=== PATIENT | male | born 1945 | race Caucasian/White ===

== ENCOUNTER 2017-09-29 10:27 | Inpatient (IN) ==
--- NOTE | 2017-09-29 10:40 | History & Physical Report ---
Date of Encounter: 09/29/17 Time of Encounter: 10:40 24 Hour HP Update - Instructions Instructions: If the History and Physical is less than 30 days old and was completed prior to A.M. admission and or procedure and has NOT been updated on calendar day of procedure please complete this update prior to performing procedure. - Update Patient reports changes in Medical Condition: No Changes in examination, assessment, or condition: No Changes in Medication: No Preop tests/diagnostics Reviewed: Yes Pre-Op MRSA Screen: Negative Surgery Remains Indicated: Yes Consent for Planned Operative Procedure(s) Verified: Yes - Pre-Operative Checklist Preoperative Checklist Indicated: No Prophylactic Antibiotic Ordered: Yes Home Medications Include Beta Sariah: No Beta Sariah Taken Today (Day of Surgery): No Beta Sariah Taken Yesterday (Day Prior to Surgery): No Is VTE Prophylaxis Indicated?: NO
[2017-09-29] MEDS ORDERED: Acetaminophen IV 1,000 MG/100 ML INFUS..BTL IVPB ONE (10:58)
[2017-09-29] MEDS ORDERED: cefOXitin 2,000 MG in Water for inj. (sterile) 20 ML 10 ML IVP ONE (11:02)
--- NOTE | 2017-09-29 11:06 | Anesthesia Evaluation PreOp ---
Date of Encounter: 09/29/17 Time of Encounter: 11:06 - Past History Planned Operation: Robotic colon resection, right colectomy Cardiac History: [place] (2002), HTN, Hyperlipidemia, Cardiac Stent (x1 2002) Pulmonary History: Former smoker (quit 2011), COPD TOP STITCHER History: Denies Any Significant HX Other Medical History: Other (Shingles, esohageal dysphagia) Anesthesia History: No Prior Anesthetic Complications, Past Anesthesia (appy) Alcohol Use: occasionally Drug use: none Medications and Allergies Captopril [Capoten] 25 mg PO BID 04/24/17 [History] Cyclobenzaprine [Flexeril] 10 mg PO TID PRN 04/24/17 [History] Gabapentin [Neurontin] 300 mg PO TID 04/24/17 [History] Metoprolol [Lopressor] 25 mg PO BID 04/24/17 [History] Atorvastatin [Lipitor] 40 mg PO HS #30 tablet 04/25/17 [Rx] Aspirin [Ecotrin] 325 mg PO DAILY 09/07/17 [History] 3 Allergy/AdvReac Type Severity Reaction Status Date / Time No Known Allergies Allergy Verified 09/29/17 10:54 - Meds/Allergy Pre-op Review Medications Reviewed: Yes Allergies Reviewed: Yes Beta Blockers on Current Med List: No Anesthesia Results - Labs Laboratory Tests 06/29/17 07/07/17 09/11/17 14:17 09:59 10:37 WBC Hgb Hct Plt Count Sodium 138 Potassium Chloride 108 H Carbon Dioxide 28 BUN 17 Creatinine POC Creatinine 0.90 09/21/17 09/21/17 15:58 15:58 WBC 9.0 Hgb 13.8 Hct 43.0 Plt Count 254 Sodium Potassium 4.5 Chloride Carbon Dioxide BUN Creatinine 1.04 POC Creatinine Echo with Saline Contrast Name: Vijay Zamora Date of Study: 04/25/2017 echocardiogram Impressions: No evidence of PFO by color Doppler or agitated saline. If clinically indicated, outpatient elective CARLOS would provide improved diagnostic senstivity for the detection of PFO. The aortic root is mildly dilated. The aortic root is 4.4cm cm. Moderately dilated left atrium. LVEF 50%. - Imaging EKG: report reviewed (SINUS RHYTHM Electronically Signed On 04-26-2017) Anesthesia Exam NPO (# of Hours): > 8 hrs Pain Scale: 0 Pain Scale Used: Numeric (1 - 10) - HEENT Pupil (Motor): Pupils equal, EOMI Mallampati: III Teeth: Poor dentition Oral Opening: Greater than 3 - TOP STITCHER LOC: Oriented TOP STITCHER Motor: Normal RUE, Normal LUE, Normal RLE, Normal LLE, Normal Face TOP STITCHER Sensory: Normal: RUE, LUE, RLE, LLE, Face - Cardiac Rhythm: Regular Murmur: None JVD: No Carotid Bruit: No - Pulmonary Breath Sounds: bilateral Clear Respiratory Effort: Symmetrical Anesthesia Assess/Plan ASA Score: 3 Modified Minoo Scale for Level of Consciousness: Cooperative, oriented, and tranquil Anesthetic Plan: General, Regional Autologous Blood: Yes Monitoring Plan: Standard Monitors Recovery Plan: PACU
[2017-09-29] MEDS: Ringers Solution, Lactated 1,000 ML IVC SCH ×2 (11:15→14:45)
[2017-09-29] MEDS ORDERED: *HR* FentaNYL (PF) 100 MCG/2 ML VIAL ONE (12:46)
[2017-09-29] MEDS ORDERED: *HR* Rocuronium Bromide 50 MG/5 ML VIAL ONE ×2 (12:46→17:01)
[2017-09-29] MEDS ORDERED: Dexamethasone 4 MG/ML VIAL ONE (12:46)
[2017-09-29] MEDS ORDERED: *HR* Propofol 200 MG/20 ML VIAL IVP ONE (12:46)
[2017-09-29] MEDS ORDERED: Lidocaine -MPF 2% 2 ML VIAL ONE ×5 (12:46→17:10)
[2017-09-29] MEDS ORDERED: Ondansetron 4 MG/2 ML VIAL ONE (12:46)
[2017-09-29] MEDS ORDERED: *HR* Midazolam HCl 2 MG/2 ML VIAL ONE (12:46)
[2017-09-29] MEDS ORDERED: Lidocaine -MPF 4% 5 ML AMPUL ONE (12:46)
[2017-09-29] MEDS ORDERED: Bupivacaine/EPI 1:200k 0.5%PF 30 ML VIAL ONE ×2 (13:13→13:47)
[2017-09-29] MEDS ORDERED: *HR* Labetalol 100 MG/20 ML MDV IVP PRN (13:26)
[2017-09-29] MEDS ORDERED: *HR* OxyCODONE Immed Rel 5 MG TABLET PO PRN (13:26)
[2017-09-29] MEDS ORDERED: *HR* Morphine 2 MG/ML SYRINGE IVP PRN (13:26)
[2017-09-29] MEDS ORDERED: *HR* Promethazine 25 MG/ML VIAL IVP PRN (13:26)
[2017-09-29] MEDS ORDERED: Ondansetron 4 MG/2 ML VIAL IVP ONE (13:26)
[2017-09-29] MEDS ORDERED: *HR* FentaNYL (PF) 100 MCG/2 ML VIAL IVP PRN (13:26)
[2017-09-29] MEDS ORDERED: EPHEDrine 50 MG/ML VIAL ONE (14:04)
[2017-09-29] MEDS ORDERED: *HR* PHENYLEPHRINE 1,000 MCG/10 ML SYRINGE IVP ONE (14:10)
[2017-09-29] MEDS ORDERED: CefOXitin 2,000 MG VIAL ONE (17:15)
[2017-09-29] MEDS ORDERED: Albumin Human 5% 25.0 GM/500 ML VIAL ONE (18:30)
[2017-09-29] MEDS ORDERED: Neostigmine Methylsulfate 3 MG/3 ML SYRINGE ONE (18:58)
[2017-09-29] MEDS ORDERED: CefOXitin 1,000 MG VIAL ONE (19:08)
[2017-09-29] MEDS ORDERED: *HR* Morphine 10 MG/ML VIAL ONE (19:09)
[2017-09-29] MEDS ORDERED: Furosemide 40 MG/4 ML VIAL ONE (19:14)
[2017-09-29] MEDS ORDERED: Ondansetron 4 MG/2 ML VIAL IVP PRN (19:32)
[2017-09-29] MEDS ORDERED: OXYCODONE Oral CONC 10 MG/0.5 ML ORAL.SYG SL PRN (19:32)
[2017-09-29] MEDS ORDERED: Naloxone 0.4 MG/ML INJ IVP PRN (19:32)
--- NOTE | 2017-09-29 19:32 | Operative Note ---
Date of procedure: 09/29/17 Pre-op diagnosis: Right colon mass Post-op diagnosis: same Procedure: Robot assisted right hemicolectomy Anesthesia: ESTELAA Surgeon: Papi Birmingham Was there an bilingual office assistant present: Yes Post Office Clerk: Radha Ramirez Estimated blood loss (cc): 150 Specimen: right colon Condition: stable Disposition: PACU Procedure in Detail: Date of surgery: 09/29/17 After properly identifying the patient the patient was brought to the operating room and placed in the supine position. After proper IV sedation was achieved followed by general endotracheal intubation the patient's abdomen was prepped and draped in normal sterile fashion. A timeout was performed noting the patient's name and type of procedure to be performed. A 15 blade scalpel was used to make an incision in the left upper quadrant followed by placement of a 12 mm Visiport was used used to dissect the subcutaneous tissue, external and internal oblique fascia, and transversalis abdominous fascia until the abdomen was entered. A laparoscopic camera was placed through the port which showed no injury to the intra-abdominal organs upon entry and the abdomen was insufflated with carbon dioxide. 3 additional ports were then placed under direct camera visualization along the a diagonal line from the left upper quadrant extending towards the right lower quadrant. The most inferior port was placed along the midline (infraumbilical) and was a 12 mm port. Between these 2 ports were placed two 8 mm ports under direct camera visualization. An additional left lower quadrant 12 mm port was then placed as well. The da Gena robot was brought towards the operative field and docked appropriately. Attention was placed in the lower quadrant and an attempted raising the cecum was made with adhesions preventing that from occurring. The decision was then made to focus on the transverse colon. The omentum was retracted superiorly and the transverse colon was retracted superiorly/ anteriorly as well. The base of the transverse colon mesentery was examined and in the right upper quadrant a window was created with Bovie cauterization. This allowed for dissection up towards the the duodenum which was identified and spared. The duodenum was retracted inferiorly further widening the window in the right upper quadrant. Dissection of the mesentery was then performed from superior to inferior along the right colon towards the TI . Additional dissection was then carried out between the omentum and the hepatic flexure to allow for identification of the tattooed area consistent with the patient's colonic mass in the right colon/hepatic flexure. This allowed for further dissection in this region and the lateral sidewall attachments of the right colon were also transected with Bovie cauterization. The ileocolic vessel was identified and transected with a robotic vessel sealer and the colic vessels feeding blood supply to the hepatic flexure were also transected with a vessel sealer. The terminal ileum was then transected as well with a robotic stapler and prior to transection of the transverse colon Firefly was injected through the IV which demonstrated evidence of adequate blood flow in the proximal transverse segment. This portion was then transected after a window was created in the mesentery. Transection was performed with a robotic JEFFERY stapler. The colonic segment was placed within the right upper quadrant and the patient underwent an anterograde [id number] anastomosis between the terminal ileum and proximal transverse colon. This was performed by creating an enterotomy after approximating the 2 segments of the bowel with 3-0 silk sutures. The enterotomy was created with Bovie cauterization and the robotic stapler was used to create the [id number]-[id number] anastomosis. The enterotomy was closed with a running 3-0 V locked suture. This was then imbricated with interrupted 3-0 silk sutures. Omentum was then tacked over the anastomosis with 3-0 interrupted silk sutures. All needles were then removed from the abdomen and reinspection demonstrated proper approximation. A 15 blade scalpel was used to make an incision at the level of the infraumbilical midline port. This was extended for a length of 7.5 cm and Bovie cauterization was used to dissected the subcutaneous tissue down until the rectus fascia was encountered and incised. A wound protector was placed in the wound to protect the subcutaneous tissue and the right colonic segment was grasped and removed from the abdomen. The incision was then closed with 2 #1 PDS sutures and the subcutaneous tissue was reapproximated with 30 and 2-0 Vicryl sutures after the subcutaneous tissue was irrigated with normal saline solution containing Mefoxin. All remaining incisions were closed with jean-pierre. Needle, sponge, and instrument counts were correct 2 and the incisions were covered with Band-Aids and 4 x 4's. The patient was aroused from IV sedation, extubated in the operating room without complication, and transported to the recovery room stable condition.
--- NOTE | 2017-09-29 20:35 | Anesthesia Evaluation Post Op ---
Date of Encounter: 09/29/17 Time of Encounter: 20:35 - Hydration Hydration: Ice chips - Discharge PostOp Status: Transfer Patient to floor (Patient's vital signs have been reviewed. Patient is stable postoperatively and has adequately recovered from anesthesia, unless otherwise noted. Patient is determined to have stable airway patency and respiratory function including respiratory rate and oxygen saturation. Patient has a stable heart rate, blood pressure and adequate hydration. Patients mental status is acceptable. Patients temperature is appropriate. Pain and nausea are adequately controlled.)
[2017-09-30] MEDS: 0.9 % Sodium Chloride 1,000 ML IVC SCH (01:19)
[2017-09-30] MEDS: cefOXitin 1,000 MG in Water for inj. (sterile) 20 ML 10 ML IVP SCH ×3 (01:19→18:47)
[2017-09-30] MEDS: Ketorolac 15 MG/ML VIAL IM SCH ×2 (01:23→06:10)
[2017-09-30 05:38] LABS: Basophils % 0.1 %; Hematocrit 37.8 % (37.5-50.1); Hemoglobin 12.8 g/dL (12.9-16.9); Immature Granulocytes % 0.5 % (0-4); Lymphocytes # 0.6 K/mcL (0.6-4.6); Lymphocytes % 4.3 %; Mean Corpuscular HGB Conc 33.9 g/dL (31.6-35.5); Mean Corpuscular Hemoglobin 31.7 pg (28.0-33.3); Mean Corpuscular Volume 93.6 fL (83.0-100.0); Mean Platelet Volume 10.6 fL (9.4-12.4); Monocytes # 0.8 K/mcL (0.0-1.3); Monocytes % 5.4 %; Neutrophils # 13.2 K/mcL (1.6-8.9); Platelet Count 208 K/mcL (140-400); Red Blood Count 4.04 M/mcL (4.19-5.50); Red Cell Distribution Width 13.5 % (11.5-14.5); Segmented Neutrophils % 89.7 %
[2017-09-30 05:53] LABS: BUN/Creatinine Ratio 17 (6-26); Blood Urea Nitrogen 21 mg/dL (8-23); Calcium 8.2 mg/dL (8.6-10.3); Carbon Dioxide 21 mEq/L (23-29); Chloride 107 mEq/L (98-107); Glucose 169 mg/dL (70-105); Magnesium 1.8 mg/dL (1.6-2.6); Osmolality,Calculated 289 (280-300); Potassium 4.4 mEq/L (3.5-5.1); Sodium 136 mEq/L (136-145); eGFR For African Americans > 60 (> 60); eGFR For Non-African Americans 59 (> 60)
[2017-09-30] MEDS ORDERED: Pantoprazole 40 MG VIAL IVP SCH (09:00)
--- NOTE | 2017-09-30 12:56 | General Surgery Progress Note ---
<Jalyn Donovan Maritza - Last Filed: 09/30/17 13:11> Date of Encounter: 09/30/17 Time of Encounter: 12:30 - Assessment and Plan (1) Mass of colon Current Visit: Yes Status: Acute POD #1 robotic-assisted right hemicolectomy with Dr. Birmingham Pathology pending May advance to full liquids for dinner Continue IV fluids at 80 mL's per hour Supportive care and pain control Remove Kinney catheter Ambulate hallways 3 times a day with assistance Incentive spirometer every 1 hour while awake PPI therapy daily Resume home medication regimen Repeat a.m. labs- CBC, BMP (2) Hypertension Current Visit: No Status: Chronic Normotensive at this time Resume home medication regimen Qualifiers: Hypertension type: unspecified Qualified Code(s): I10 - Essential (primary ) hypertension (3) CAD (coronary artery disease) Current Visit: No Status: Chronic Qualifiers: Coronary Disease-Associated Artery/Lesion type: unspecified vessel or lesion type [place] vs. transplanted heart: [place] heart Associated angina: angina presence unspecified Qualified Code(s): I25.10 - Atherosclerotic heart disease of [place] coronary artery without angina pectoris (4) Hyperlipemia Current Visit: No Status: Chronic Resume home medication regimen Qualifiers: Hyperlipidemia type: unspecified Qualified Code(s): E78.5 - Hyperlipidemia , unspecified (5) DVT prophylaxis Current Visit: No Status: Acute Heparin 5000 units subcutaneous twice daily for DVT prophylaxis Ambulate hallways 3 times a day with assistance EPCDs to bilateral lower extremities for DVT prophylaxis Subjective Patient reports: no new complaints, feels better, still having pain (post surgical pain- expected), no flatus, no bowel movement, afebrile Objective Vital Signs - Last 8 Hours Temp Pulse Resp BP Pulse Ox 09/30/17 12:45 98.1 F 81 16 115/60 93 09/30/17 09:11 98.2 F 105 16 113/72 95 Intake and Output 09/29/17 09/30/17 09/30/17 23:59 07:59 15:59 Intake Total 210 / 210 120 / 120 Output Total 350 / 350 1000 / 1000 750 / 750 Balance -350 / -350 -790 / -790 -630 / -630 Intake: IV Fluids 10 / 10 Mefoxin 1,000 MG In Water for inj. (sterile) 10 ML @ 150 mls/ hr IVP Q8HR [facility] Rx#:[id number] Oral 200 / 200 120 / 120 Output: Urine 200 / 200 Estimated Blood Loss 150 / 150 Catheter 1000 / 1000 750 / 750 Other: Weight 101.6 kg Patient Weight 09/30/17 23:59 Weight 101.6 kg - General physical appearance well developed, well nourished, no distress - Eyes normal ocular movement - ENT normal mucosa, atraumatic, normocephalic - Neck Neck exam: trachea midline - Respiratory normal respiratory effort, clear to auscultation - Cardiovascular Cardiovascular exam: Present: RRR - Abdomen Abdomen: Present: bowel sounds present, soft, tender (Expected postoperative tenderness) - Incision Incision: Present: clean and dry, intact - Genitourinary other (Kinney catheter to straight drain with clear, yellow urine) - Neurologic CN 2-12 grossly intact - Psychiatric oriented to time, oriented to person, oriented to place, speech is normal, memory intact - Labs 09/30/17 04:49 09/30/17 04:49 Diabetes panel 09/30/17 Range/Units 04:49 Sodium 136 (136-145) mEq/L Potassium 4.4 (3.5-5.1) mEq/L Chloride 107 (98-107) mEq/L Carbon Dioxide 21 L (23-29) mEq/L BUN 21 (8-23) mg/dL Creatinine 1.21 (0.70-1.30) mg/dL Glucose 169 H (70-105) mg/dL Calcium 8.2 L (8.6-10.3) mg/dL Calcium panel 09/30/17 Range/Units 04:49 Calcium 8.2 L (8.6-10.3) mg/dL Pituitary panel 09/30/17 Range/Units 04:49 Sodium 136 (136-145) mEq/L Potassium 4.4 (3.5-5.1) mEq/L Chloride 107 (98-107) mEq/L Carbon Dioxide 21 L (23-29) mEq/L BUN 21 (8-23) mg/dL Creatinine 1.21 (0.70-1.30) mg/dL Glucose 169 H (70-105) mg/dL Calcium 8.2 L (8.6-10.3) mg/dL Adrenal panel 09/30/17 Range/Units 04:49 Sodium 136 (136-145) mEq/L Potassium 4.4 (3.5-5.1) mEq/L Chloride 107 (98-107) mEq/L Carbon Dioxide 21 L (23-29) mEq/L BUN 21 (8-23) mg/dL Creatinine 1.21 (0.70-1.30) mg/dL Glucose 169 H (70-105) mg/dL Calcium 8.2 L (8.6-10.3) mg/dL - VTE Documentation of Mechanical Device: Intermittent pneumatic compression device Consult Discharge Plan - Plan Referrals: Papi Birmingham MD [Partnered Physician] - 10/14/17 10:00 am - Attending Attestation For this encounter, I have reviewed the SENIOR ESCROW OFFICER or PA documentation, treatment plan, and medical decision making; and I have had face to face time with this patient. <Papi Birmingham - Last Filed: 10/01/17 06:58> Date of Encounter: 09/30/17 Objective Vital Signs - Last 8 Hours Temp Pulse Resp BP Pulse Ox 10/01/17 06:38 97.5 F L 64 15 101/65 94 10/01/17 04:14 98.3 F 62 15 104/67 92 Intake and Output 09/30/17 09/30/17 10/01/17 15:59 23:59 07:59 Intake Total 130 / 130 120 / 120 0 / 0 Output Total 750 / 750 700 / 700 1500 / 1500 Balance -620 / -620 -580 / -580 -1500 / -1500 Intake: IV Fluids 10 / 10 Mefoxin 1,000 MG In Water for 10 / 10 inj. (sterile) 10 ML @ 150 mls/ hr IVP Q8HR [facility] Rx#:[id number] Oral 120 / 120 120 / 120 0 / 0 Output: Urine 0 / 0 0 / 0 Catheter 750 / 750 700 / 700 1500 / 1500 Other: Weight 101.4 kg Patient Weight 10/01/17 23:59 Weight 101.4 kg - Labs 10/01/17 05:08 10/01/17 05:08 Diabetes panel 10/01/17 Range/Units 05:08 Sodium 138 (136-145) mEq/L Potassium 4.2 (3.5-5.1) mEq/L Chloride 109 H (98-107) mEq/L Carbon Dioxide 25 (23-29) mEq/L BUN 18 (8-23) mg/dL Creatinine 1.05 (0.70-1.30) mg/dL Glucose 118 H (70-105) mg/dL Calcium 8.3 L (8.6-10.3) mg/dL Calcium panel 10/01/17 Range/Units 05:08 Calcium 8.3 L (8.6-10.3) mg/dL Pituitary panel 10/01/17 Range/Units 05:08 Sodium 138 (136-145) mEq/L Potassium 4.2 (3.5-5.1) mEq/L Chloride 109 H (98-107) mEq/L Carbon Dioxide 25 (23-29) mEq/L BUN 18 (8-23) mg/dL Creatinine 1.05 (0.70-1.30) mg/dL Glucose 118 H (70-105) mg/dL Calcium 8.3 L (8.6-10.3) mg/dL Adrenal panel 10/01/17 Range/Units 05:08 Sodium 138 (136-145) mEq/L Potassium 4.2 (3.5-5.1) mEq/L Chloride 109 H (98-107) mEq/L Carbon Dioxide 25 (23-29) mEq/L BUN 18 (8-23) mg/dL Creatinine 1.05 (0.70-1.30) mg/dL Glucose 118 H (70-105) mg/dL Calcium 8.3 L (8.6-10.3) mg/dL - Attending Attestation I reviewed the above assessment and evaluation and agree with the above plan.
[2017-09-30] MEDS ORDERED: MORPHINE SUL Oral CONC 10 MG/0.5 ML ORAL.SYG PO PRN (13:17)
[2017-09-30] MEDS ORDERED: OXYCODONE Oral CONC 10 MG/0.5 ML ORAL.SYG SL PRN (13:17)
[2017-09-30] MEDS: Gabapentin 300 MG CAPSULE PO SCH ×2 (18:14→21:50)
[2017-09-30] MEDS ORDERED: cefOXitin 1,000 MG in Water for inj. (sterile) 20 ML 10 ML IVP SCH (19:00)
[2017-09-30] MEDS: *HR* Heparin 5,000 UNIT/ML VIAL SQ SCH (19:46)
[2017-09-30] MEDS: OXYCODONE Oral CONC 10 MG/0.5 ML ORAL.SYG SL PRN (20:31)
[2017-10-01] MEDS: 0.9 % Sodium Chloride 1,000 ML IVC SCH ×3 (03:36→09:47)
[2017-10-01 06:01] LABS: Hematocrit 37.6 % (37.5-50.1); Hemoglobin 12.1 g/dL (12.9-16.9); Immature Granulocytes % 0.6 % (0-4); Lymphocytes % 6.7 %; Mean Corpuscular HGB Conc 32.2 g/dL (31.6-35.5); Mean Corpuscular Hemoglobin 31.5 pg (28.0-33.3); Mean Corpuscular Volume 97.9 fL (83.0-100.0); Mean Platelet Volume 10.7 fL (9.4-12.4); Platelet Count 198 K/mcL (140-400); Red Blood Count 3.84 M/mcL (4.19-5.50); Red Cell Distribution Width 13.8 % (11.5-14.5); Segmented Neutrophils % 81.7 %
[2017-10-01 06:02] LABS: Basophils % 0.1 %; Lymphocytes # 1.3 K/mcL (0.6-4.6); Monocytes # 2.1 K/mcL (0.0-1.3); Monocytes % 10.9 %; Neutrophils # 15.5 K/mcL (1.6-8.9)
[2017-10-01 06:10] LABS: BUN/Creatinine Ratio 17 (6-26); Blood Urea Nitrogen 18 mg/dL (8-23); Calcium 8.3 mg/dL (8.6-10.3); Carbon Dioxide 25 mEq/L (23-29); Chloride 109 mEq/L (98-107); Glucose 118 mg/dL (70-105); Osmolality,Calculated 289 (280-300); Potassium 4.2 mEq/L (3.5-5.1); Sodium 138 mEq/L (136-145); eGFR For African Americans > 60 (> 60); eGFR For Non-African Americans > 60 (> 60)
[2017-10-01] MEDS: *HR* Heparin 5,000 UNIT/ML VIAL SQ SCH ×2 (06:16→16:58)
[2017-10-01] MEDS: Aspirin Enteric Coated 325 MG Tablet PO SCH (07:46)
[2017-10-01] MEDS: Gabapentin 300 MG CAPSULE PO SCH ×3 (07:46→20:35)
[2017-10-01] MEDS ORDERED: Acetaminophen IV 1,000 MG/100 ML INFUS..BTL IVPB ONE (08:02)
[2017-10-01] MEDS: Ketorolac 15 MG/ML VIAL IM SCH (08:10)
[2017-10-01] MEDS: Ringers Solution, Lactated 1,000 ML IVC SCH (08:10)
--- NOTE | 2017-10-01 08:22 | General Surgery Progress Note ---
<JosephTrinidad Jak - Last Filed: 10/01/17 15:31> Date of Encounter: 10/01/17 Time of Encounter: 07:45 - Assessment and Plan (1) Mass of colon Current Visit: Yes Status: Acute Date of procedure: 09/29/17 Pre-op diagnosis: Right colon mass Post-op diagnosis: same Procedure: Robot assisted right hemicolectomy Anesthesia: GETA Surgeon: Papi Birmingham Was there an civil engineering assistant present: Yes Tennis Director: Radha Ramirez Estimated blood loss (cc): 150 POD #2 as above. Pathology pending. He was noted to have advance to full liquid diet for dinner yesterday and states he tolerated that without difficulty but overnight he began feeling significantly bloated and denied passing flatus. He states moderate abdominal discomfort that feels similar to after surgery but is leery to try the narcotic pain medication as he felt like he had a reaction to that yesterday. He is noted to have an increase in his white blood cell count from 14.7 to 18.9 and without bands. His abdomen is distended but soft and with hypoactive/faint bowel sounds at best however he denies nausea or vomiting. Plan: CT abdomen pelvis with PO and IV contrast to rule out any acute pathology in the abdomen contributing to increase in white blood cell count continue supportive care and discomfort management will add Ofirmev 1 g now IV and adjust pain medication dietary recommendations pending results of CT continue incentive spirometry continue G.I. and DVT prophylaxis ambulate at least 3 times daily out of bed to chair for all trays. Do not eat or drink trays in bed. Serial abdominal exams repeat a.m. labs will initiate Levaquin and Flagyl to cover both bowel and lung Update: CT abdomen pelvis is without evidence of abscess or extravasation of contrast. There are incidental findings of wedge-shaped delayed enhancement of the left peripheral zone of the prostate gland and is recommended to be followed up as an outpatient after resolution of acute illness and intermediate left adrenal nodules could be further further explore, nonurgent basis. His bowel sounds are active any states feelings of need to have a bowel movement after drinking the contrast. He denies abdominal discomfort at this time. Continue full liquid diet, advanced diet as tolerated pending passing of flatus and bowel movement. (2) Leukocytosis Current Visit: Yes Status: Acute Etiology abdominal versus pulmonary. CT abdomen pelvis and to view chest x-ray pending. IV antibiotics initiated. See assessment and plan above Update: chest x-ray with right lower lobe airspace disease suspicious for an interval trait. Levaquin was initiated today. See assessment and plan above. Qualifiers: Leukocytosis type: unspecified Qualified Code(s): D72.829 - Elevated white blood cell count, unspecified (3) Hypertension Current Visit: No Status: Chronic Mildly hypotensive at this time. Will hold antihypertensives Qualifiers: Hypertension type: unspecified Qualified Code(s): I10 - Essential (primary ) hypertension (4) CAD (coronary artery disease) Current Visit: No Status: Chronic Last echo in April 2017 revealed normal systolic and diastolic function. Qualifiers: Coronary Disease-Associated Artery/Lesion type: unspecified vessel or lesion type [place] vs. transplanted heart: [place] heart Associated angina: angina presence unspecified Qualified Code(s): I25.10 - Atherosclerotic heart disease of [place] coronary artery without angina pectoris (5) DVT prophylaxis Current Visit: Yes Status: Acute Heparin sub Q BID EP CDs while in bed ambulation (6) Shortness of breath Current Visit: Yes Status: Acute Patient reports mild shortness of breath with activity. He is noted to have adventitious breath sounds per physical assessment above. We will obtain imaging to rule out community acquired pneumonia as symptoms began less than 48 hours after admission versus atelectasis versus fluid overload. Subjective Patient reports: still having pain, tolerating liquids well, voiding w/o difficulty, no flatus, no bowel movement, afebrile Narrative: Vijay reports an episode of feeling "butterflies and like I was going to pass out when I stood up yesterday," after getting pain medication. He also reports mild abdominal discomfort, but also notes he's afraid to take the pain medication given his reaction to it yesterday. He reports feeling bloated that came on suddenly yesterday. He denies passing gas are having bowel movements. He denies feeling short of breath when at rest but feels labored when he tries to get up. He denies fever or chills. He denies cough. He denies nausea or vomiting. Objective Vital Signs - Last 8 Hours Temp Pulse Resp BP Pulse Ox 10/01/17 07:51 94 10/01/17 06:38 97.5 F L 64 15 101/65 94 10/01/17 04:14 98.3 F 62 15 104/67 92 Intake and Output 09/30/17 10/01/17 10/01/17 23:59 07:59 15:59 Intake Total 120 / 120 0 / 0 Output Total 700 / 700 1500 / 1500 Balance -580 / -580 -1500 / -1500 Intake: Oral 120 / 120 0 / 0 Output: Urine 0 / 0 0 / 0 Catheter 700 / 700 1500 / 1500 Other: Weight 101.4 kg Patient Weight 10/01/17 23:59 Weight 101.4 kg VITAL SIGNS: Reviewed; mildly hypotensive. See [facility] GENERAL: In no apparent distress. HEENT: Normocephalic, atraumatic, pupils are equal and reactive, extraocular motions intact, oropharynx is pink and moist, there is no neck adenopathy. There IS mild JVD noted. CHEST/RESPIRATORY: The thorax is free from signs of trauma. Lung sounds: normal respiratory effort, by basilar crackles more notably on the right, decreased throughout. Slightly labored with activity. Able to speak in complete sentences.] CARDIAC: Distant heart tones, Regular rate and rhythm. Normal S1 and S2, without murmurs, gallops, or rubs. VASCULAR: No peripheral Edema; 2+ peripheral pulses.; There is some posterior sacral edema. ABDOMEN: soft, distended, hypoactive and faint at best bowel sounds, no drainage from the surgical sites noted. There is one area that developed a blister near the banding most likely consistent with reactionary. INCISION: Surgical incision is clean, dry, and intact. There are no signs of cellulitis or infection noted. MUSCULOSKELETAL: Good range of motion of all major joints. Extremities without clubbing, cyanosis or edema. NEUROLOGIC EXAM: Alert and oriented x 3. Speech normal. Follows commands. PSYCHIATRIC: Mood normal. SKIN: No rash or lesions-C abdominal exam above for further description. - Labs 10/01/17 05:08 10/01/17 05:08 Diabetes panel 10/01/17 Range/Units 05:08 Sodium 138 (136-145) mEq/L Potassium 4.2 (3.5-5.1) mEq/L Chloride 109 H (98-107) mEq/L Carbon Dioxide 25 (23-29) mEq/L BUN 18 (8-23) mg/dL Creatinine 1.05 (0.70-1.30) mg/dL Glucose 118 H (70-105) mg/dL Calcium 8.3 L (8.6-10.3) mg/dL Calcium panel 10/01/17 Range/Units 05:08 Calcium 8.3 L (8.6-10.3) mg/dL Pituitary panel 10/01/17 Range/Units 05:08 Sodium 138 (136-145) mEq/L Potassium 4.2 (3.5-5.1) mEq/L Chloride 109 H (98-107) mEq/L Carbon Dioxide 25 (23-29) mEq/L BUN 18 (8-23) mg/dL Creatinine 1.05 (0.70-1.30) mg/dL Glucose 118 H (70-105) mg/dL Calcium 8.3 L (8.6-10.3) mg/dL Adrenal panel 10/01/17 Range/Units 05:08 Sodium 138 (136-145) mEq/L Potassium 4.2 (3.5-5.1) mEq/L Chloride 109 H (98-107) mEq/L Carbon Dioxide 25 (23-29) mEq/L BUN 18 (8-23) mg/dL Creatinine 1.05 (0.70-1.30) mg/dL Glucose 118 H (70-105) mg/dL Calcium 8.3 L (8.6-10.3) mg/dL - VTE Documentation of Mechanical Device: Intermittent pneumatic compression device Consult Discharge Plan - Plan Referrals: Papi Birmingham MD [Partnered Physician] - 10/14/17 10:00 am <Papi Birmingham - Last Filed: 10/01/17 18:50> Date of Encounter: 10/01/17 Objective Vital Signs - Last 8 Hours Temp Pulse Resp BP Pulse Ox 10/01/17 11:18 97.4 F L 73 16 101/68 97 Intake and Output 10/01/17 10/01/17 10/01/17 07:59 15:59 23:59 Intake Total 0 / 0 560 / 560 Output Total 1500 / 1500 250 / 250 Balance -1500 / -1500 310 / 310 Intake: IV Fluids 200 / 200 Ofirmev 1,000 mg/100 ml 1,000 100 / 100 mg In 100 ml @ 400 mls/hr IVPB ONCE ONE Rx#:[id number] Flagyl Premix 500 MG/100 ML 500 100 / 100 mg In 100 ml @ 100 mls/hr IVPB Q8H [facility] Rx#:[id number] Oral 0 / 0 360 / 360 Output: Urine 0 / 0 250 / 250 Catheter 1500 / 1500 Other: Meal Lunch Dinner Percent of Meal Consumed 100% 100% Stool Size Small Stool Consistency soft Stool Characteristics Normal for Patient Stool Color Renato Colored Pale # Voids 1 # Bowel Movements 1 Weight 101.4 kg Patient Weight 10/01/17 23:59 Weight 101.4 kg - Labs 10/01/17 15:49 10/01/17 15:49 Diabetes panel 10/01/17 10/01/17 Range/Units 05:08 15:49 Sodium 138 137 (136-145) mEq/L Potassium 4.2 4.0 (3.5-5.1) mEq/L Chloride 109 H 108 H (98-107) mEq/L Carbon Dioxide 25 24 (23-29) mEq/L BUN 18 18 (8-23) mg/dL Creatinine 1.05 1.01 (0.70-1.30) mg/dL Glucose 118 H 131 H (70-105) mg/dL Calcium 8.3 L 8.4 L (8.6-10.3) mg/dL Calcium panel 10/01/17 10/01/17 Range/Units 05:08 15:49 Calcium 8.3 L 8.4 L (8.6-10.3) mg/dL Pituitary panel 10/01/17 10/01/17 Range/Units 05:08 15:49 Sodium 138 137 (136-145) mEq/L Potassium 4.2 4.0 (3.5-5.1) mEq/L Chloride 109 H 108 H (98-107) mEq/L Carbon Dioxide 25 24 (23-29) mEq/L BUN 18 18 (8-23) mg/dL Creatinine 1.05 1.01 (0.70-1.30) mg/dL Glucose 118 H 131 H (70-105) mg/dL Calcium 8.3 L 8.4 L (8.6-10.3) mg/dL Adrenal panel 10/01/17 10/01/17 Range/Units 05:08 15:49 Sodium 138 137 (136-145) mEq/L Potassium 4.2 4.0 (3.5-5.1) mEq/L Chloride 109 H 108 H (98-107) mEq/L Carbon Dioxide 25 24 (23-29) mEq/L BUN 18 18 (8-23) mg/dL Creatinine 1.05 1.01 (0.70-1.30) mg/dL Glucose 118 H 131 H (70-105) mg/dL Calcium 8.3 L 8.4 L (8.6-10.3) mg/dL - Attending Attestation I have personally performed a face to face evaluation on this patient. I have reviewed and agree with the care plan. History and Exam by me shows: Review the above assessment and evaluation and agree with the above plan. Noted elevated white count and a CAT scan of the abdomen and pelvis was performed which demonstrated no evidence of a leak at the level of the anastomosis and no significant free fluid or abscess. At chest x-ray was performed which was rated a possible atelectasis versus pneumonia. He has has had flatus and bowel movements and has been advanced to soft diet which she is tolerating. Continue out of bed and ambulation. Repeat CBC in a.m.
[2017-10-01] MEDS: Levofloxacin 750 MG/150 ML 750 MG/150 ML BAG IVPB SCH (10:42)
[2017-10-01] MEDS: MetroNIDAZOLE 500 MG/100 ML 500 MG/100 ML BAG IVPB SCH ×2 (13:17→20:35)
[2017-10-01 16:16] LABS: Basophils % 0.2 %; Eosinophils % 0.2 %; Hematocrit 39.7 % (37.5-50.1); Hemoglobin 12.6 g/dL (12.9-16.9); Immature Granulocytes % 0.7 % (0-4); Lymphocytes # 1.3 K/mcL (0.6-4.6); Lymphocytes % 7.6 %; Mean Corpuscular HGB Conc 31.7 g/dL (31.6-35.5); Mean Corpuscular Hemoglobin 31.6 pg (28.0-33.3); Mean Corpuscular Volume 99.5 fL (83.0-100.0); Mean Platelet Volume 10.7 fL (9.4-12.4); Monocytes # 1.6 K/mcL (0.0-1.3); Monocytes % 9.5 %; Neutrophils # 13.4 K/mcL (1.6-8.9); Platelet Count 203 K/mcL (140-400); Red Blood Count 3.99 M/mcL (4.19-5.50); Red Cell Distribution Width 13.8 % (11.5-14.5); Segmented Neutrophils % 81.8 %
[2017-10-01 16:35] LABS: BUN/Creatinine Ratio 18 (6-26); Blood Urea Nitrogen 18 mg/dL (8-23); Calcium 8.4 mg/dL (8.6-10.3); Carbon Dioxide 24 mEq/L (23-29); Chloride 108 mEq/L (98-107); Glucose 131 mg/dL (70-105); Osmolality,Calculated 288 (280-300); Sodium 137 mEq/L (136-145); eGFR For African Americans > 60 (> 60); eGFR For Non-African Americans > 60 (> 60)
[2017-10-02] MEDS: MetroNIDAZOLE 500 MG/100 ML 500 MG/100 ML BAG IVPB SCH ×3 (03:26→17:57)
[2017-10-02] MEDS: *HR* Heparin 5,000 UNIT/ML VIAL SQ SCH ×2 (06:14→17:57)
[2017-10-02] MEDS: Levofloxacin 750 MG/150 ML 750 MG/150 ML BAG IVPB SCH (08:10)
[2017-10-02] MEDS: Gabapentin 300 MG CAPSULE PO SCH ×3 (08:10→21:33)
[2017-10-02] MEDS: Aspirin Enteric Coated 325 MG Tablet PO SCH (08:10)
[2017-10-02 09:32] LABS: Basophils % 0.3 %; Eosinophils # 0.1 K/mcL (0.0-0.6); Eosinophils % 0.9 %; Hematocrit 40.6 % (37.5-50.1); Hemoglobin 13.3 g/dL (12.9-16.9); Immature Granulocytes % 0.5 % (0-4); Lymphocytes % 7.5 %; Mean Corpuscular HGB Conc 32.8 g/dL (31.6-35.5); Mean Corpuscular Volume 97.6 fL (83.0-100.0); Mean Platelet Volume 10.7 fL (9.4-12.4); Monocytes # 1.1 K/mcL (0.0-1.3); Monocytes % 8.1 %; Neutrophils # 10.8 K/mcL (1.6-8.9); Platelet Count 201 K/mcL (140-400); Red Blood Count 4.16 M/mcL (4.19-5.50); Red Cell Distribution Width 14.1 % (11.5-14.5); Segmented Neutrophils % 82.7 %
[2017-10-02 09:50] LABS: BUN/Creatinine Ratio 14 (6-26); Blood Urea Nitrogen 14 mg/dL (8-23); Calcium 8.9 mg/dL (8.6-10.3); Carbon Dioxide 27 mEq/L (23-29); Chloride 107 mEq/L (98-107); Glucose 152 mg/dL (70-105); Osmolality,Calculated 287 (280-300); Potassium 4.1 mEq/L (3.5-5.1); Sodium 137 mEq/L (136-145); eGFR For African Americans > 60 (> 60); eGFR For Non-African Americans > 60 (> 60)
--- NOTE | 2017-10-02 10:48 | General Surgery Progress Note ---
<Jalyn Donovan Maritza - Last Filed: 10/02/17 10:45> Date of Encounter: 10/02/17 Time of Encounter: 10:20 - Assessment and Plan (1) Mass of colon Current Visit: Yes Status: Acute POD #3 robotic-assisted right hemicolectomy with Dr. Birmingham Pathology pending Patient placed back on clear liquids Check acute abdominal series- abdominal distention May add IV fluids pending x-ray results Supportive care and pain control Ambulate hallways 3 times a day with assistance Incentive spirometer every 1 hour while awake PPI therapy daily Resume home medication regimen Repeat a.m. labs- CBC, BMP (2) Hypertension Current Visit: No Status: Chronic Normotensive at this time Resume home medication regimen Qualifiers: Hypertension type: unspecified Qualified Code(s): I10 - Essential (primary ) hypertension (3) CAD (coronary artery disease) Current Visit: No Status: Chronic Qualifiers: Coronary Disease-Associated Artery/Lesion type: unspecified vessel or lesion type [place] vs. transplanted heart: [place] heart Associated angina: angina presence unspecified Qualified Code(s): I25.10 - Atherosclerotic heart disease of [place] coronary artery without angina pectoris (4) Hyperlipemia Current Visit: No Status: Chronic Continue home medication regimen Qualifiers: Hyperlipidemia type: unspecified Qualified Code(s): E78.5 - Hyperlipidemia , unspecified (5) Ileus, postoperative Current Visit: Yes Status: Acute Suspect ileus Patient placed back on clear liquids Check acute abdominal series- abdominal distention May add IV fluids pending x-ray results (6) Urinary hesitancy Current Visit: Yes Status: Acute Add Flomax and give a dose today Patient will need work-up for prostate when he recovers from his surgery (7) DVT prophylaxis Current Visit: Yes Status: Acute Heparin 5000 units subcutaneous twice daily for DVT prophylaxis Ambulate hallways 3 times a day with assistance EPCDs to bilateral lower extremities for DVT prophylaxis Subjective Patient reports: still having pain (generalized abdominal discomfort- complaint of distention and cramping today), no flatus (denies flatus today), bowel movement (last BM yesterday (total of 2)), afebrile, other (Complaint of difficulty with urination, feels pressure every 2 hours and experirencing signifcant hesitancy) Objective Vital Signs - Last 8 Hours Temp Pulse Resp BP Pulse Ox 10/02/17 07:25 98.6 F 95 15 116/76 95 10/02/17 04:20 98.2 F 100 14 97/63 93 Intake and Output 10/01/17 10/02/17 10/02/17 23:59 07:59 15:59 Intake Total 100 / 100 100 / 100 240 / 240 Output Total 0 / 0 0 / 0 Balance 100 / 100 100 / 100 240 / 240 Intake: IV Fluids 100 / 100 100 / 100 Flagyl Premix 500 MG/100 ML 500 100 / 100 100 / 100 mg In 100 ml @ 100 mls/hr IVPB Q8H [facility] Rx#:[id number] Oral 0 / 0 0 / 0 240 / 240 Output: Urine 0 / 0 0 / 0 Other: Meal Dinner Breakfast Percent of Meal Consumed 100% 75% Stool Size Small Stool Consistency soft Stool Characteristics Normal for Patient Stool Color Renato Colored Pale # Voids 1 0 # Bowel Movements 1 Weight 101.242 kg Patient Weight 10/02/17 23:59 Weight 101.242 kg - General physical appearance well developed, well nourished, moderate distress - Eyes normal ocular movement - ENT normal mucosa, atraumatic, normocephalic - Neck Neck exam: trachea midline - Respiratory normal respiratory effort, clear to auscultation, other (diminished bibasilar bases) - Cardiovascular Cardiovascular exam: Present: tachycardia - Abdomen Abdomen: Present: soft, distended, tender (expected tenderness) - Incision Incision: Present: clean and dry, intact - Neurologic CN 2-12 grossly intact - Psychiatric oriented to time, oriented to person, oriented to place, speech is normal, memory intact - Labs 10/02/17 09:11 10/02/17 09:11 Diabetes panel 10/01/17 10/02/17 Range/Units 15:49 09:11 Sodium 137 137 (136-145) mEq/L Potassium 4.0 4.1 (3.5-5.1) mEq/L Chloride 108 H 107 (98-107) mEq/L Carbon Dioxide 24 27 (23-29) mEq/L BUN 18 14 (8-23) mg/dL Creatinine 1.01 1.02 (0.70-1.30) mg/dL Glucose 131 H 152 H (70-105) mg/dL Calcium 8.4 L 8.9 (8.6-10.3) mg/dL Calcium panel 10/01/17 10/02/17 Range/Units 15:49 09:11 Calcium 8.4 L 8.9 (8.6-10.3) mg/dL Pituitary panel 10/01/17 10/02/17 Range/Units 15:49 09:11 Sodium 137 137 (136-145) mEq/L Potassium 4.0 4.1 (3.5-5.1) mEq/L Chloride 108 H 107 (98-107) mEq/L Carbon Dioxide 24 27 (23-29) mEq/L BUN 18 14 (8-23) mg/dL Creatinine 1.01 1.02 (0.70-1.30) mg/dL Glucose 131 H 152 H (70-105) mg/dL Calcium 8.4 L 8.9 (8.6-10.3) mg/dL Adrenal panel 10/01/17 10/02/17 Range/Units 15:49 09:11 Sodium 137 137 (136-145) mEq/L Potassium 4.0 4.1 (3.5-5.1) mEq/L Chloride 108 H 107 (98-107) mEq/L Carbon Dioxide 24 27 (23-29) mEq/L BUN 18 14 (8-23) mg/dL Creatinine 1.01 1.02 (0.70-1.30) mg/dL Glucose 131 H 152 H (70-105) mg/dL Calcium 8.4 L 8.9 (8.6-10.3) mg/dL - VTE Documentation of Mechanical Device: Intermittent pneumatic compression device Consult Discharge Plan - Plan Referrals: Ppai Birmingham MD [Partnered Physician] - 10/14/17 10:00 am - Attending Attestation For this encounter, I have reviewed the [employer] or PA documentation, treatment plan, and medical decision making; and I have had face to face time with this patient. <Papi Birmingham - Last Filed: 10/05/17 12:10> Date of Encounter: 10/02/17 Objective Vital Signs - Last 8 Hours Temp Pulse Resp BP Pulse Ox 10/05/17 07:06 98.4 F 96 15 144/92 93 Intake and Output 10/04/17 10/05/17 10/05/17 23:59 07:59 15:59 Intake Total 100 / 100 1100 / 1100 Output Total 250 / 250 600 / 600 250 / 250 Balance -150 / -150 500 / 500 -250 / -250 Intake: IV Fluids 100 / 100 1100 / 1100 0.9 % Sodium Chloride 1,000 ML 1000 / 1000 @ 80 mls/hr IVC .[id number] [facility] Rx #:[id number] Flagyl Premix 500 MG/100 ML 500 100 / 100 100 / 100 mg In 100 ml @ 100 mls/hr IVPB Q8H [facility] Rx#:[id number] Oral 0 / 0 Output: Urine 250 / 250 300 / 300 250 / 250 Gastric Tube Lavage Amount 300 / 300 Right Nare 300 / 300 Other: Meal npo NPO Stool Size Small Stool Consistency soft # Voids 1 # Bowel Movements 1 Blood Glucose* 113 144 - Labs 10/05/17 05:19 10/05/17 05:19 Diabetes panel 10/05/17 10/05/17 10/05/17 Range/Units 05:19 08:10 09:11 Sodium 140 (136-145) mEq/L Potassium 3.7 (3.5-5.1) mEq/L Chloride 111 H (98-107) mEq/L Carbon Dioxide 24 (23-29) mEq/L BUN 11 (8-23) mg/dL Creatinine 0.92 (0.70-1.30) mg/dL Glucose 117 H (70-105) mg/dL Calcium 8.3 L (8.6-10.3) mg/dL AST 17 (13-39) Units/L ALT 12 (7-52) Units/L Alkaline Phosphatase 66 (34-104) Units/L Albumin 2.7 L 3.1 L (3.5-5.7) g/dL Calcium panel 10/05/17 10/05/17 10/05/17 Range/Units 05:19 08:10 09:11 Calcium 8.3 L (8.6-10.3) mg/dL Phosphorus 2.8 (2.7-4.5) mg/dL Albumin 2.7 L 3.1 L (3.5-5.7) g/dL Pituitary panel 10/05/17 Range/Units 05:19 Sodium 140 (136-145) mEq/L Potassium 3.7 (3.5-5.1) mEq/L Chloride 111 H (98-107) mEq/L Carbon Dioxide 24 (23-29) mEq/L BUN 11 (8-23) mg/dL Creatinine 0.92 (0.70-1.30) mg/dL Glucose 117 H (70-105) mg/dL Calcium 8.3 L (8.6-10.3) mg/dL Adrenal panel 10/05/17 10/05/17 10/05/17 Range/Units 05:19 08:10 09:11 Sodium 140 (136-145) mEq/L Potassium 3.7 (3.5-5.1) mEq/L Chloride 111 H (98-107) mEq/L Carbon Dioxide 24 (23-29) mEq/L BUN 11 (8-23) mg/dL Creatinine 0.92 (0.70-1.30) mg/dL Glucose 117 H (70-105) mg/dL Calcium 8.3 L (8.6-10.3) mg/dL Total Bilirubin 0.7 (0.3-1.0) mg/dL AST 17 (13-39) Units/L ALT 12 (7-52) Units/L Alkaline Phosphatase 66 (34-104) Units/L Albumin 2.7 L 3.1 L (3.5-5.7) g/dL - Attending Attestation I reviewed the above assessment and evaluation and agree with the above- mentioned plan.
[2017-10-02] MEDS: Metoclopramide 10 MG/2 ML VIAL IVP SCH ×2 (11:28→17:57)
[2017-10-02] MEDS: OXYCODONE Oral CONC 10 MG/0.5 ML ORAL.SYG SL PRN ×2 (11:56→18:08)
[2017-10-02] MEDS: 0.9 % Sodium Chloride 1,000 ML IVC SCH (15:10)
[2017-10-02 19:11] LABS: Bilirubin,Urine Negative (Negative); Blood,Urine Negative (Negative); Clarity,Urine Clear (Clear); Color,Urine Yellow (Yellow); Glucose,Urine (UA) Normal (Normal); Ketones,Urine Negative (Negative); Leukocyte Esterase,Urine Trace (Negative); Nitrite,Urine Negative (Negative); Protein,Urine Trace mg/dL (Neg-Trace); Specific Gravity,Urine 1.025 (1.010-1.025); Urobilinogen,Urine Normal (Normal)
[2017-10-02 19:16] LABS: Bacteria,Urine None Seen per hpf (None-Few); Hyaline Casts,Urine None Seen per lpf (None-Few); RBC,Urine 0-3 per hpf (0-3); Squamous Epithelial Cell,Urine Moderate per lpf (None-Few); WBC,Urine 0-3 per hpf (0-3)
[2017-10-03] MEDS: Metoclopramide 10 MG/2 ML VIAL IVP SCH ×5 (00:24→23:53)
[2017-10-03] MEDS: MetroNIDAZOLE 500 MG/100 ML 500 MG/100 ML BAG IVPB SCH ×3 (02:33→20:26)
[2017-10-03] MEDS: 0.9 % Sodium Chloride 1,000 ML IVC SCH ×2 (05:58→16:50)
[2017-10-03] MEDS: *HR* Heparin 5,000 UNIT/ML VIAL SQ SCH ×2 (05:58→16:49)
[2017-10-03] MEDS: OXYCODONE Oral CONC 10 MG/0.5 ML ORAL.SYG SL PRN (06:59)
[2017-10-03 07:37] LABS: Basophils # 0.1 K/mcL (0.0-0.2); Basophils % 0.4 %; Eosinophils # 0.2 K/mcL (0.0-0.6); Eosinophils % 1.3 %; Hematocrit 39.9 % (37.5-50.1); Hemoglobin 12.8 g/dL (12.9-16.9); Immature Granulocytes % 0.7 % (0-4); Lymphocytes # 1.2 K/mcL (0.6-4.6); Lymphocytes % 8.1 %; Mean Corpuscular HGB Conc 32.1 g/dL (31.6-35.5); Mean Corpuscular Hemoglobin 31.1 pg (28.0-33.3); Mean Corpuscular Volume 96.8 fL (83.0-100.0); Mean Platelet Volume 11.1 fL (9.4-12.4); Monocytes # 1.4 K/mcL (0.0-1.3); Monocytes % 9.4 %; Neutrophils # 11.9 K/mcL (1.6-8.9); Platelet Count 208 K/mcL (140-400); Red Blood Count 4.12 M/mcL (4.19-5.50); Red Cell Distribution Width 13.9 % (11.5-14.5); Segmented Neutrophils % 80.1 %
[2017-10-03 07:57] LABS: BUN/Creatinine Ratio 12 (6-26); Blood Urea Nitrogen 11 mg/dL (8-23); Calcium 8.4 mg/dL (8.6-10.3); Carbon Dioxide 24 mEq/L (23-29); Chloride 110 mEq/L (98-107); Glucose 113 mg/dL (70-105); Osmolality,Calculated 288 (280-300); Sodium 139 mEq/L (136-145); eGFR For African Americans > 60 (> 60); eGFR For Non-African Americans > 60 (> 60)
[2017-10-03] MEDS: Gabapentin 300 MG CAPSULE PO SCH ×3 (09:58→20:25)
[2017-10-03] MEDS: Aspirin Enteric Coated 325 MG Tablet PO SCH (09:58)
[2017-10-03] MEDS: Levofloxacin 750 MG/150 ML 750 MG/150 ML BAG IVPB SCH (10:01)
--- NOTE | 2017-10-03 14:42 | General Surgery Progress Note ---
Date of Encounter: 10/03/17 Time of Encounter: 11:00 - Assessment and Plan (1) Mass of colon Current Visit: Yes Status: Acute POD #4 robotic-assisted right hemicolectomy with Dr. Birmingham Pathology pending continue patient on clear liquids Check acute abdominal series- abdominal distention continue IVF Supportive care and pain control Ambulate hallways 3 times a day with assistance Incentive spirometer every 1 hour while awake PPI therapy daily Resume home medication regimen Repeat a.m. labs- CBC, BMP (2) Ileus, postoperative Current Visit: Yes Status: Acute Suspect ileus continue the patient on clear liquids Check acute abdominal series- abdominal distention continue IVF (3) Hypertension Current Visit: No Status: Chronic Normotensive on my exam. Resume home medication regimen Qualifiers: Hypertension type: unspecified Qualified Code(s): I10 - Essential (primary ) hypertension (4) CAD (coronary artery disease) Current Visit: No Status: Chronic Qualifiers: Coronary Disease-Associated Artery/Lesion type: unspecified vessel or lesion type [place] vs. transplanted heart: [place] heart Associated angina: angina presence unspecified Qualified Code(s): I25.10 - Atherosclerotic heart disease of [place] coronary artery without angina pectoris (5) Hyperlipemia Current Visit: No Status: Chronic Continue home medication regimen Qualifiers: Hyperlipidemia type: unspecified Qualified Code(s): E78.5 - Hyperlipidemia , unspecified (6) DVT prophylaxis Current Visit: Yes Status: Acute Heparin 5000 units subcutaneous twice daily for DVT prophylaxis EPCDs to bilateral lower extremities for DVT prophylaxis Ambulate hallways 3 times a day with assistance Subjective Patient reports: no new complaints, feels better, still having pain ( generalized abdominal discomfort and distention. He admits he feel bloated), pain is less, flatus, bowel movement, afebrile Narrative: The patient was seen and evaluated at bedside this morning. Patient was sitting in the chair. The patient was awake, alert, interactive, afebrile, and appears in no acute distress. The patient states that he had 2 good bowel movements today without any blood. He describes the bowel movements as very loose. The patient admits flatus. He states that his appetite has not completely returned but he believes he can tolerate soup today. The patient denies any fever, headaches,vision changes, near syncope, chest pain, shortness of breath, difficulty breathing, blood in his stool, urinary symptoms, nausea, vomiting, and any weaknesses at this time. The patient has no other concerns at this time. Objective Vital Signs - Last 8 Hours Temp Pulse Resp BP Pulse Ox 10/03/17 12:09 97.7 F 78 18 96/62 96 10/03/17 07:09 99.2 F 104 18 103/70 92 Intake and Output 10/02/17 10/03/17 10/03/17 23:59 07:59 15:59 Intake Total 160 / 160 1100 / 1100 0 / 0 Output Total 650 / 650 300 / 300 0 / 0 Balance -490 / -490 800 / 800 0 / 0 Intake: IV Fluids 100 / 100 1100 / 1100 0.9 % Sodium Chloride 1,000 ML 1000 / 1000 @ 80 mls/hr IVC .[id number] [facility] Rx #:[id number] Flagyl Premix 500 MG/100 ML 500 100 / 100 100 / 100 mg In 100 ml @ 100 mls/hr IVPB Q8H [facility] Rx#:[id number] Oral 60 / 60 0 / 0 0 / 0 Output: Urine 650 / 650 300 / 300 0 / 0 Other: Meal NPO NPO LUNCH # Voids 1 Weight 101.242 kg Blood Glucose* 137 111 120 Patient Weight 10/03/17 23:59 Weight 101.242 kg - General physical appearance well developed, well nourished, no distress - Eyes PERRL, normal ocular movement - ENT normal mucosa - Neck Neck exam: trachea midline - Respiratory normal expansion, normal respiratory effort, other (Decreased breath sounds in the bilateral bases) - Cardiovascular Cardiovascular exam: Present: RRR, no murmurs/rubs/gallops - Abdomen Abdomen: Present: bowel sounds present, soft, distended, tender (Tenderness to palpation. Expected and appropriate post operative tenderness.). Absent: guarding, rebound, rigid Additional Comments: Two fluid filled blisters are present on the left side of the abdomen. Blisters are intact. - Incision Incision: Present: clean and dry, intact. Absent: draining, purulent - Integumentary no rash, other (Two fluid filled blisters present on the left side of the abdomen.) - Neurologic CN 2-12 grossly intact - Labs 10/03/17 06:52 10/03/17 06:52 Diabetes panel 10/03/17 Range/Units 06:52 Sodium 139 (136-145) mEq/L Potassium 4.0 (3.5-5.1) mEq/L Chloride 110 H (98-107) mEq/L Carbon Dioxide 24 (23-29) mEq/L BUN 11 (8-23) mg/dL Creatinine 0.91 (0.70-1.30) mg/dL Glucose 113 H (70-105) mg/dL Calcium 8.4 L (8.6-10.3) mg/dL Calcium panel 10/03/17 Range/Units 06:52 Calcium 8.4 L (8.6-10.3) mg/dL Pituitary panel 10/03/17 Range/Units 06:52 Sodium 139 (136-145) mEq/L Potassium 4.0 (3.5-5.1) mEq/L Chloride 110 H (98-107) mEq/L Carbon Dioxide 24 (23-29) mEq/L BUN 11 (8-23) mg/dL Creatinine 0.91 (0.70-1.30) mg/dL Glucose 113 H (70-105) mg/dL Calcium 8.4 L (8.6-10.3) mg/dL Adrenal panel 10/03/17 Range/Units 06:52 Sodium 139 (136-145) mEq/L Potassium 4.0 (3.5-5.1) mEq/L Chloride 110 H (98-107) mEq/L Carbon Dioxide 24 (23-29) mEq/L BUN 11 (8-23) mg/dL Creatinine 0.91 (0.70-1.30) mg/dL Glucose 113 H (70-105) mg/dL Calcium 8.4 L (8.6-10.3) mg/dL - VTE Documentation of Mechanical Device: Intermittent pneumatic compression device Consult Discharge Plan - Plan Referrals: Papi Birmingham MD [Partnered Physician] - 10/14/17 10:00 am
[2017-10-04] MEDS: MetroNIDAZOLE 500 MG/100 ML 500 MG/100 ML BAG IVPB SCH ×3 (02:49→19:47)
[2017-10-04 05:24] LABS: Basophils # 0.1 K/mcL (0.0-0.2); Basophils % 0.4 %; Eosinophils # 0.7 K/mcL (0.0-0.6); Eosinophils % 5.1 %; Hematocrit 36.8 % (37.5-50.1); Hemoglobin 11.8 g/dL (12.9-16.9); Immature Granulocytes % 1.1 % (0-4); Lymphocytes # 1.1 K/mcL (0.6-4.6); Lymphocytes % 7.6 %; Mean Corpuscular HGB Conc 32.1 g/dL (31.6-35.5); Mean Corpuscular Hemoglobin 31.2 pg (28.0-33.3); Mean Corpuscular Volume 97.4 fL (83.0-100.0); Mean Platelet Volume 10.9 fL (9.4-12.4); Monocytes # 1.4 K/mcL (0.0-1.3); Monocytes % 9.8 %; Neutrophils # 10.8 K/mcL (1.6-8.9); Platelet Count 220 K/mcL (140-400); Red Blood Count 3.78 M/mcL (4.19-5.50); Red Cell Distribution Width 13.9 % (11.5-14.5)
[2017-10-04 06:07] LABS: BUN/Creatinine Ratio 11 (6-26); Blood Urea Nitrogen 12 mg/dL (8-23); Calcium 8.2 mg/dL (8.6-10.3); Carbon Dioxide 24 mEq/L (23-29); Chloride 109 mEq/L (98-107); Glucose 136 mg/dL (70-105); Osmolality,Calculated 288 (280-300); Potassium 4.1 mEq/L (3.5-5.1); Sodium 138 mEq/L (136-145); eGFR For African Americans > 60 (> 60); eGFR For Non-African Americans > 60 (> 60)
[2017-10-04] MEDS: *HR* Heparin 5,000 UNIT/ML VIAL SQ SCH ×2 (06:08→18:16)
[2017-10-04] MEDS: Metoclopramide 10 MG/2 ML VIAL IVP SCH ×2 (06:08→12:36)
[2017-10-04] MEDS: Gabapentin 300 MG CAPSULE PO SCH ×3 (09:22→20:48)
[2017-10-04] MEDS: Aspirin Enteric Coated 325 MG Tablet PO SCH (09:22)
[2017-10-04] MEDS: 0.9 % Sodium Chloride 1,000 ML IVC SCH (09:29)
[2017-10-04] MEDS: Levofloxacin 750 MG/150 ML 750 MG/150 ML BAG IVPB SCH (09:29)
--- NOTE | 2017-10-04 13:14 | General Surgery Progress Note ---
Date of Encounter: 10/04/17 Time of Encounter: 09:30 - Assessment and Plan (1) Mass of colon Current Visit: Yes Status: Acute POD #5 robotic-assisted right hemicolectomy with Dr. Birmingham Pathology pending Order XR acute abdominal series continue patient on clear liquids. Will advance to full liquid diet if XR Acute Abdominal Series is normal continue IVF Supportive care and pain control Ambulate hallways 3 times a day with assistance Incentive spirometer every 1 hour while awake PPI therapy daily Resume home medication regimen Repeat a.m. labs- CBC, BMP (2) Ileus, postoperative Current Visit: Yes Status: Acute Suspect ileus continue the patient on clear liquids Check acute abdominal series- abdominal distention continue IVF (3) Hypertension Current Visit: No Status: Chronic Normotensive on my exam. Resume home medication regimen Qualifiers: Hypertension type: unspecified Qualified Code(s): I10 - Essential (primary ) hypertension (4) CAD (coronary artery disease) Current Visit: No Status: Chronic Qualifiers: Coronary Disease-Associated Artery/Lesion type: unspecified vessel or lesion type [place] vs. transplanted heart: [place] heart Associated angina: angina presence unspecified Qualified Code(s): I25.10 - Atherosclerotic heart disease of [place] coronary artery without angina pectoris (5) Hyperlipemia Current Visit: No Status: Chronic Continue home medication regimen Qualifiers: Hyperlipidemia type: unspecified Qualified Code(s): E78.5 - Hyperlipidemia , unspecified (6) DVT prophylaxis Current Visit: Yes Status: Acute Heparin 5000 units subcutaneous twice daily for DVT prophylaxis EPCDs to bilateral lower extremities for DVT prophylaxis Ambulate hallways 3 times a day with assistance Subjective Patient reports: no new complaints, feels better, pain is less, tolerating liquids well (The patient states he can eat pudding today if we would let him. ) , flatus, bowel movement, blood in stool (Patient admits he saw some blood on the toilet paper during his bowel movement this morning. He denies any pain with bowel movements. ), afebrile Objective Vital Signs - Last 8 Hours Temp Pulse Resp BP Pulse Ox 10/04/17 10:31 98.2 F 72 18 100/66 94 10/04/17 07:41 98.4 F 96 18 108/71 91 Intake and Output 10/03/17 10/04/17 10/04/17 23:59 07:59 15:59 Intake Total 1680 / 1680 1300 / 1300 240 / 240 Output Total 0 / 0 350 / 350 0 / 0 Balance 1680 / 1680 950 / 950 240 / 240 Intake: IV Fluids 1100 / 1100 1100 / 1100 0.9 % Sodium Chloride 1,000 ML 1000 / 1000 1000 / 1000 @ 80 mls/hr IVC .[id number] [facility] Rx #:[id number] Flagyl Premix 500 MG/100 ML 500 100 / 100 100 / 100 mg In 100 ml @ 100 mls/hr IVPB Q8H [facility] Rx#:[id number] Oral 580 / 580 200 / 200 240 / 240 Output: Urine 0 / 0 350 / 350 0 / 0 Other: Meal Dinner Breakfast Weight 101.242 kg Patient Weight 10/04/17 23:59 Weight 101.242 kg - General physical appearance well developed, well nourished, no distress - Eyes PERRL, normal ocular movement - ENT normal mucosa - Neck Neck exam: trachea midline - Respiratory normal expansion, normal respiratory effort, other (Decreased breath sounds in the bilateral bases) - Cardiovascular Cardiovascular exam: Present: RRR, no murmurs/rubs/gallops - Abdomen Abdomen: Present: bowel sounds present (Bowel sounds are present in all four quadrants. However, hypoactive bowel sounds on the right when compared to the left quadrants. ), soft, non tender, distended (Abdomen is distended. Left side of the abdomen appears more distended than the right side. ) Additional Comments: Two fluid filled blisters are present on the left side of the abdomen. Blisters are intact. - Integumentary no rash, no abnormal pigmentation, other (Two fluid filled blisters are present on the left side of the abdomen. Blisters are intact.) - Neurologic CN 2-12 grossly intact - Psychiatric oriented to time, oriented to person, oriented to place - Labs 10/04/17 04:19 10/04/17 04:19 Diabetes panel 10/04/17 Range/Units 04:19 Sodium 138 (136-145) mEq/L Potassium 4.1 (3.5-5.1) mEq/L Chloride 109 H (98-107) mEq/L Carbon Dioxide 24 (23-29) mEq/L BUN 12 (8-23) mg/dL Creatinine 1.07 (0.70-1.30) mg/dL Glucose 136 H (70-105) mg/dL Calcium 8.2 L (8.6-10.3) mg/dL Calcium panel 10/04/17 Range/Units 04:19 Calcium 8.2 L (8.6-10.3) mg/dL Pituitary panel 10/04/17 Range/Units 04:19 Sodium 138 (136-145) mEq/L Potassium 4.1 (3.5-5.1) mEq/L Chloride 109 H (98-107) mEq/L Carbon Dioxide 24 (23-29) mEq/L BUN 12 (8-23) mg/dL Creatinine 1.07 (0.70-1.30) mg/dL Glucose 136 H (70-105) mg/dL Calcium 8.2 L (8.6-10.3) mg/dL Adrenal panel 10/04/17 Range/Units 04:19 Sodium 138 (136-145) mEq/L Potassium 4.1 (3.5-5.1) mEq/L Chloride 109 H (98-107) mEq/L Carbon Dioxide 24 (23-29) mEq/L BUN 12 (8-23) mg/dL Creatinine 1.07 (0.70-1.30) mg/dL Glucose 136 H (70-105) mg/dL Calcium 8.2 L (8.6-10.3) mg/dL - VTE Documentation of Mechanical Device: Intermittent pneumatic compression device Consult Discharge Plan - Plan Referrals: Papi Birmingham MD [Partnered Physician] - 10/14/17 10:00 am
[2017-10-04] MEDS ORDERED: Chloraseptic Spray 177 ML BOTTLE MM PRN (17:01)
[2017-10-05] MEDS: 0.9 % Sodium Chloride 1,000 ML IVC SCH (02:07)
[2017-10-05] MEDS: MetroNIDAZOLE 500 MG/100 ML 500 MG/100 ML BAG IVPB SCH ×3 (02:08→18:55)
[2017-10-05] MEDS: OXYCODONE Oral CONC 10 MG/0.5 ML ORAL.SYG SL PRN (02:15)
[2017-10-05] MEDS: *HR* Heparin 5,000 UNIT/ML VIAL SQ SCH ×2 (05:43→19:05)
[2017-10-05 05:47] LABS: Basophils # 0.1 K/mcL (0.0-0.2); Basophils % 0.5 %; Eosinophils # 0.6 K/mcL (0.0-0.6); Hematocrit 34.1 % (37.5-50.1); Hemoglobin 11.1 g/dL (12.9-16.9); Immature Granulocytes % 1.2 % (0-4); Lymphocytes % 7.5 %; Mean Corpuscular HGB Conc 32.6 g/dL (31.6-35.5); Mean Corpuscular Hemoglobin 31.2 pg (28.0-33.3); Mean Corpuscular Volume 95.8 fL (83.0-100.0); Mean Platelet Volume 10.4 fL (9.4-12.4); Monocytes # 1.2 K/mcL (0.0-1.3); Monocytes % 9.4 %; Neutrophils # 9.7 K/mcL (1.6-8.9); Platelet Count 231 K/mcL (140-400); Red Blood Count 3.56 M/mcL (4.19-5.50); Red Cell Distribution Width 13.7 % (11.5-14.5); Segmented Neutrophils % 76.4 %
[2017-10-05 05:56] LABS: BUN/Creatinine Ratio 12 (6-26); Blood Urea Nitrogen 11 mg/dL (8-23); Calcium 8.3 mg/dL (8.6-10.3); Carbon Dioxide 24 mEq/L (23-29); Chloride 111 mEq/L (98-107); Glucose 117 mg/dL (70-105); Osmolality,Calculated 290 (280-300); Potassium 3.7 mEq/L (3.5-5.1); Sodium 140 mEq/L (136-145); eGFR For African Americans > 60 (> 60); eGFR For Non-African Americans > 60 (> 60)
[2017-10-05] MEDS ORDERED: Methylnaltrexone 12 MG/0.6 ML SYRINGE SQ ONE (07:34)
--- NOTE | 2017-10-05 08:11 | General Surgery Progress Note ---
Addendum entered and electronically signed by Trinidad Ruiz CNP 10/05/17 15: 07: Pt has had 2 BMs s/p Rlistor injection but does not endorse flatus and abdomen remains distended and tympanic. Noted third-spacing with sacral and hip edema which could be contributing to ileus. Will treat with albumin followed by francoise at 1700 today. Will resume Reglan. Original Note: <Trinidad Ruiz - Last Filed: 10/05/17 08:28> Date of Encounter: 10/05/17 Time of Encounter: 08:11 - Assessment and Plan (1) Mass of colon Current Visit: Yes Status: Acute Date of procedure: 09/29/17 Pre-op diagnosis: Right colon mass Post-op diagnosis: same Procedure: Robot assisted right hemicolectomy Anesthesia: ESTELAA Surgeon: Papi Birmingham Was there an child nutrition assistant present: Yes Dye Boarding Machine Operator: Radha Ramirez Estimated blood loss (cc): 150 POD #6 as above. Pathology remains pending. Over the weekend, he is noted to have developed further abdominal distention and an NG was placed. He has had aprox 600 ml bilious material output since NG placed. He was nauseated but states this is resolved after having the NG tube placed. He has absent bowel sounds, is distended, tympanic, and firm upon assessment. He denies passing flatus. There is no cellulitis, erythema, or drainage from the surgical sites. Plan: continue NG to low intermittent wall suction while awaiting return of bowel function NPO PICc/TPN while reading return of bowel function for prolonged postoperative ileus Will Place, Kinney catheter as patient is unable to take PO Flomax and previously notable acute urinary retention continue G.I. and DVT prophylaxis continue supportive care and discomfort management out of bed 3 times daily to chair. May clamp NG for 30 minutes at a time to ambulate. Continue aggressive pulmonary toileting. Repeat a.m. labs (2) Leukocytosis Current Visit: Yes Status: Acute WBC improved. Pt with community acquired PNA Continue Levaquin IV 750 mg daily consult respiratory therapy for aggressive pulmonary toileting and scheduled duonebs as patient remains decreased and wheezy. out of bed at least TID ambulate TID IS Qualifiers: Leukocytosis type: unspecified Qualified Code(s): D72.829 - Elevated white blood cell count, unspecified (3) Acute urinary retention Current Visit: Yes Status: Acute Patient with wedge-shaped delayed enhancement in the left peripheral zone of the prostate gland which could be seen in prostatitis versus prostate cancer. He was previously noted acute urinary retention and started on Flomax. Given that he is now NPO and has an NG, I am unable to continue the Flomax. We will insert a Kinney catheter with a repeat urinalysis to be obtained at insertion. He has been on Levaquin which would cover the possible prostatitis. We will continue to monitor. (4) Shortness of breath Current Visit: Yes Status: Acute See assessment and plan above; otherwise will give IV Lasix times 1 dose as patient is currently positive 3 L this admission which may also be contributing to his hypertension. (5) DVT prophylaxis Current Visit: Yes Status: Acute Heparin sub Q BID EP CDs while in bed ambulation (6) CAD (coronary artery disease) Current Visit: No Status: Chronic Last echo in April 2017 revealed normal systolic and diastolic function. Qualifiers: Coronary Disease-Associated Artery/Lesion type: unspecified vessel or lesion type [place] vs. transplanted heart: [place] heart Associated angina: angina presence unspecified Qualified Code(s): I25.10 - Atherosclerotic heart disease of [place] coronary artery without angina pectoris (7) Hypertension Current Visit: Yes Status: Chronic Scheduled metoprolol. PRN hydralazine. Qualifiers: Hypertension type: essential hypertension Qualified Code(s): I10 - Essential (primary) hypertension Subjective Patient reports: still having pain, pain is less, voiding w/o difficulty (after Flomax was started), no flatus, no bowel movement, nausea (relieved by NG tube) , shortness of breath (with activity, improving), afebrile Objective Vital Signs - Last 8 Hours Temp Pulse Resp BP Pulse Ox 10/05/17 07:06 98.4 F 96 15 144/92 93 10/05/17 03:56 98.6 F 101 18 133/81 91 Intake and Output 10/04/17 10/05/17 10/05/17 23:59 07:59 15:59 Intake Total 100 / 100 1000 / 1000 Output Total 250 / 250 600 / 600 Balance -150 / -150 400 / 400 Intake: IV Fluids 100 / 100 1000 / 1000 0.9 % Sodium Chloride 1,000 ML 1000 / 1000 @ 80 mls/hr IVC .[id number] [facility] Rx #:[id number] Flagyl Premix 500 MG/100 ML 500 100 / 100 mg In 100 ml @ 100 mls/hr IVPB Q8H [facility] Rx#:[id number] Oral 0 / 0 Output: Urine 250 / 250 300 / 300 Gastric Tube Lavage Amount 300 / 300 Right Nare 300 / 300 Other: Meal npo Blood Glucose* 113 144 VITAL SIGNS: Reviewed; tachycardic See [facility] GENERAL: In no apparent distress, but appears uncomfortable. HEENT: Normocephalic, atraumatic, pupils are equal and reactive, sclera is icteric; extraocular motions intact, oropharynx is pink and moist, NG noted tight nares; there is no neck adenopathy or JVD noted. CHEST/RESPIRATORY: The thorax is free from signs of trauma. Lung sounds: diminished and with bibasilar crackles, normal respiratory effort CARDIAC: tachycardic and regular rhythm. Normal S1 and S2, without murmurs, gallops, or rubs. VASCULAR: No Edema. 2+ peripheral pulses. ABDOMEN: Distended, firm, tympanic, absent bowel sounds INCISION: Surgical incision is clean, dry, and intact. There are no signs of cellulitis or infection noted. There are multiple areas of noted blisters ( previously where bandaids were located WOUNDS/DRAINS: NG with aprox 600 ml bilious output. MUSCULOSKELETAL: Good range of motion of all major joints. Extremities without clubbing, cyanosis or edema. NEUROLOGIC EXAM: Alert and oriented x 3. Speech normal. Follows commands. PSYCHIATRIC: Mood normal. SKIN: No rash or lesions -blisters as detailed above; slightly icteric skin color. - Labs 10/05/17 05:19 10/05/17 05:19 Diabetes panel 10/05/17 Range/Units 05:19 Sodium 140 (136-145) mEq/L Potassium 3.7 (3.5-5.1) mEq/L Chloride 111 H (98-107) mEq/L Carbon Dioxide 24 (23-29) mEq/L BUN 11 (8-23) mg/dL Creatinine 0.92 (0.70-1.30) mg/dL Glucose 117 H (70-105) mg/dL Calcium 8.3 L (8.6-10.3) mg/dL Calcium panel 10/05/17 Range/Units 05:19 Calcium 8.3 L (8.6-10.3) mg/dL Pituitary panel 10/05/17 Range/Units 05:19 Sodium 140 (136-145) mEq/L Potassium 3.7 (3.5-5.1) mEq/L Chloride 111 H (98-107) mEq/L Carbon Dioxide 24 (23-29) mEq/L BUN 11 (8-23) mg/dL Creatinine 0.92 (0.70-1.30) mg/dL Glucose 117 H (70-105) mg/dL Calcium 8.3 L (8.6-10.3) mg/dL Adrenal panel 10/05/17 Range/Units 05:19 Sodium 140 (136-145) mEq/L Potassium 3.7 (3.5-5.1) mEq/L Chloride 111 H (98-107) mEq/L Carbon Dioxide 24 (23-29) mEq/L BUN 11 (8-23) mg/dL Creatinine 0.92 (0.70-1.30) mg/dL Glucose 117 H (70-105) mg/dL Calcium 8.3 L (8.6-10.3) mg/dL - VTE Documentation of Mechanical Device: Intermittent pneumatic compression device Consult Discharge Plan - Plan Referrals: Papi Birmingham MD [Partnered Physician] - 10/14/17 10:00 am <Papi Birmingham - Last Filed: 10/06/17 07:35> Date of Encounter: 10/05/17 Objective Vital Signs - Last 8 Hours Temp Pulse Resp BP Pulse Ox 10/06/17 04:14 100.7 F H 122 18 124/76 94 10/06/17 02:06 100.3 F H 118 18 121/77 93 10/06/17 00:51 100.5 F H 138 18 130/75 90 10/06/17 00:11 100.3 F H 149 18 102/63 90 Intake and Output 10/05/17 10/05/17 10/06/17 15:59 23:59 07:59 Intake Total 450 / 450 100 / 100 0 / 0 Output Total 325 / 325 0 / 0 1320 / 1320 Balance 125 / 125 100 / 100 -1320 / -1320 Intake: IV Fluids 450 / 450 100 / 100 Ofirmev 1,000 mg/100 ml 1,000 100 / 100 mg In 100 ml @ 400 mls/hr IVPB ONCE ONE Rx#:[id number] Diflucan Premix 200 MG/100 ML 100 / 100 200 mg In 100 ml @ 100 mls/hr IVPB DAILY [facility] Rx#:[id number] Levaquin Premix 750mg/150 mL 150 / 150 750 mg In 150 ml @ 100 mls/hr IVPB DAILY [facility] Rx#:[id number] Flagyl Premix 500 MG/100 ML 500 100 / 100 100 / 100 mg In 100 ml @ 100 mls/hr IVPB Q8H [facility] Rx#:[id number] Oral 0 / 0 0 / 0 Output: Urine 250 / 250 0 / 0 1100 / 1100 Gastric Drainage 75 / 75 220 / 220 Right Nare 75 / 75 Other: Meal NPO NPO Percent of Meal Consumed 0% Stool Size Small Stool Consistency soft # Voids 1 # Bowel Movements 1 Weight 101.242 kg Blood Glucose* 181 164 Patient Weight 10/06/17 23:59 Weight 101.242 kg - Labs 10/06/17 04:00 10/06/17 04:00 Diabetes panel 10/05/17 10/05/17 10/05/17 Range/Units 05:19 08:10 09:11 Sodium (136-145) mEq/L Potassium (3.5-5.1) mEq/L Chloride (98-107) mEq/L Carbon Dioxide (23-29) mEq/L BUN (8-23) mg/dL Creatinine (0.70-1.30) mg/dL Glucose (70-105) mg/dL Hemoglobin A1c 6.1 H ( - 5.6) % Calcium (8.6-10.3) mg/dL AST 17 (13-39) Units/L ALT 12 (7-52) Units/L Alkaline Phosphatase 66 (34-104) Units/L Albumin 2.7 L 3.1 L (3.5-5.7) g/dL Triglycerides (< 150) mg/dL 10/06/17 10/06/17 Range/Units 04:00 04:00 Sodium 139 (136-145) mEq/L Potassium 3.6 (3.5-5.1) mEq/L Chloride 107 (98-107) mEq/L Carbon Dioxide 26 (23-29) mEq/L BUN 14 (8-23) mg/dL Creatinine 1.06 (0.70-1.30) mg/dL Glucose 133 H (70-105) mg/dL Hemoglobin A1c ( - 5.6) % Calcium 8.4 L (8.6-10.3) mg/dL AST (13-39) Units/L ALT (7-52) Units/L Alkaline Phosphatase (34-104) Units/L Albumin (3.5-5.7) g/dL Triglycerides 85 (< 150) mg/dL Calcium panel 10/05/17 10/05/17 10/06/17 Range/Units 08:10 09:11 04:00 Calcium 8.4 L (8.6-10.3) mg/dL Phosphorus 2.8 3.0 (2.7-4.5) mg/dL Albumin 2.7 L 3.1 L (3.5-5.7) g/dL Pituitary panel 10/06/17 Range/Units 04:00 Sodium 139 (136-145) mEq/L Potassium 3.6 (3.5-5.1) mEq/L Chloride 107 (98-107) mEq/L Carbon Dioxide 26 (23-29) mEq/L BUN 14 (8-23) mg/dL Creatinine 1.06 (0.70-1.30) mg/dL Glucose 133 H (70-105) mg/dL Calcium 8.4 L (8.6-10.3) mg/dL Adrenal panel 10/05/17 10/05/17 10/06/17 Range/Units 08:10 09:11 04:00 Sodium 139 (136-145) mEq/L Potassium 3.6 (3.5-5.1) mEq/L Chloride 107 (98-107) mEq/L Carbon Dioxide 26 (23-29) mEq/L BUN 14 (8-23) mg/dL Creatinine 1.06 (0.70-1.30) mg/dL Glucose 133 H (70-105) mg/dL Calcium 8.4 L (8.6-10.3) mg/dL Total Bilirubin 0.7 (0.3-1.0) mg/dL AST 17 (13-39) Units/L ALT 12 (7-52) Units/L Alkaline Phosphatase 66 (34-104) Units/L Albumin 2.7 L 3.1 L (3.5-5.7) g/dL - Attending Attestation I have personally performed a face to face evaluation on this patient. I have reviewed and agree with the care plan. History and Exam by me shows: I reviewed the above assessment and evaluation and agree with the above plan.
[2017-10-05] MEDS ORDERED: Furosemide 20 MG/2 ML VIAL IVP ONE ×2 (08:35→17:00)
[2017-10-05] MEDS ORDERED: Acetaminophen IV 1,000 MG/100 ML INFUS..BTL IVPB ONE (08:37)
[2017-10-05] MEDS ORDERED: Lidocaine -MPF 1% 5 ML AMPUL INFILT ONE (08:39)
[2017-10-05 08:46] LABS: Albumin 2.7 g/dL (3.5-5.7); Magnesium 1.8 mg/dL (1.6-2.6); Phosphorous 2.8 mg/dL (2.7-4.5)
[2017-10-05] MEDS ORDERED: 0.9 % Sodium Chloride 1,000 ML IVC SCH ×2 (08:49→14:48)
[2017-10-05] MEDS ORDERED: Fluconazole 200 MG/100 ML 200 MG/100 ML BAG IVPB SCH (09:00)
[2017-10-05 09:54] LABS: Albumin 3.1 g/dL (3.5-5.7); Bilirubin,Direct 0.3 mg/dL (0.0-0.2); Bilirubin,Indirect 0.4 mg/dL (0.0-1.2); Bilirubin,Total 0.7 mg/dL (0.3-1.0); Globulin 3.1 g/dL (2.4-3.5); Total Protein 6.2 g/dL (6.4-8.9)
[2017-10-05] MEDS: *HR* Metoprolol 5 MG/5 ML VIAL IVP SCH ×3 (10:00→18:56)
[2017-10-05] MEDS ORDERED: *HR* Dextrose 50 % in Water (Syg) 50 ML SYRINGE IVP PRN (10:37)
[2017-10-05] MEDS ORDERED: Dextrose Gel 15 GM PO PRN ×2 (10:37)
[2017-10-05] MEDS ORDERED: D5% in Water 1,000 ML IVC PRN (10:37)
[2017-10-05] MEDS ORDERED: D10% in Water 500 ML IVC PRN (10:57)
[2017-10-05] MEDS: Ipratropium/Albuterol Neb 3 ML IH SCH ×4 (11:32→20:14)
[2017-10-05] MEDS: Levofloxacin 750 MG/150 ML 750 MG/150 ML BAG IVPB SCH (12:12)
[2017-10-05 12:18] LABS: Estimated Average Glucose 128 mg/dl; Hemoglobin A1C 6.1 %
[2017-10-05 12:29] LABS: Bilirubin,Urine Negative (Negative); Blood,Urine Negative (Negative); Clarity,Urine Clear (Clear); Color,Urine Yellow (Yellow); Glucose,Urine (UA) Normal (Normal); Ketones,Urine Negative (Negative); Leukocyte Esterase,Urine Negative (Negative); Nitrite,Urine Negative (Negative); Protein,Urine Negative (Neg-Trace); Specific Gravity,Urine 1.016 (1.010-1.025); Urobilinogen,Urine Normal (Normal)
[2017-10-05] MEDS: Ketorolac 15 MG/ML VIAL IVP SCH ×3 (13:29→23:29)
[2017-10-05] MEDS ORDERED: Albumin 25% 25gram/100mL 25 GM/100 ML IV.SOLN IVPB ONE (16:45)
[2017-10-05] MEDS ORDERED: Clinimix E 5%-15% SOLUTION 2,000 ML with MVI, adult with vitamin K 10 ML IVC SCH (17:00)
[2017-10-05] MEDS: Metoclopramide 10 MG/2 ML VIAL IVP SCH ×2 (18:56→23:30)
[2017-10-05] MEDS ORDERED: *HR* LORazepam 2 MG/ML VIAL IVP ONE (23:10)
[2017-10-05] MEDS: Bisacodyl 10 MG RECTAL SUPPOSITORY RC SCH (23:24)
[2017-10-06] MEDS: Ipratropium/Albuterol Neb 3 ML IH SCH ×7 (00:09→23:38)
[2017-10-06] MEDS: *HR* Metoprolol 5 MG/5 ML VIAL IVP SCH ×4 (01:04→17:48)
[2017-10-06] MEDS ORDERED: Acetaminophen IV 1,000 MG/100 ML INFUS..BTL IVPB ONE (04:31)
[2017-10-06] MEDS ORDERED: *HR* LORazepam 2 MG/ML VIAL IVP ONE (04:34)
[2017-10-06] MEDS: MetroNIDAZOLE 500 MG/100 ML 500 MG/100 ML BAG IVPB SCH ×3 (04:43→17:48)
[2017-10-06 05:07] LABS: Hematocrit 33.8 % (37.5-50.1); Hemoglobin 11.2 g/dL (12.9-16.9); Mean Corpuscular HGB Conc 33.1 g/dL (31.6-35.5); Mean Corpuscular Hemoglobin 31.5 pg (28.0-33.3); Mean Corpuscular Volume 95.2 fL (83.0-100.0); Platelet Count 234 K/mcL (140-400); Red Blood Count 3.55 M/mcL (4.19-5.50); Red Cell Distribution Width 13.6 % (11.5-14.5)
[2017-10-06 05:19] LABS: BUN/Creatinine Ratio 13 (6-26); Blood Urea Nitrogen 14 mg/dL (8-23); Calcium 8.4 mg/dL (8.6-10.3); Carbon Dioxide 26 mEq/L (23-29); Chloride 107 mEq/L (98-107); Glucose 133 mg/dL (70-105); Magnesium 1.8 mg/dL (1.6-2.6); Osmolality,Calculated 290 (280-300); Potassium 3.6 mEq/L (3.5-5.1); Sodium 139 mEq/L (136-145); eGFR For African Americans > 60 (> 60); eGFR For Non-African Americans > 60 (> 60)
[2017-10-06 05:36] LABS: Large Platelets Present (Not Present); Monocytes # 0.3 K/mcL (0.0-1.3); Neutrophils # 6.2 K/mcL (1.6-8.9); Platelet Estimate Normal (Normal); Reactive Lymphocytes Present (Not Present)
[2017-10-06] MEDS: Metoclopramide 10 MG/2 ML VIAL IVP SCH ×3 (06:02→17:46)
[2017-10-06] MEDS: 0.9 % Sodium Chloride 1,000 ML IVC SCH ×4 (07:19→13:35)
[2017-10-06] MEDS: *HR* Heparin 5,000 UNIT/ML VIAL SQ SCH ×2 (08:04→17:48)
--- NOTE | 2017-10-06 08:29 | General Surgery Progress Note ---
<Trinidad Ruiz - Last Filed: 10/06/17 08:26> Date of Encounter: 10/06/17 Time of Encounter: 08:00 - Assessment and Plan (1) Sepsis Current Visit: Yes Status: Acute Etiology unclear at this time. Lactic acid, repeat blood cultures, blood cultures from the picc, imaging of the chest and abdomen ordered. Further recommendations pending. Noted urine output of 1650 mL over the last 36 hours;however given his drop in systolic blood pressure, fever, and tachycardia, will fluid resuscitate with 2 L normal saline over 4 hours and insert Kinney for accurate I&O. Qualifiers: Sepsis type: sepsis due to unspecified organism Qualified Code(s): A41.9 - Sepsis, unspecified organism (2) Mass of colon Current Visit: Yes Status: Acute Date of procedure: 09/29/17 Pre-op diagnosis: Right colon mass Post-op diagnosis: same Procedure: Robot assisted right hemicolectomy Anesthesia: GETA Surgeon: Papi Birmingham Was there an acquisitions assistant present: Yes Family Medicine Resident: Radha Ramirez Estimated blood loss (cc): 150 POD #7 as above. Pathology remains pending. Patient with acute change overnight. Sepsis. See assessment and plan above. his abdominal exam remains unchanged from below. He has absent bowel sounds, is distended, tympanic, and firm upon assessment. He denies passing flatus. There is no cellulitis, erythema, or drainage from the surgical sites. Plan: continue NG to low intermittent wall suction while awaiting return of bowel function NPO PICc/TPN while reading return of bowel function for prolonged postoperative ileus Will again recommend Kinney catheter given that patient is unable to take Flomax and with new findings of sepsis. Notably patient refused Kinney yesterday. continue G.I. and DVT prophylaxis continue supportive care and discomfort management out of bed 3 times daily to chair. May clamp NG for 30 minutes at a time to ambulate. Continue aggressive pulmonary toileting. Repeat a.m. labs (3) Leukocytosis Current Visit: Yes Status: Acute WBC normal. But with 20 bands. And plan above for further details. Continue Levaquin IV 750 mg daily Continue Flagyl IV daily Continue miconazole daily Continue respiratory therapy for aggressive pulmonary toileting and scheduled duonebs as patient remains decreased and wheezy. out of bed at least TID ambulate TID IS Qualifiers: Leukocytosis type: unspecified Qualified Code(s): D72.829 - Elevated white blood cell count, unspecified (4) Acute urinary retention Current Visit: Yes Status: Acute Patient with wedge-shaped delayed enhancement in the left peripheral zone of the prostate gland which could be seen in prostatitis versus prostate cancer. He was previously noted acute urinary retention and started on Flomax. Given that he is now NPO and has an NG, I am unable to continue the Flomax. We will insert a Kinney catheter with a repeat urinalysis to be obtained at insertion. He has been on Levaquin which would cover the possible prostatitis. We will continue to monitor. (5) Shortness of breath Current Visit: Yes Status: Acute See assessment and plan above; (6) DVT prophylaxis Current Visit: Yes Status: Acute Heparin sub Q BID EP CDs while in bed ambulation (7) CAD (coronary artery disease) Current Visit: No Status: Chronic Last echo in April 2017 revealed normal systolic and diastolic function. Qualifiers: Coronary Disease-Associated Artery/Lesion type: unspecified vessel or lesion type [place] vs. transplanted heart: [place] heart Associated angina: angina presence unspecified Qualified Code(s): I25.10 - Atherosclerotic heart disease of [place] coronary artery without angina pectoris (8) Hypertension Current Visit: Yes Status: Chronic Scheduled metoprolol. PRN hydralazine. Qualifiers: Hypertension type: essential hypertension Qualified Code(s): I10 - Essential (primary) hypertension Subjective Narrative: Pt states, "I lost my mind last night. I was confused, angry, and my stomach hurt!" He reported increased abdominal discomfort in the "left side." He stated last night when he fell confused that he also felt as though he is having a more difficult time breathing. He is able to recall the events of feeling confused in the statements that he made and further states this happens sometimes if I get a fever. Presently, he states increased left abdominal discomfort that feels different than what he had had before surgery or immediately after surgery. He denies nausea. He reports shortness of breath with activity. He denies headache, dizziness, chest pain, burning or difficulty with urination, black, bloody, or tarry stool. Flatus. Objective Vital Signs - Last 8 Hours Temp Pulse Resp BP Pulse Ox 10/06/17 08:20 100.6 F H 10/06/17 07:34 16 98 10/06/17 07:33 101.2 F H 98 16 115/69 97 10/06/17 04:14 100.7 F H 122 18 124/76 94 10/06/17 02:06 100.3 F H 118 18 121/77 93 10/06/17 00:51 100.5 F H 138 18 130/75 90 Intake and Output 10/05/17 10/06/17 10/06/17 23:59 07:59 15:59 Intake Total 100 / 100 0 / 0 Output Total 0 / 0 1320 / 1320 Balance 100 / 100 -1320 / -1320 Intake: IV Fluids 100 / 100 Flagyl Premix 500 MG/100 ML 500 100 / 100 mg In 100 ml @ 100 mls/hr IVPB Q8H [facility] Rx#:[id number] Oral 0 / 0 0 / 0 Output: Urine 0 / 0 1100 / 1100 Gastric Drainage 220 / 220 Other: Meal NPO Percent of Meal Consumed 0% Weight 101.242 kg 99.507 kg Blood Glucose* 181 164 Patient Weight 10/06/17 23:59 Weight 99.507 kg VITAL SIGNS: Reviewed; tachycardic, greater than 40 mmHg drop in systolic blood pressure but is normotensive,. Standing scale weight 99.507 kg (actual weight loss is unclear as weights had not been recorded [facility] GENERAL: In no apparent distress. HEENT: Normocephalic, atraumatic, pupils are equal and reactive, extraocular motions intact, oropharynx is pink and moist, there is no neck adenopathy or JVD noted. CHEST/RESPIRATORY: The thorax is free from signs of trauma. Lung sounds: decreased in the bilateral bases but more decreased on the left. Prominent right basilar crackles noted. CARDIAC: tachycardic rate; regular rhythm. Normal S1 and S2, without murmurs, gallops, or rubs. VASCULAR: 2+ pedal pulses, 1+ pedal edema, 1+ sacral edema. ABDOMEN: firm, distended, absent bowel sounds, tympanic, left upper and lower quadrant discomfort with palpation. INCISION: Surgical incision is clean, dry, and intact. There are no signs of cellulitis or infection noted. There is mild reactionary erythema at the Es[place] sites only. There is healing blisters on the abdomen that were reactionary to the Band-Aids previously on the abdomen. WOUNDS/DRAINS: NG to the right nares noted with 375 MLs bilious material out in 24 hours MUSCULOSKELETAL: Good range of motion of all major joints. Extremities without clubbing, cyanosis or edema. NEUROLOGIC EXAM: Alert and oriented x 3. Speech normal. Follows commands. PSYCHIATRIC: Mood normal. SKIN: No rash or lesions. - Labs 10/06/17 04:00 10/06/17 04:00 Diabetes panel 10/05/17 10/05/17 10/05/17 Range/Units 05:19 08:10 09:11 Sodium (136-145) mEq/L Potassium (3.5-5.1) mEq/L Chloride (98-107) mEq/L Carbon Dioxide (23-29) mEq/L BUN (8-23) mg/dL Creatinine (0.70-1.30) mg/dL Glucose (70-105) mg/dL Hemoglobin A1c 6.1 H ( - 5.6) % Calcium (8.6-10.3) mg/dL AST 17 (13-39) Units/L ALT 12 (7-52) Units/L Alkaline Phosphatase 66 (34-104) Units/L Albumin 2.7 L 3.1 L (3.5-5.7) g/dL Triglycerides (< 150) mg/dL 10/06/17 10/06/17 Range/Units 04:00 04:00 Sodium 139 (136-145) mEq/L Potassium 3.6 (3.5-5.1) mEq/L Chloride 107 (98-107) mEq/L Carbon Dioxide 26 (23-29) mEq/L BUN 14 (8-23) mg/dL Creatinine 1.06 (0.70-1.30) mg/dL Glucose 133 H (70-105) mg/dL Hemoglobin A1c ( - 5.6) % Calcium 8.4 L (8.6-10.3) mg/dL AST (13-39) Units/L ALT (7-52) Units/L Alkaline Phosphatase (34-104) Units/L Albumin (3.5-5.7) g/dL Triglycerides 85 (< 150) mg/dL Calcium panel 10/05/17 10/05/17 10/06/17 Range/Units 08:10 09:11 04:00 Calcium 8.4 L (8.6-10.3) mg/dL Phosphorus 2.8 3.0 (2.7-4.5) mg/dL Albumin 2.7 L 3.1 L (3.5-5.7) g/dL Pituitary panel 10/06/17 Range/Units 04:00 Sodium 139 (136-145) mEq/L Potassium 3.6 (3.5-5.1) mEq/L Chloride 107 (98-107) mEq/L Carbon Dioxide 26 (23-29) mEq/L BUN 14 (8-23) mg/dL Creatinine 1.06 (0.70-1.30) mg/dL Glucose 133 H (70-105) mg/dL Calcium 8.4 L (8.6-10.3) mg/dL Adrenal panel 10/05/17 10/05/17 10/06/17 Range/Units 08:10 09:11 04:00 Sodium 139 (136-145) mEq/L Potassium 3.6 (3.5-5.1) mEq/L Chloride 107 (98-107) mEq/L Carbon Dioxide 26 (23-29) mEq/L BUN 14 (8-23) mg/dL Creatinine 1.06 (0.70-1.30) mg/dL Glucose 133 H (70-105) mg/dL Calcium 8.4 L (8.6-10.3) mg/dL Total Bilirubin 0.7 (0.3-1.0) mg/dL AST 17 (13-39) Units/L ALT 12 (7-52) Units/L Alkaline Phosphatase 66 (34-104) Units/L Albumin 2.7 L 3.1 L (3.5-5.7) g/dL - VTE Documentation of Mechanical Device: Intermittent pneumatic compression device Consult Discharge Plan - Plan Referrals: Papi Birmingham MD [Partnered Physician] - 10/14/17 10:00 am <Papi Birmingham - Last Filed: 10/06/17 14:01> Date of Encounter: 10/06/17 Objective Vital Signs - Last 8 Hours Temp Pulse Resp BP Pulse Ox 10/06/17 11:16 97.9 F 90 18 127/76 93 10/06/17 11:08 16 98 10/06/17 08:47 98 10/06/17 08:20 100.6 F H 10/06/17 07:34 16 98 10/06/17 07:33 101.2 F H 98 16 115/69 97 Intake and Output 10/05/17 10/06/17 10/06/17 23:59 07:59 15:59 Intake Total 100 / 100 100 / 100 1100 / 1100 Output Total 0 / 0 1320 / 1320 Balance 100 / 100 -1220 / -1220 1100 / 1100 Intake: IV Fluids 100 / 100 100 / 100 1100 / 1100 0.9 % Sodium Chloride 1,000 ML 1000 / 1000 @ 500 mls/hr IVC .Q2H [facility] Rx#: [id number] Ofirmev 1,000 mg/100 ml 1,000 100 / 100 mg In 100 ml @ 400 mls/hr IVPB ONCE ONE Rx#:[id number] Flagyl Premix 500 MG/100 ML 500 100 / 100 100 / 100 mg In 100 ml @ 100 mls/hr IVPB Q8H [facility] Rx#:[id number] Oral 0 / 0 0 / 0 0 / 0 Output: Urine 0 / 0 1100 / 1100 Gastric Drainage 220 / 220 Other: Meal NPO Breakfast Percent of Meal Consumed 0% 0% Weight 101.242 kg 99.507 kg Blood Glucose* 181 164 146 Patient Weight 10/06/17 23:59 Weight 99.507 kg - Labs 10/06/17 04:00 10/06/17 04:00 Diabetes panel 10/06/17 10/06/17 Range/Units 04:00 04:00 Sodium 139 (136-145) mEq/L Potassium 3.6 (3.5-5.1) mEq/L Chloride 107 (98-107) mEq/L Carbon Dioxide 26 (23-29) mEq/L BUN 14 (8-23) mg/dL Creatinine 1.06 (0.70-1.30) mg/dL Glucose 133 H (70-105) mg/dL Calcium 8.4 L (8.6-10.3) mg/dL Triglycerides 85 (< 150) mg/dL Calcium panel 10/06/17 Range/Units 04:00 Calcium 8.4 L (8.6-10.3) mg/dL Phosphorus 3.0 (2.7-4.5) mg/dL Pituitary panel 10/06/17 Range/Units 04:00 Sodium 139 (136-145) mEq/L Potassium 3.6 (3.5-5.1) mEq/L Chloride 107 (98-107) mEq/L Carbon Dioxide 26 (23-29) mEq/L BUN 14 (8-23) mg/dL Creatinine 1.06 (0.70-1.30) mg/dL Glucose 133 H (70-105) mg/dL Calcium 8.4 L (8.6-10.3) mg/dL Adrenal panel 10/06/17 Range/Units 04:00 Sodium 139 (136-145) mEq/L Potassium 3.6 (3.5-5.1) mEq/L Chloride 107 (98-107) mEq/L Carbon Dioxide 26 (23-29) mEq/L BUN 14 (8-23) mg/dL Creatinine 1.06 (0.70-1.30) mg/dL Glucose 133 H (70-105) mg/dL Calcium 8.4 L (8.6-10.3) mg/dL - Attending Attestation I have personally performed a face to face evaluation on this patient. I have reviewed and agree with the care plan. History and Exam by me shows: I personally reviewed the CT scan images and report that were ordered and performed today. Also reviewed the above assessment and evaluation. CT scan report shows no evidence of fluid extravasation of contrast. There is no free air or free fluid seen within the abdomen. Signs of an ileus are still present with possible increase in consolidation in the right lower lobe consistent with pneumonia. Currently on IV antibiotics and antifungal. Blood cultures pending. Continue with NG tube decompression and serial abdominal examinations (the patient states that he is not having much abdominal pain and did have some dry heaves but currently is not having any nausea or vomiting). Will follow CBC (white count decreased to normal but he did have increased bands which will follow). Follow vital signs particular the temperature curve over the next 24- 48 hours.
[2017-10-06] MEDS: Levofloxacin 750 MG/150 ML 750 MG/150 ML BAG IVPB SCH (08:37)
[2017-10-06] MEDS: Fluconazole 100 MG/50 ML 100 MG/50 ML BAG IVPB SCH (10:10)
[2017-10-06] MEDS: Acetaminophen IV 1,000 MG/100 ML INFUS..BTL IVPB SCH ×3 (10:29→22:39)
[2017-10-06] MEDS ORDERED: Clinimix E 5%-15% SOLUTION 2,000 ML with MVI, adult with vitamin K 10 ML IVC SCH (17:00)
[2017-10-06] MEDS: Bisacodyl 10 MG RECTAL SUPPOSITORY RC SCH (21:58)
[2017-10-07] MEDS: *HR* Metoprolol 5 MG/5 ML VIAL IVP SCH ×5 (00:04→23:50)
[2017-10-07] MEDS: Metoclopramide 10 MG/2 ML VIAL IVP SCH ×5 (00:04→23:50)
[2017-10-07] MEDS: MetroNIDAZOLE 500 MG/100 ML 500 MG/100 ML BAG IVPB SCH ×3 (03:31→18:50)
[2017-10-07] MEDS: Acetaminophen IV 1,000 MG/100 ML INFUS..BTL IVPB SCH ×4 (03:32→22:12)
[2017-10-07] MEDS: Ipratropium/Albuterol Neb 3 ML IH SCH ×5 (04:24→19:56)
[2017-10-07 04:47] LABS: Basophils % 0.4 %; Eosinophils # 0.4 K/mcL (0.0-0.6); Eosinophils % 5.3 %; Hematocrit 30.7 % (37.5-50.1); Hemoglobin 10.2 g/dL (12.9-16.9); Immature Granulocytes % 1.2 % (0-4); Lymphocytes # 0.9 K/mcL (0.6-4.6); Lymphocytes % 10.7 %; Mean Corpuscular HGB Conc 33.2 g/dL (31.6-35.5); Mean Corpuscular Hemoglobin 31.5 pg (28.0-33.3); Mean Corpuscular Volume 94.8 fL (83.0-100.0); Mean Platelet Volume 10.3 fL (9.4-12.4); Monocytes % 12.3 %; Neutrophils # 5.7 K/mcL (1.6-8.9); Platelet Count 216 K/mcL (140-400); Red Blood Count 3.24 M/mcL (4.19-5.50); Red Cell Distribution Width 13.7 % (11.5-14.5); Segmented Neutrophils % 70.1 %
[2017-10-07 05:12] LABS: BUN/Creatinine Ratio 12 (6-26); Blood Urea Nitrogen 10 mg/dL (8-23); Burr Cells 1+ (Not Present); Calcium 7.8 mg/dL (8.6-10.3); Carbon Dioxide 26 mEq/L (23-29); Chloride 109 mEq/L (98-107); Glucose 128 mg/dL (70-105); Magnesium 1.9 mg/dL (1.6-2.6); Osmolality,Calculated 291 (280-300); Phosphorous 2.7 mg/dL (2.7-4.5); Poikilocytosis 1+ (Not Present); Sodium 140 mEq/L (136-145); eGFR For African Americans > 60 (> 60); eGFR For Non-African Americans > 60 (> 60)
[2017-10-07 05:13] LABS: Platelet Estimate Normal (Normal); Spherocytes 1+ (Not Present)
[2017-10-07] MEDS: *HR* Heparin 5,000 UNIT/ML VIAL SQ SCH ×2 (05:13→18:46)
--- NOTE | 2017-10-07 06:19 | Electrocardiograph Report ---
[place] [id number] Test Date: 2017-10-05 Pat Name: Vijay Zamora Department: 115 Room: 3A Gender: M School Childcare Attendant: : 1945 Requested By: Trinidad Ruiz Order Number: [id number] Reading MD: Sheldon Blevins MD Measurements Intervals [place] Rate: 109 P: 90 IA: 167 QRS: 9 QRSD: 90 T: 29 QT: 311 QTc: 375 Interpretive Statements SINUS TACHYCARDIA LOW QRS VOLTAGE IN PRECORDIAL LEADS Electronically Signed On 10-07-2017 6:17:45 EDT by Sheldon Blevins MD
[2017-10-07] MEDS ORDERED: Potassium Chloride 20 MEQ, Lidocaine 1% 2 ML in D5% in Water 250 ML IVPB ONE (06:42)
[2017-10-07] MEDS: Levofloxacin 750 MG/150 ML 750 MG/150 ML BAG IVPB SCH (08:19)
--- NOTE | 2017-10-07 10:52 | General Surgery Progress Note ---
<[facility]. MaryJalyn Maritza - Last Filed: 10/07/17 10:50> Date of Encounter: 10/07/17 Time of Encounter: 10:30 - Assessment and Plan (1) Mass of colon Current Visit: Yes Status: Acute POD #8 robotic-assisted right hemicolectomy with Dr. 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 Polyp maximum size: 9.0 cm. Benign pericolic lymph nodes (12); negative for metastatic tumor. Resection margins are free of neoplasm. Patient NPO while awaiting return of bowel function Place NG tube to gravity today (agrawal bag) Continue TPN at goal rate Supportive care and pain control Ambulate hallways 3 times a day with assistance Incentive spirometer every 1 hour while awake PPI therapy daily Repeat a.m. labs- CBC, BMP (2) Hypertension Current Visit: Yes Status: Chronic Normotensive at this time Continue current regimen Qualifiers: Hypertension type: essential hypertension Qualified Code(s): I10 - Essential (primary) hypertension (3) CAD (coronary artery disease) Current Visit: No Status: Chronic Qualifiers: Coronary Disease-Associated Artery/Lesion type: unspecified vessel or lesion type [place] vs. transplanted heart: [place] heart Associated angina: angina presence unspecified Qualified Code(s): I25.10 - Atherosclerotic heart disease of [place] coronary artery without angina pectoris (4) Hyperlipemia Current Visit: No Status: Chronic Qualifiers: Hyperlipidemia type: unspecified Qualified Code(s): E78.5 - Hyperlipidemia , unspecified (5) Ileus, postoperative Current Visit: Yes Status: Acute NPO while awaiting return of bowel function NG tube to gravity today (agrawal bag) Continue TPN at goal rate Continue reglan every 6 hours (6) Urinary hesitancy Current Visit: Yes Status: Acute Continue agrawal catheter to SD Resume flomax with return of bowel function (7) Hypokalemia Current Visit: Yes Status: Acute Replace potassium Repeat am BMP (8) DVT prophylaxis Current Visit: Yes Status: Acute Heparin 5000 units subcutaneous twice daily for DVT prophylaxis Ambulate hallways 3 times a day with assistance EPCDs to bilateral lower extremities for DVT prophylaxis Subjective Patient reports: no new complaints, feels better, flatus, bowel movement (X 2 this morning), afebrile Objective Vital Signs - Last 8 Hours Temp Pulse Resp BP Pulse Ox 10/07/17 08:25 98.1 F 83 17 128/75 96 10/07/17 07:27 16 93 10/07/17 04:24 16 93 10/07/17 03:28 98.7 F 90 15 146/77 96 Intake and Output 10/06/17 10/07/17 10/07/17 23:59 07:59 15:59 Intake Total 200 / 200 450 / 450 412 / 412 Output Total 1500 / 1500 550 / 550 475 / 475 Balance -1300 / -1300 -100 / -100 -63 / -63 Intake: IV Fluids 200 / 200 450 / 450 412 / 412 Ofirmev 1,000 mg/100 ml 1,000 100 / 100 100 / 100 mg In 100 ml @ 400 mls/hr IVPB Q6H [facility] Rx#:[id number] Intralipid 20% 250 ML @ 21 mls/ 250 / 250 hr IVPB DAILY@1700 [facility] Rx#: [id number] Levaquin Premix 750mg/150 mL 150 / 150 750 mg In 150 ml @ 100 mls/hr IVPB DAILY [facility] Rx#:[id number] Flagyl Premix 500 MG/100 ML 500 100 / 100 100 / 100 mg In 100 ml @ 100 mls/hr IVPB Q8H [facility] Rx#:[id number] KCl 20 MEQ Xylocaine 2 ML In 262 / 262 Dextrose 5% 250 ML @ 131 mls/hr IVPB ONCE ONE Rx#:[id number] Oral 0 / 0 0 / 0 0 / 0 Output: Catheter 950 / 950 350 / 350 475 / 475 Gastric Drainage 550 / 550 200 / 200 Other: Meal NPO Stool Size Small Stool Consistency loose Weight 99.5 kg Blood Glucose* 177 153 157 Patient Weight 10/07/17 23:59 Weight 99.5 kg - General physical appearance well developed, no distress - ENT normal mucosa, atraumatic, normocephalic - Neck Neck exam: trachea midline - Respiratory normal respiratory effort, clear to auscultation - Cardiovascular Cardiovascular exam: Present: RRR - Abdomen Abdomen: Present: bowel sounds present (minimal), soft, non tender, wound (NG tube to LIWS with 300ml of drainage noted since midnight) - Incision Incision: Present: clean and dry, intact - Genitourinary other (agrawal catheter to SD with clear, yellow urine noted) - Neurologic CN 2-12 grossly intact - Psychiatric oriented to time, oriented to person, oriented to place, speech is normal, memory intact - Labs 10/07/17 04:00 10/07/17 04:00 Diabetes panel 10/07/17 Range/Units 04:00 Sodium 140 (136-145) mEq/L Potassium 3.0 L (3.5-5.1) mEq/L Chloride 109 H (98-107) mEq/L Carbon Dioxide 26 (23-29) mEq/L BUN 10 (8-23) mg/dL Creatinine 0.84 (0.70-1.30) mg/dL Glucose 128 H (70-105) mg/dL Calcium 7.8 L (8.6-10.3) mg/dL Calcium panel 10/07/17 Range/Units 04:00 Calcium 7.8 L (8.6-10.3) mg/dL Phosphorus 2.7 (2.7-4.5) mg/dL Pituitary panel 10/07/17 Range/Units 04:00 Sodium 140 (136-145) mEq/L Potassium 3.0 L (3.5-5.1) mEq/L Chloride 109 H (98-107) mEq/L Carbon Dioxide 26 (23-29) mEq/L BUN 10 (8-23) mg/dL Creatinine 0.84 (0.70-1.30) mg/dL Glucose 128 H (70-105) mg/dL Calcium 7.8 L (8.6-10.3) mg/dL Adrenal panel 10/07/17 Range/Units 04:00 Sodium 140 (136-145) mEq/L Potassium 3.0 L (3.5-5.1) mEq/L Chloride 109 H (98-107) mEq/L Carbon Dioxide 26 (23-29) mEq/L BUN 10 (8-23) mg/dL Creatinine 0.84 (0.70-1.30) mg/dL Glucose 128 H (70-105) mg/dL Calcium 7.8 L (8.6-10.3) mg/dL - VTE Documentation of Mechanical Device: Intermittent pneumatic compression device Consult Discharge Plan - Plan Referrals: Papi Birmingham MD [Partnered Physician] - 10/14/17 10:00 am - Attending Attestation For this encounter, I have reviewed the CAREER SERVICES ASSISTANT or PA documentation, treatment plan, and medical decision making; and I have had face to face time with this patient. <Papi Birmingham M - Last Filed: 10/08/17 06:58> Date of Encounter: 10/07/17 Objective Vital Signs - Last 8 Hours Temp Pulse Resp BP Pulse Ox 10/08/17 05:00 98.0 F 89 15 152/78 93 10/08/17 00:16 18 94 10/07/17 23:43 98.4 F 93 16 162/88 93 Intake and Output 10/07/17 10/07/17 10/08/17 15:59 23:59 07:59 Intake Total 562 / 562 2792 / 2792 200 / 200 Output Total 1075 / 1075 1200 / 1200 2300 / 2300 Balance -513 / -513 1592 / 1592 -2100 / -2100 Intake: IV Fluids 562 / 562 2732 / 2732 200 / 200 Clinimix E 5%-15% SOLUTION 2009 000 ML @ 83.3 mls/hr IVC .Q24H [facility] with [facility] Adult 10 ml Rx# :[id number] Ofirmev 1,000 mg/100 ml 1,000 100 / 100 100 / 100 mg In 100 ml @ 400 mls/hr IVPB Q6H [facility] Rx#:[id number] Diflucan 100 MG/50 ML 100 mg In 50 / 50 50 ml @ 50 mls/hr IVPB DAILY [facility] Rx#:[id number] Levaquin Premix 750mg/150 mL 150 / 150 750 mg In 150 ml @ 100 mls/hr IVPB DAILY [facility] Rx#:[id number] Flagyl Premix 500 MG/100 ML 500 100 / 100 100 / 100 100 / 100 mg In 100 ml @ 100 mls/hr IVPB Q8H [facility] Rx#:[id number] KCl 20 MEQ Xylocaine 2 ML In 262 / 262 Dextrose 5% 250 ML @ 131 mls/hr IVPB ONCE ONE Rx#:[id number] KCl 40 MEQ Xylocaine 2 ML In 522 / 522 Dextrose 5% 500 ML @ 130.5 mls/ hr IVPB ONCE ONE Rx#:[id number] Oral 0 / 0 60 / 60 0 / 0 Output: Urine 500 / 500 Catheter 1075 / 1075 700 / 700 2049 / 2049 Gastric Drainage 0 / 0 250 / 250 Other: Meal NPO NPO Percent of Meal Consumed 0% Stool Size Moderate Moderate Stool Consistency loose loose Stool Color Green Brown Green # Bowel Movements 1 1 Blood Glucose* 147 155 152 - Labs 10/08/17 03:05 10/08/17 03:05 Diabetes panel 10/08/17 Range/Units 03:05 Sodium 138 (136-145) mEq/L Potassium 3.3 L (3.5-5.1) mEq/L Chloride 108 H (98-107) mEq/L Carbon Dioxide 25 (23-29) mEq/L BUN 9 (8-23) mg/dL Creatinine 0.75 (0.70-1.30) mg/dL Glucose 159 H (70-105) mg/dL Calcium 8.5 L (8.6-10.3) mg/dL Calcium panel 10/08/17 Range/Units 03:05 Calcium 8.5 L (8.6-10.3) mg/dL Phosphorus 2.3 L (2.7-4.5) mg/dL Pituitary panel 10/08/17 Range/Units 03:05 Sodium 138 (136-145) mEq/L Potassium 3.3 L (3.5-5.1) mEq/L Chloride 108 H (98-107) mEq/L Carbon Dioxide 25 (23-29) mEq/L BUN 9 (8-23) mg/dL Creatinine 0.75 (0.70-1.30) mg/dL Glucose 159 H (70-105) mg/dL Calcium 8.5 L (8.6-10.3) mg/dL Adrenal panel 10/08/17 Range/Units 03:05 Sodium 138 (136-145) mEq/L Potassium 3.3 L (3.5-5.1) mEq/L Chloride 108 H (98-107) mEq/L Carbon Dioxide 25 (23-29) mEq/L BUN 9 (8-23) mg/dL Creatinine 0.75 (0.70-1.30) mg/dL Glucose 159 H (70-105) mg/dL Calcium 8.5 L (8.6-10.3) mg/dL - Attending Attestation I reviewed the above assessment and evaluation and agree with the above plan. Patient has had 2-3 bowel movements yesterday and had a bowel movement today. Abdomen feels better and appears he may have less distention. Scant bowel sounds. Agree with NG tube to gravity drainage.
[2017-10-07] MEDS ORDERED: Potassium Chloride 40 MEQ, Lidocaine 1% 2 ML in D5% in Water 500 ML IVPB ONE (11:01)
[2017-10-07] MEDS: Fluconazole 100 MG/50 ML 100 MG/50 ML BAG IVPB SCH (12:50)
[2017-10-07] MEDS ORDERED: Clinimix E 5%-15% SOLUTION 2,000 ML with MVI, adult with vitamin K 10 ML IVC SCH (17:00)
[2017-10-07] MEDS: Bisacodyl 10 MG RECTAL SUPPOSITORY RC SCH (20:23)
[2017-10-08] MEDS: Ipratropium/Albuterol Neb 3 ML IH SCH ×7 (00:14→23:26)
[2017-10-08] MEDS: MetroNIDAZOLE 500 MG/100 ML 500 MG/100 ML BAG IVPB SCH ×3 (03:10→19:00)
[2017-10-08] MEDS: Acetaminophen IV 1,000 MG/100 ML INFUS..BTL IVPB SCH ×4 (03:11→20:50)
[2017-10-08 03:18] LABS: Basophils # 0.1 K/mcL (0.0-0.2); Basophils % 0.4 %; Eosinophils # 0.5 K/mcL (0.0-0.6); Eosinophils % 4.1 %; Hematocrit 33.2 % (37.5-50.1); Hemoglobin 11.3 g/dL (12.9-16.9); Immature Granulocytes % 1.6 % (0-4); Lymphocytes # 1.1 K/mcL (0.6-4.6); Lymphocytes % 9.8 %; Mean Corpuscular Hemoglobin 32.2 pg (28.0-33.3); Mean Corpuscular Volume 94.6 fL (83.0-100.0); Mean Platelet Volume 9.9 fL (9.4-12.4); Monocytes % 9.1 %; Neutrophils # 8.6 K/mcL (1.6-8.9); Platelet Count 259 K/mcL (140-400); Red Blood Count 3.51 M/mcL (4.19-5.50); Red Cell Distribution Width 13.6 % (11.5-14.5)
[2017-10-08 03:37] LABS: BUN/Creatinine Ratio 12 (6-26); Blood Urea Nitrogen 9 mg/dL (8-23); Calcium 8.5 mg/dL (8.6-10.3); Carbon Dioxide 25 mEq/L (23-29); Chloride 108 mEq/L (98-107); Glucose 159 mg/dL (70-105); Osmolality,Calculated 288 (280-300); Phosphorous 2.3 mg/dL (2.7-4.5); Potassium 3.3 mEq/L (3.5-5.1); Sodium 138 mEq/L (136-145); eGFR For African Americans > 60 (> 60); eGFR For Non-African Americans > 60 (> 60)
[2017-10-08] MEDS: Metoclopramide 10 MG/2 ML VIAL IVP SCH ×3 (05:41→16:40)
[2017-10-08] MEDS: *HR* Heparin 5,000 UNIT/ML VIAL SQ SCH ×2 (05:42→16:40)
[2017-10-08] MEDS: *HR* Metoprolol 5 MG/5 ML VIAL IVP SCH ×3 (05:42→16:40)
[2017-10-08] MEDS: Fluconazole 100 MG/50 ML 100 MG/50 ML BAG IVPB SCH (09:25)
[2017-10-08] MEDS: Levofloxacin 750 MG/150 ML 750 MG/150 ML BAG IVPB SCH (09:26)
[2017-10-08] MEDS ORDERED: Potassium Chloride 20 MEQ, Lidocaine 1% 2 ML in D5% in Water 250 ML IVPB ONE (10:20)
--- NOTE | 2017-10-08 11:01 | General Surgery Progress Note ---
<Jessica Fernandez-My - Last Filed: 10/08/17 10:59> Date of Encounter: 10/08/17 Time of Encounter: 08:20 - Assessment and Plan (1) Mass of colon Current Visit: Yes Status: Acute POD #9 robotic-assisted right hemicolectomy with Dr. 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 Polyp maximum size: 9.0 cm. Benign pericolic lymph nodes (12); negative for metastatic tumor. Resection margins are free of neoplasm. Patient NPO while awaiting return of bowel function Place NG tube to gravity (agrawal bag) Continue TPN at goal rate Replace electrolytes-potassium was 3.3 and phosphate was 2.3 Supportive care and pain control Ambulate hallways 3 times a day with assistance Incentive spirometer every 1 hour while awake PPI therapy daily Repeat a.m. labs- CBC, BMP (2) Ileus, postoperative Current Visit: Yes Status: Acute NPO while awaiting return of bowel function NG tube to gravity (agrawal bag) Continue TPN at goal rate Continue reglan every 6 hours (3) Hypertension Current Visit: Yes Status: Chronic Normotensive on my exam. Continue current regimen Qualifiers: Hypertension type: essential hypertension Qualified Code(s): I10 - Essential (primary) hypertension (4) CAD (coronary artery disease) Current Visit: No Status: Chronic Qualifiers: Coronary Disease-Associated Artery/Lesion type: unspecified vessel or lesion type [place] vs. transplanted heart: [place] heart Associated angina: angina presence unspecified Qualified Code(s): I25.10 - Atherosclerotic heart disease of [place] coronary artery without angina pectoris (5) Hyperlipemia Current Visit: No Status: Chronic Continue home medication regimen Qualifiers: Hyperlipidemia type: unspecified Qualified Code(s): E78.5 - Hyperlipidemia , unspecified (6) DVT prophylaxis Current Visit: Yes Status: Acute Heparin 5000 units subcutaneous twice daily for DVT prophylaxis EPCDs to bilateral lower extremities for DVT prophylaxis Ambulate hallways 3 times a day with assistance (7) Hypokalemia Current Visit: Yes Status: Acute Potassium 3.3 today. Will replace it. Repeat BMP in the am (8) Urinary hesitancy Current Visit: Yes Status: Acute Continue agrawal catheter to SD Resume flomax with return of bowel function Subjective Patient reports: no new complaints, feels better, flatus, bowel movement ( Patient states he had for good bowel movements last night. He denies any blood in his stool.), afebrile, other (He denies any nausea or vomiting) Objective Vital Signs - Last 8 Hours Temp Pulse Resp BP Pulse Ox 10/08/17 10:48 97.5 F L 72 18 127/74 94 10/08/17 10:30 97.7 F 67 16 126/82 95 10/08/17 07:51 98.0 F 72 14 135/78 94 10/08/17 05:00 98.0 F 89 15 152/78 93 Intake and Output 10/07/17 10/08/17 10/08/17 23:59 07:59 15:59 Intake Total 2792 / 2792 200 / 200 150 / 150 Output Total 1200 / 1200 2675 / 2675 500 / 500 Balance 1592 / 1592 -2475 / -2475 -350 / -350 Intake: IV Fluids 2732 / 2732 200 / 200 150 / 150 Clinimix E 5%-15% SOLUTION 2009 000 ML @ 83.3 mls/hr IVC .Q24H [facility] with M.v.i. Adult 10 ml Rx# :[id number] Ofirmev 1,000 mg/100 ml 1,000 100 / 100 100 / 100 100 / 100 mg In 100 ml @ 400 mls/hr IVPB Q6H [facility] Rx#:[id number] Diflucan 100 MG/50 ML 100 mg In 50 / 50 50 ml @ 50 mls/hr IVPB DAILY [facility] Rx#:[id number] Flagyl Premix 500 MG/100 ML 500 100 / 100 100 / 100 mg In 100 ml @ 100 mls/hr IVPB Q8H [facility] Rx#:[id number] KCl 40 MEQ Xylocaine 2 ML In 522 / 522 Dextrose 5% 500 ML @ 130.5 mls/ hr IVPB ONCE ONE Rx#:[id number] Oral 60 / 60 0 / 0 0 / 0 Output: Urine 500 / 500 Catheter 700 / 700 2275 / 2275 300 / 300 Gastric Drainage 0 / 0 400 / 400 200 / 200 Other: Meal NPO NPO Stool Size Moderate Stool Consistency loose Stool Color Brown Green # Bowel Movements 1 Blood Glucose* 155 144 - General physical appearance well developed, well nourished, no distress, no pain - Eyes PERRL, normal ocular movement - ENT normal mucosa, Other (NG tube in place) - Respiratory normal respiratory effort, clear to auscultation - Cardiovascular Cardiovascular exam: Present: RRR, no murmurs/rubs/gallops - Abdomen Abdomen: Present: bowel sounds present (Minimal bowel sounds present.), soft, non tender, distended (Mildly distended but appears to be improving). Absent: guarding, rebound, rigid - Incision Incision: Present: clean and dry, intact. Absent: draining, purulent - Integumentary no rash - Neurologic CN 2-12 grossly intact - Psychiatric oriented to time, oriented to person, oriented to place, speech is normal - Labs 10/08/17 03:05 10/08/17 03:05 Diabetes panel 10/08/17 Range/Units 03:05 Sodium 138 (136-145) mEq/L Potassium 3.3 L (3.5-5.1) mEq/L Chloride 108 H (98-107) mEq/L Carbon Dioxide 25 (23-29) mEq/L BUN 9 (8-23) mg/dL Creatinine 0.75 (0.70-1.30) mg/dL Glucose 159 H (70-105) mg/dL Calcium 8.5 L (8.6-10.3) mg/dL Calcium panel 10/08/17 Range/Units 03:05 Calcium 8.5 L (8.6-10.3) mg/dL Phosphorus 2.3 L (2.7-4.5) mg/dL Pituitary panel 10/08/17 Range/Units 03:05 Sodium 138 (136-145) mEq/L Potassium 3.3 L (3.5-5.1) mEq/L Chloride 108 H (98-107) mEq/L Carbon Dioxide 25 (23-29) mEq/L BUN 9 (8-23) mg/dL Creatinine 0.75 (0.70-1.30) mg/dL Glucose 159 H (70-105) mg/dL Calcium 8.5 L (8.6-10.3) mg/dL Adrenal panel 10/08/17 Range/Units 03:05 Sodium 138 (136-145) mEq/L Potassium 3.3 L (3.5-5.1) mEq/L Chloride 108 H (98-107) mEq/L Carbon Dioxide 25 (23-29) mEq/L BUN 9 (8-23) mg/dL Creatinine 0.75 (0.70-1.30) mg/dL Glucose 159 H (70-105) mg/dL Calcium 8.5 L (8.6-10.3) mg/dL - VTE Documentation of Mechanical Device: Intermittent pneumatic compression device Consult Discharge Plan - Plan Referrals: Papi Birmingham MD [Partnered Physician] - 10/14/17 10:00 am <Papi Birmingham - Last Filed: 10/09/17 08:29> Date of Encounter: 10/08/17 Objective Vital Signs - Last 8 Hours Temp Pulse Resp BP Pulse Ox 10/09/17 07:00 98.4 F 77 16 114/67 94 10/09/17 06:18 96 127/72 10/09/17 04:24 18 94 10/09/17 03:45 97.8 F 80 16 124/77 94 Intake and Output 10/08/17 10/09/17 10/09/17 23:59 07:59 15:59 Intake Total 200 / 200 300 / 300 Output Total 1100 / 1100 Balance -900 / -900 300 / 300 Intake: IV Fluids 200 / 200 300 / 300 Ofirmev 1,000 mg/100 ml 1,000 100 / 100 200 / 200 mg In 100 ml @ 400 mls/hr IVPB Q6H [facility] Rx#:[id number] Flagyl Premix 500 MG/100 ML 500 100 / 100 100 / 100 mg In 100 ml @ 100 mls/hr IVPB Q8H [facility] Rx#:[id number] Oral 0 / 0 Output: Urine 1100 / 1100 Other: Meal Dinner Percent of Meal Consumed 0% Weight 100.5 kg Blood Glucose* 167 140 Patient Weight 10/09/17 23:59 Weight 100.5 kg - Labs 10/09/17 03:25 10/09/17 03:25 Diabetes panel 10/09/17 Range/Units 03:25 Sodium 139 (136-145) mEq/L Potassium 3.4 L (3.5-5.1) mEq/L Chloride 107 (98-107) mEq/L Carbon Dioxide 25 (23-29) mEq/L BUN 12 (8-23) mg/dL Creatinine 0.75 (0.70-1.30) mg/dL Glucose 145 H (70-105) mg/dL Calcium 8.5 L (8.6-10.3) mg/dL Calcium panel 10/09/17 10/09/17 Range/Units 03:25 03:25 Calcium 8.5 L (8.6-10.3) mg/dL Phosphorus 3.3 (2.7-4.5) mg/dL Pituitary panel 10/09/17 Range/Units 03:25 Sodium 139 (136-145) mEq/L Potassium 3.4 L (3.5-5.1) mEq/L Chloride 107 (98-107) mEq/L Carbon Dioxide 25 (23-29) mEq/L BUN 12 (8-23) mg/dL Creatinine 0.75 (0.70-1.30) mg/dL Glucose 145 H (70-105) mg/dL Calcium 8.5 L (8.6-10.3) mg/dL Adrenal panel 10/09/17 Range/Units 03:25 Sodium 139 (136-145) mEq/L Potassium 3.4 L (3.5-5.1) mEq/L Chloride 107 (98-107) mEq/L Carbon Dioxide 25 (23-29) mEq/L BUN 12 (8-23) mg/dL Creatinine 0.75 (0.70-1.30) mg/dL Glucose 145 H (70-105) mg/dL Calcium 8.5 L (8.6-10.3) mg/dL - Attending Attestation I examined this patient and my medical decision-making was reviewed with the Resident Physician. I agree with the documented findings, disposition and treatment plan as described except to the extent set forth below. I reviewed the above assessment and evaluation. Will clamp NGT. Await continued return of bowel function. Agree with replacement of electrolytes.
[2017-10-08] MEDS ORDERED: Clinimix E 5%-15% SOLUTION 2,000 ML with MVI, adult with vitamin K 10 ML IVC SCH (17:00)
[2017-10-08] MEDS: Gabapentin 300 MG CAPSULE PO SCH (20:18)
[2017-10-09] MEDS: Metoclopramide 10 MG/2 ML VIAL IVP SCH ×4 (00:10→17:02)
[2017-10-09] MEDS: *HR* Metoprolol 5 MG/5 ML VIAL IVP SCH ×4 (00:10→17:02)
[2017-10-09] MEDS: Acetaminophen IV 1,000 MG/100 ML INFUS..BTL IVPB SCH ×4 (03:29→22:44)
[2017-10-09] MEDS: MetroNIDAZOLE 500 MG/100 ML 500 MG/100 ML BAG IVPB SCH ×3 (03:34→21:16)
[2017-10-09 03:57] LABS: Basophils # 0.1 K/mcL (0.0-0.2); Basophils % 0.4 %; Eosinophils # 0.6 K/mcL (0.0-0.6); Eosinophils % 3.6 %; Hematocrit 33.2 % (37.5-50.1); Hemoglobin 11.2 g/dL (12.9-16.9); Lymphocytes % 6.3 %; Mean Corpuscular HGB Conc 33.7 g/dL (31.6-35.5); Mean Corpuscular Hemoglobin 32.1 pg (28.0-33.3); Mean Corpuscular Volume 95.1 fL (83.0-100.0); Mean Platelet Volume 10.2 fL (9.4-12.4); Monocytes # 1.1 K/mcL (0.0-1.3); Monocytes % 6.8 %; Neutrophils # 12.7 K/mcL (1.6-8.9); Nucleated Red Blood Cells 0.1 /100 WBC (0); Platelet Count 275 K/mcL (140-400); Red Blood Count 3.49 M/mcL (4.19-5.50); Red Cell Distribution Width 13.8 % (11.5-14.5); Segmented Neutrophils % 80.9 %
[2017-10-09 04:09] LABS: BUN/Creatinine Ratio 16 (6-26); Blood Urea Nitrogen 12 mg/dL (8-23); Calcium 8.5 mg/dL (8.6-10.3); Carbon Dioxide 25 mEq/L (23-29); Chloride 107 mEq/L (98-107); Glucose 145 mg/dL (70-105); Osmolality,Calculated 290 (280-300); Potassium 3.4 mEq/L (3.5-5.1); Sodium 139 mEq/L (136-145); eGFR For African Americans > 60 (> 60); eGFR For Non-African Americans > 60 (> 60)
[2017-10-09] MEDS: Ipratropium/Albuterol Neb 3 ML IH SCH ×5 (04:24→19:48)
[2017-10-09 05:21] LABS: Magnesium 1.9 mg/dL (1.6-2.6); Phosphorous 3.3 mg/dL (2.7-4.5)
[2017-10-09] MEDS: *HR* Heparin 5,000 UNIT/ML VIAL SQ SCH ×2 (06:13→17:07)
[2017-10-09] MEDS: Fluconazole 100 MG/50 ML 100 MG/50 ML BAG IVPB SCH (10:00)
[2017-10-09] MEDS: Gabapentin 300 MG CAPSULE PO SCH ×3 (10:05→21:16)
[2017-10-09] MEDS: Aspirin Enteric Coated 325 MG Tablet PO SCH (10:05)
--- NOTE | 2017-10-09 10:27 | General Surgery Progress Note ---
<Jessica Fernandez-My - Last Filed: 10/09/17 10:25> Date of Encounter: 10/09/17 Time of Encounter: 08:45 - Assessment and Plan (1) Mass of colon Current Visit: Yes Status: Acute POD #9 robotic-assisted right hemicolectomy with Dr. 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 Polyp maximum size: 9.0 cm. Benign pericolic lymph nodes (12); negative for metastatic tumor. Resection margins are free of neoplasm. Discontinue NG tube Advance to full liquid diet as tolerated. Continue TPN at goal rate Replace electrolytes-potassium was 3.4 Continue antibitoics. Started 750mg Levaquin for pneumonia Supportive care and pain control Ambulate hallways 3 times a day with assistance Incentive spirometer every 1 hour while awake PPI therapy daily Repeat a.m. labs- CBC, BMP (2) Ileus, postoperative Current Visit: Yes Status: Acute Advanced to full liquid diet discontinue the NG tube Continue TPN at goal rate Continue reglan every 6 hours (3) Hypertension Current Visit: Yes Status: Chronic Normotensive on my exam. Continue current regimen Qualifiers: Hypertension type: essential hypertension Qualified Code(s): I10 - Essential (primary) hypertension (4) CAD (coronary artery disease) Current Visit: No Status: Chronic Qualifiers: Coronary Disease-Associated Artery/Lesion type: unspecified vessel or lesion type [place] vs. transplanted heart: [place] heart Associated angina: angina presence unspecified Qualified Code(s): I25.10 - Atherosclerotic heart disease of [place] coronary artery without angina pectoris (5) Hyperlipemia Current Visit: No Status: Chronic Continue home medication regimen Qualifiers: Hyperlipidemia type: unspecified Qualified Code(s): E78.5 - Hyperlipidemia , unspecified (6) DVT prophylaxis Current Visit: Yes Status: Acute Heparin 5000 units subcutaneous twice daily for DVT prophylaxis EPCDs to bilateral lower extremities for DVT prophylaxis Ambulate hallways 3 times a day with assistance (7) Hypokalemia Current Visit: Yes Status: Acute Potassium 3.4 today. Will replace it. Repeat BMP in the am (8) Urinary hesitancy Current Visit: Yes Status: Acute Continue flomax with return of bowel function Subjective Patient reports: feels better (He denies any abdominal pain at this time. The patient states that has only complaint is that his throat is sore from the NG tube.), voiding w/o difficulty, flatus, bowel movement (The patient admits bowel movements. He stated that he had 2 good bowel movements last night. He also admits he had one bowel movement this morning. He denies any blood in stools), afebrile, other (The patient complains that the back of his throat is sore. He admits the NG tube is very uncomfortable. He is frustrated that the NG tube has not been removed yet. He denies any nausea, vomiting, or difficulty with his liquid diet.) Objective Vital Signs - Last 8 Hours Temp Pulse Resp BP Pulse Ox 10/09/17 07:00 98.4 F 77 16 114/67 94 10/09/17 06:18 96 127/72 10/09/17 04:24 18 94 10/09/17 03:45 97.8 F 80 16 124/77 94 Intake and Output 10/08/17 10/09/17 10/09/17 23:59 07:59 15:59 Intake Total 200 / 200 300 / 300 0 / 0 Output Total 1100 / 1100 Balance -900 / -900 300 / 300 0 / 0 Intake: IV Fluids 200 / 200 300 / 300 Ofirmev 1,000 mg/100 ml 1,000 100 / 100 200 / 200 mg In 100 ml @ 400 mls/hr IVPB Q6H [facility] Rx#:[id number] Flagyl Premix 500 MG/100 ML 500 100 / 100 100 / 100 mg In 100 ml @ 100 mls/hr IVPB Q8H [facility] Rx#:[id number] Oral 0 / 0 0 / 0 Output: Urine 1100 / 1100 Other: Meal Dinner Breakfast Percent of Meal Consumed 0% 0% Weight 100.5 kg Blood Glucose* 167 140 Patient Weight 10/09/17 23:59 Weight 100.5 kg - General physical appearance well developed, well nourished, no distress - Eyes PERRL, normal ocular movement - ENT normal mucosa, Other (NG tube in the right nare but not connected to suction) - Neck Neck exam: trachea midline - Respiratory normal expansion, normal respiratory effort, clear to auscultation - Cardiovascular Cardiovascular exam: Present: RRR, no murmurs/rubs/gallops - Abdomen Abdomen: Present: bowel sounds present, soft, non tender, distended (Mildly distended but appears to be improving compared to yesterday's exam.). Absent: guarding, rebound, rigid - Incision Incision: Present: clean and dry, intact. Absent: draining, purulent - Integumentary no rash - Neurologic CN 2-12 grossly intact - Psychiatric oriented to time, oriented to person, oriented to place - Labs 10/09/17 03:25 10/09/17 03:25 Diabetes panel 10/09/17 Range/Units 03:25 Sodium 139 (136-145) mEq/L Potassium 3.4 L (3.5-5.1) mEq/L Chloride 107 (98-107) mEq/L Carbon Dioxide 25 (23-29) mEq/L BUN 12 (8-23) mg/dL Creatinine 0.75 (0.70-1.30) mg/dL Glucose 145 H (70-105) mg/dL Calcium 8.5 L (8.6-10.3) mg/dL Calcium panel 10/09/17 10/09/17 Range/Units 03:25 03:25 Calcium 8.5 L (8.6-10.3) mg/dL Phosphorus 3.3 (2.7-4.5) mg/dL Pituitary panel 10/09/17 Range/Units 03:25 Sodium 139 (136-145) mEq/L Potassium 3.4 L (3.5-5.1) mEq/L Chloride 107 (98-107) mEq/L Carbon Dioxide 25 (23-29) mEq/L BUN 12 (8-23) mg/dL Creatinine 0.75 (0.70-1.30) mg/dL Glucose 145 H (70-105) mg/dL Calcium 8.5 L (8.6-10.3) mg/dL Adrenal panel 10/09/17 Range/Units 03:25 Sodium 139 (136-145) mEq/L Potassium 3.4 L (3.5-5.1) mEq/L Chloride 107 (98-107) mEq/L Carbon Dioxide 25 (23-29) mEq/L BUN 12 (8-23) mg/dL Creatinine 0.75 (0.70-1.30) mg/dL Glucose 145 H (70-105) mg/dL Calcium 8.5 L (8.6-10.3) mg/dL - VTE Documentation of Mechanical Device: Intermittent pneumatic compression device Consult Discharge Plan - Plan Instructions: Colectomy (DC), Bacterial Pneumonia (DC) Additional Instructions: 1. No pushing, pulling, or lifting greater than 15 lbs for 4 weeks (depending upon procedure). 2. You may shower beginning today, but no tub baths, soaking, or swimming for 2 weeks. 3. You may resume driving when you are off narcotics and are safe to react in a car. 4. Take ibuprofen every 8 hours for discomfort. If this does not relieve discomfort, you may take the as needed Percocet. Take narcotics as directed. Do not take more narcotics then directed and do not share your narcotics with any other person. Do not drink alcohol while on narcotics. 5. Take stool softeners (Colace) or a water based laxative (Miralax) while taking narcotics. You may hold for loose stools. 6. Report any fevers greater than 100.5F, increase abdominal discomfort, drainage that looks like pus, increased redness or pain at the surgical site, or any vomiting. 7. Report any pain in the calves, shortness of breath, or rapid heartbeat. 8. Follow-up in the office as directed. 9. If you were prescribed antibiotics, do not stop them without talking to your provider. Referrals: Papi Birmingham MD [Partnered Physician] - 10/14/17 10:00 am Prescriptions: OxyCODONE/APAP 7.5/325 [Percocet 7.5/325 MG] 1 each PO Q6HR PRN 6 Days #26 tablet PRN Reason: Pain Ibuprofen [Motrin] 600 mg PO Q8HR PRN #26 tab PRN Reason: Pain Docusate Sodium [Colace] 100 mg PO BID PRN #30 capsule PRN Reason: Constipation levoFLOXacin [Levaquin] 750 mg PO DAILY 6 Days #6 tablet metroNIDAZOLE [Flagyl] 500 mg PO BID 6 Days #12 tablet <Papi Birmingham - Last Filed: 10/10/17 12:28> Date of Encounter: 10/09/17 Objective Vital Signs - Last 8 Hours Temp Pulse Resp BP Pulse Ox 10/10/17 10:45 97.6 F 74 15 108/68 95 10/10/17 07:28 12 94 10/10/17 06:29 98.2 F 92 12 123/74 94 Intake and Output 10/09/17 10/10/17 10/10/17 23:59 07:59 15:59 Intake Total 300 / 300 200 / 200 300 / 300 Output Total 250 / 250 200 / 200 0 / 0 Balance 50 / 50 0 / 0 300 / 300 Intake: IV Fluids 300 / 300 200 / 200 Ofirmev 1,000 mg/100 ml 1,000 200 / 200 100 / 100 mg In 100 ml @ 400 mls/hr IVPB Q6H [facility] Rx#:[id number] Flagyl Premix 500 MG/100 ML 500 100 / 100 100 / 100 mg In 100 ml @ 100 mls/hr IVPB Q8H [facility] Rx#:[id number] Oral 0 / 0 0 / 0 300 / 300 Output: Urine 250 / 250 200 / 200 0 / 0 Other: Meal Dinner Percent of Meal Consumed 20% Stool Size Moderate Moderate Stool Consistency loose loose Stool Characteristics Normal for Patient Normal for Patient Stool Color Brown Brown # Bowel Movements 1 1 Weight 100.5 kg Blood Glucose* 152 135 122 Patient Weight 10/10/17 23:59 Weight 100.5 kg - Labs 10/10/17 04:00 10/10/17 04:00 Diabetes panel 10/10/17 Range/Units 04:00 Sodium 138 (136-145) mEq/L Potassium 4.0 (3.5-5.1) mEq/L Chloride 109 H (98-107) mEq/L Carbon Dioxide 24 (23-29) mEq/L BUN 16 (8-23) mg/dL Creatinine 0.88 (0.70-1.30) mg/dL Glucose 115 H (70-105) mg/dL Calcium 8.8 (8.6-10.3) mg/dL Calcium panel 10/10/17 10/10/17 Range/Units 04:00 04:00 Calcium 8.8 (8.6-10.3) mg/dL Phosphorus 3.5 (2.7-4.5) mg/dL Pituitary panel 10/10/17 Range/Units 04:00 Sodium 138 (136-145) mEq/L Potassium 4.0 (3.5-5.1) mEq/L Chloride 109 H (98-107) mEq/L Carbon Dioxide 24 (23-29) mEq/L BUN 16 (8-23) mg/dL Creatinine 0.88 (0.70-1.30) mg/dL Glucose 115 H (70-105) mg/dL Calcium 8.8 (8.6-10.3) mg/dL Adrenal panel 10/10/17 Range/Units 04:00 Sodium 138 (136-145) mEq/L Potassium 4.0 (3.5-5.1) mEq/L Chloride 109 H (98-107) mEq/L Carbon Dioxide 24 (23-29) mEq/L BUN 16 (8-23) mg/dL Creatinine 0.88 (0.70-1.30) mg/dL Glucose 115 H (70-105) mg/dL Calcium 8.8 (8.6-10.3) mg/dL - Attending Attestation I examined this patient and my medical decision-making was reviewed with the Resident Physician. I agree with the documented findings, disposition and treatment plan as described except to the extent set forth below. I reviewed the above assessment and evaluation with the resident and agree with the above plan. TPN has been decreased by 50%. Advancing diet and overall the patient has been tolerating current diet very well. Positive bowel movements and flatus. Overall I am pleased with the patient's improvements over the past 24-48 hours.
[2017-10-09] MEDS: Levofloxacin 750 MG/150 ML 750 MG/150 ML BAG IVPB SCH (14:10)
[2017-10-09] MEDS ORDERED: Clinimix E 5%-15% SOLUTION 2,000 ML with MVI, adult with vitamin K 10 ML IVC SCH ×2 (17:00)
[2017-10-10] MEDS: Ipratropium/Albuterol Neb 3 ML IH SCH ×5 (00:15→15:50)
[2017-10-10] MEDS: Metoclopramide 10 MG/2 ML VIAL IVP SCH ×2 (01:32→06:39)
[2017-10-10] MEDS: *HR* Metoprolol 5 MG/5 ML VIAL IVP SCH ×2 (01:32→06:39)
[2017-10-10] MEDS: Acetaminophen IV 1,000 MG/100 ML INFUS..BTL IVPB SCH (04:29)
[2017-10-10] MEDS: MetroNIDAZOLE 500 MG/100 ML 500 MG/100 ML BAG IVPB SCH (04:31)
[2017-10-10 05:07] LABS: Basophils # 0.1 K/mcL (0.0-0.2); Basophils % 0.7 %; Eosinophils # 0.6 K/mcL (0.0-0.6); Hematocrit 34.6 % (37.5-50.1); Hemoglobin 11.4 g/dL (12.9-16.9); Immature Granulocytes % 3.9 % (0-4); Lymphocytes # 1.6 K/mcL (0.6-4.6); Lymphocytes % 10.2 %; Mean Corpuscular HGB Conc 32.9 g/dL (31.6-35.5); Mean Corpuscular Hemoglobin 31.6 pg (28.0-33.3); Mean Corpuscular Volume 95.8 fL (83.0-100.0); Mean Platelet Volume 10.2 fL (9.4-12.4); Monocytes # 1.2 K/mcL (0.0-1.3); Monocytes % 8.1 %; Neutrophils # 11.2 K/mcL (1.6-8.9); Nucleated Red Blood Cells 0.1 /100 WBC (0); Platelet Count 325 K/mcL (140-400); Red Blood Count 3.61 M/mcL (4.19-5.50); Red Cell Distribution Width 13.8 % (11.5-14.5); Segmented Neutrophils % 73.1 %
[2017-10-10 05:25] LABS: BUN/Creatinine Ratio 18 (6-26); Blood Urea Nitrogen 16 mg/dL (8-23); Calcium 8.8 mg/dL (8.6-10.3); Carbon Dioxide 24 mEq/L (23-29); Chloride 109 mEq/L (98-107); Glucose 115 mg/dL (70-105); Magnesium 2.1 mg/dL (1.6-2.6); Osmolality,Calculated 288 (280-300); Phosphorous 3.5 mg/dL (2.7-4.5); Sodium 138 mEq/L (136-145); eGFR For African Americans > 60 (> 60); eGFR For Non-African Americans > 60 (> 60)
[2017-10-10] MEDS: *HR* Heparin 5,000 UNIT/ML VIAL SQ SCH (06:39)
[2017-10-10] MEDS: Aspirin Enteric Coated 325 MG Tablet PO SCH (09:38)
[2017-10-10] MEDS: Levofloxacin 750 MG/150 ML 750 MG/150 ML BAG IVPB SCH (09:38)
[2017-10-10] MEDS: Gabapentin 300 MG CAPSULE PO SCH (09:38)
[2017-10-10 10:38] LABS: Bilirubin,Urine Negative (Negative); Blood,Urine Negative (Negative); Clarity,Urine Clear (Clear); Color,Urine Yellow (Yellow); Glucose,Urine (UA) Normal (Normal); Ketones,Urine Negative (Negative); Leukocyte Esterase,Urine Negative (Negative); Nitrite,Urine Negative (Negative); PH,Urine 5.5 pH Units (5.0-8.0); Protein,Urine Negative (Neg-Trace); Specific Gravity,Urine 1.029 (1.010-1.025); Urobilinogen,Urine Normal (Normal)
[2017-10-10 10:46] VITALS: BP 108/68
--- NOTE | 2017-10-10 11:12 | Discharge Summary ---
<Jessica Fernandez-Lisa - Last Filed: 10/10/17 11:10> Orders not resulted at time of discharge: Pending orders 10/05/17 09:11 Culture,Blood [BC] Stat 10/05/17 09:16 Culture,Blood,Additional [BC] Stat 10/06/17 08:49 Culture,Blood [BC] Stat 10/06/17 10:00 Culture,Blood,Additional [BC] Stat Date of Encounter: 10/10/17 Time of Encounter: 10:30 - Discharge Diagnosis (1) Mass of colon Priority: Primary Status: Acute Comments: POD #10 robotic-assisted right hemicolectomy with Dr. 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 Polyp maximum size: 9.0 cm. Benign pericolic lymph nodes (12); negative for metastatic tumor. Resection margins are free of neoplasm. (2) Ileus, postoperative Priority: Secondary Status: Acute (3) Hypertension Priority: Secondary Status: Chronic Qualifiers: Hypertension type: essential hypertension Qualified Code(s): I10 - Essential (primary) hypertension (4) CAD (coronary artery disease) Priority: Secondary Status: Chronic Qualifiers: Coronary Disease-Associated Artery/Lesion type: unspecified vessel or lesion type [place] vs. transplanted heart: [place] heart Associated angina: angina presence unspecified Qualified Code(s): I25.10 - Atherosclerotic heart disease of [place] coronary artery without angina pectoris (5) Hyperlipemia Priority: Secondary Status: Chronic Qualifiers: Hyperlipidemia type: unspecified Qualified Code(s): E78.5 - Hyperlipidemia , unspecified (6) DVT prophylaxis Priority: Secondary Status: Acute (7) Hypokalemia Priority: Secondary Status: Acute (8) Urinary hesitancy Priority: Secondary Status: Acute General Surgery Exam Initial Vital Signs Temp Pulse Resp BP Pulse Ox 99.2 F 81 24 137/80 94 09/29/17 19:42 09/29/17 19:42 09/29/17 19:42 09/29/17 19:42 09/29/17 19:42 - General physical appearance well developed, well nourished, no distress, no pain - Eyes PERRL, normal ocular movement - ENT normal mucosa - Neck trachea midline - Respiratory normal expansion, normal respiratory effort, clear to auscultation - Cardiovascular Cardiovascular exam: Present: RRR, no murmurs/rubs/gallops - Abdomen Abdomen general surgery: Present: bowel sounds present, soft, non tender, distended (Mild distention but improved compare to yesterday exam). Absent: guarding, rebound, rigid - Incision Incision: Present: clean and dry, intact. Absent: draining, purulent - Integumentary Integumentary general surgery: Present: warm and dry, no abnormal pigmentation - Neurologic Present: CN 2-12 grossly intact - Psychiatric Psychiatric general surgery: Present: A&Ox3, appropriate, speech is normal - Hospital Course Hospital course: Mr. Zamora is a 72 year old male who received robotic-assisted right hemicolectomy with Dr. Birmingham on 09/29/17 for a right colon mass. 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 Benign pericolic lymph nodes (12); negative for metastatic tumor. Resection margins are free of neoplasm. The patient tolerated procedure well. Post operatively, the patient developed ileus and urinary hesitancy throughout his hospitalization. The patient also developed bilateral pneumonia in the lower lung bases. During his hospitalization, the patient has received antibiotics, a agrawal catheter, and the NG tube was placed. The patient is urinating without any difficulty at this time. The Agrawal catheter and the NG tube was discontinued in the last few days. Repeat chest x-ray on 10/10/2007 showed stable chest with mild bibasilar atelectasis. The patient's abdominal distention has significantly improved. The patient is tolerating his regular diet without any difficulty, nausea, and vomiting. The patient admits passing flatus, having good bowel movements, no urinary hesitancy, and denies any abdominal pain. The patient denies any fever, headaches, vision changes, near syncope, chest pain, shortness of breath, difficulty breathing, blood in his stool, dysuria, blood in his urine, and any weaknesses. The patient was instructed to follow with his primary care physician within one week. The patient was also instructed to follow-up in the surgery outpatient clinic within 2 weeks. The patient was instructed to continue taking his antibiotics for the next 6 days. The patient verbalizes understanding. The patient has no other concerns at this time. - Time Spent with Patient Total time spent providing and/or coordinating discharge services: - Discharge Medications Prescriptions: OxyCODONE/APAP 7.5/325 [Percocet 7.5/325 MG] 1 each PO Q6HR PRN 6 Days #26 tablet PRN Reason: Pain Ibuprofen [Motrin] 600 mg PO Q8HR PRN #26 tab PRN Reason: Pain Docusate Sodium [Colace] 100 mg PO BID PRN #30 capsule PRN Reason: Constipation levoFLOXacin [Levaquin] 750 mg PO DAILY 6 Days #6 tablet metroNIDAZOLE [Flagyl] 500 mg PO BID 6 Days #12 tablet Home Medications: Captopril [Capoten] 25 mg PO BID 04/24/17 [History] Cyclobenzaprine [Flexeril] 10 mg PO TID PRN 04/24/17 [History] Gabapentin [Neurontin] 300 mg PO TID 04/24/17 [History] Metoprolol [Lopressor] 25 mg PO BID 04/24/17 [History] Atorvastatin [Lipitor] 40 mg PO HS #30 tablet 04/25/17 [Rx] Aspirin [Ecotrin] 325 mg PO DAILY 09/07/17 [History] Docusate Sodium [Colace] 100 mg PO BID PRN #30 capsule 10/10/17 [Rx] Ibuprofen [Motrin] 600 mg PO Q8HR PRN #26 tab 10/10/17 [Rx] OxyCODONE/APAP 7.5/325 [Percocet 7.5/325 MG] 1 each PO Q6HR PRN 6 Days #26 tablet 10/10/17 [Rx] levoFLOXacin [Levaquin] 750 mg PO DAILY 6 Days #6 tablet 10/10/17 [Rx] metroNIDAZOLE [Flagyl] 500 mg PO BID 6 Days #12 tablet 10/10/17 [Rx] Allergies/Adverse Reactions: 3 Allergy/AdvReac Type Severity Reaction Status Date / Time No Known Allergies Allergy Verified 09/29/17 10:54 Date of admission: 09/29/17 20:49 Primary care physician: Mariano Ascencio Jr, MD Consults: 10/05/17 08:11 Consult to Occupational Therapy [CONS] Routine Comment: Evaluate, develop and implement POC Reason for Consult: Mobilization and DC planning Does patient have active BEDREST order?: No Is patient medically & hemodynamically stable?: Yes Patient assessed for mobility or mobilized this visit?: No Consult to Physical Therapy [CONS] Routine Comment: Evaluate, develop and implement POC Reason for Consult: Mobilization and DC planning Does patient have active BEDREST order?: No Is patient medically & hemodynamically stable?: Yes Patient assessed for mobility or mobilized this visit?: No 10/05/17 08:12 consult to franchise development manager [Consult to Nutrition] [CONS] Routine Comment: total IVF (MIV and TPN) titrate to TPN goal Consulting Provider: NUTRITION Reason for Dietary Consult: TPN Start and Manage 10/05/17 08:40 Consult to Invasive Line Access Team [CONS] Routine Reason for Consult: Picc Line Insertion Line Type: PICC PICC line indications: Parental nutrition 10/05/17 08:57 Consult to Respiratory Therapy [CONS] Stat Reason for Consult: Scheduled duonebs in the setting of PNA and atalectasis. Aggressive pulmonary toileting Time Notified: 08:58 Call Completed: No Discharging clinician: Tamara Fernandez Anticipated date of discharge: 10/10/17 Labs on day of discharge: Labs from last 24 hours 10/10/17 10/10/17 10/10/17 09:20 07:58 04:04 WBC RBC Hgb Hct MCV MCH MCHC RDW Plt Count MPV Immature Gran % Seg Neutrophils % Lymphocytes % Monocytes % Eosinophils % Basophils % Neutrophils # Lymphocytes # Monocytes # Eosinophils # Basophils # Nucleated RBCs/100 WBC Sodium Potassium Chloride Carbon Dioxide BUN Creatinine Est GFR ( Amer) Est GFR (Non-Af Amer) BUN/Creatinine Ratio Glucose POC Glucose 135 H 103 H Calculated Osmolality Calcium Phosphorus Magnesium Urine Color Yellow Urine Clarity Clear Urine pH 5.5 Ur Specific [place] 1.029 H Urine Protein Negative Urine Glucose (UA) Normal Urine Ketones Negative Urine Blood Negative Urine Nitrite Negative Urine Bilirubin Negative Urine Urobilinogen Normal Ur Leukocyte Esterase Negative Ur Culture Indicated? NO 10/10/17 10/10/17 10/10/17 04:00 04:00 04:00 WBC 15.4 H RBC 3.61 L Hgb 11.4 L Hct 34.6 L MCV 95.8 MCH 31.6 MCHC 32.9 RDW 13.8 Plt Count 325 MPV 10.2 Immature Gran % 3.9 Seg Neutrophils % 73.1 Lymphocytes % 10.2 Monocytes % 8.1 Eosinophils % 4.0 Basophils % 0.7 Neutrophils # 11.2 H Lymphocytes # 1.6 Monocytes # 1.2 Eosinophils # 0.6 Basophils # 0.1 Nucleated RBCs/100 WBC 0.1 H Sodium 138 Potassium 4.0 Chloride 109 H Carbon Dioxide 24 BUN 16 Creatinine 0.88 Est GFR ( Amer) > 60 Est GFR (Non-Af Amer) > 60 BUN/Creatinine Ratio 18 Glucose 115 H POC Glucose Calculated Osmolality 288 Calcium 8.8 Phosphorus 3.5 Magnesium 2.1 Urine Color Urine Clarity Urine pH Ur Specific [place] Urine Protein Urine Glucose (UA) Urine Ketones Urine Blood Urine Nitrite Urine Bilirubin Urine Urobilinogen Ur Leukocyte Esterase Ur Culture Indicated? 10/10/17 10/09/17 10/09/17 00:05 19:45 15:55 WBC RBC Hgb Hct MCV MCH MCHC RDW Plt Count MPV Immature Gran % Seg Neutrophils % Lymphocytes % Monocytes % Eosinophils % Basophils % Neutrophils # Lymphocytes # Monocytes # Eosinophils # Basophils # Nucleated RBCs/100 WBC Sodium Potassium Chloride Carbon Dioxide BUN Creatinine Est GFR ( Amer) Est GFR (Non-Af Amer) BUN/Creatinine Ratio Glucose POC Glucose 129 H 152 H 98 H Calculated Osmolality Calcium Phosphorus Magnesium Urine Color Urine Clarity Urine pH Ur Specific [place] Urine Protein Urine Glucose (UA) Urine Ketones Urine Blood Urine Nitrite Urine Bilirubin Urine Urobilinogen Ur Leukocyte Esterase Ur Culture Indicated? 10/09/17 10/09/17 10/08/17 10:50 03:42 19:35 WBC RBC Hgb Hct MCV MCH MCHC RDW Plt Count MPV Immature Gran % Seg Neutrophils % Lymphocytes % Monocytes % Eosinophils % Basophils % Neutrophils # Lymphocytes # Monocytes # Eosinophils # Basophils # Nucleated RBCs/100 WBC Sodium Potassium Chloride Carbon Dioxide BUN Creatinine Est GFR ( Amer) Est GFR (Non-Af Amer) BUN/Creatinine Ratio Glucose POC Glucose 151 H 137 H 155 H Calculated Osmolality Calcium Phosphorus Magnesium Urine Color Urine Clarity Urine pH Ur Specific [place] Urine Protein Urine Glucose (UA) Urine Ketones Urine Blood Urine Nitrite Urine Bilirubin Urine Urobilinogen Ur Leukocyte Esterase Ur Culture Indicated? Preliminary micro results at discharge 10/06/17 10:00 Blood Culture - Preliminary Peripheral Venipuncture No growth. 10/06/17 08:49 Blood Culture - Preliminary Peripheral Venipuncture No growth. 10/05/17 09:16 Blood Culture - Preliminary Peripheral Venipuncture No growth. 10/05/17 09:11 Blood Culture - Preliminary Peripheral Venipuncture No growth. - Impressions ITS Impressions Chest X-Ray 10/01/17 08:03 IMPRESSION: Right lower lobe airspace disease suspicious for an infiltrate. Small right effusion. Small left effusion. D/ / 10/01/2017 12:01:23 Qiana Grimm MD / Flavia Rey Interpreting Provider: Qiana Grimm MD Abdomen/Pelvis CT 10/01/17 09:45 IMPRESSION: 1. Status post partial colectomy. No extravasated contrast at the anastomosis. 2. Small amount of free intraperitoneal air and free fluid is likely postsurgical. Correlate for any peritoneal signs. 3. Wedge-shaped delayed enhancement in the left peripheral zone of the prostate gland. This can be seen with prostatitis. Prostate cancer is difficult to exclude. Prostate MRI may be considered after resolution of acute illness. 4. Indeterminate left adrenal nodules. These could be further assessed with MRI or pre and postcontrast CT scan of the abdomen on a non urgent basis. 5. Bibasilar atelectasis. D/ / Herminio Ashby MD / Herminio Ashby MD Interpreting Provider: Herminio Ashby MD Chest/Abdomen X-ray 10/02/17 10:40 IMPRESSION: Dilated loops of small bowel with air-fluid levels could be related to a partial small bowel obstruction or small bowel ileus. Right basilar airspace disease is similar to the prior exam. D/ / Celso Villa MD / Celso Villa MD Interpreting Provider: Celso Villa MD Chest/Abdomen X-ray 10/04/17 12:24 IMPRESSION: Findings may reflect severe adynamic ileus, however a partial or early complete small bowel obstruction cannot be excluded, with decompressed colon favoring this differential. The appearance is more severe than previously. Minimal bibasilar atelectasis. Probable small bilateral pleural effusion. D/ / Kenny Mei / Kenny Mei Interpreting Provider: Kenny Mei X-Ray 10/04/17 14:37 IMPRESSION: Appropriate positioning of NGT. D/ / Kwabena Brennan MD / Kwabena Brennan MD Interpreting Provider: Kwabena Brennan MD Chest/Abdomen X-ray 10/05/17 09:41 IMPRESSION: Stable appearance of the abdomen which may represent postoperative ileus or underlying obstruction. Interval placement of NG tube. D/ / Kwabena Brennan MD / Kwabena Brennan MD Interpreting Provider: Kwabena Brennan MD X-Ray 10/06/17 08:55 IMPRESSION: Enteric tube tip and side port project over the distal stomach. There are a few air-filled dilated loops of bowel in the left upper quadrant. D/ / 10/06/2017 10:09:10 Yael Sales MD / roxann Interpreting Provider: Yael Sales MD Abdomen/Pelvis CT 10/06/17 12:00 IMPRESSION: 1. Somewhat limited evaluation for pulmonary artery emboli. No large central, lobar or segmental pulmonary artery emboli. There is a questionable filling defect at a branch point in a subsegmental right upper lobe pulmonary artery. This location at a branch point can cause the appearance of an artifactual pulmonary artery embolus; however, on the sagittal reconstructions there is still question of a subsegmental pulmonary artery embolus at this level. 2. Increasing area of consolidation in the lung bases, particularly the right lower lobe is compatible with worsening pneumonia. 3. Increasing dilation of small bowel loops in the abdomen with suggestion of transition point at the level of the ileocolonic anastomosis may reflect partial/early small bowel obstruction. Ileus is not excluded. Continued imaging follow-up is recommended. 4. Layering sludge/small gallstones versus vicarious excretion of contrast within the gallbladder. 5. Minimal mesenteric edema is likely reactive. No significant free fluid, fluid collections or extravasation of contrast is appreciated. 6. Induration of the superficial soft tissues overlying the left flank and extending to the left inguinal region with foci of air are nonspecific, but may reflect recent surgical change. Infectious etiologies are not excluded. Clinical correlation is recommended. 7. Critical results were called by Dr. Jeffy Soares to Trinidad Ruiz on 10/06/2017 at 13:17. D/ / Jeffy Soares / Jeffy Soares Interpreting Provider: Jeffy Soares Chest CTA 10/06/17 12:00 IMPRESSION: 1. Somewhat limited evaluation for pulmonary artery emboli. No large central, lobar or segmental pulmonary artery emboli. There is a questionable filling defect at a branch point in a subsegmental right upper lobe pulmonary artery. This location at a branch point can cause the appearance of an artifactual pulmonary artery embolus; however, on the sagittal reconstructions there is still question of a subsegmental pulmonary artery embolus at this level. 2. Increasing area of consolidation in the lung bases, particularly the right lower lobe is compatible with worsening pneumonia. 3. Increasing dilation of small bowel loops in the abdomen with suggestion of transition point at the level of the ileocolonic anastomosis may reflect partial/early small bowel obstruction. Ileus is not excluded. Continued imaging follow-up is recommended. 4. Layering sludge/small gallstones versus vicarious excretion of contrast within the gallbladder. 5. Minimal mesenteric edema is likely reactive. No significant free fluid, fluid collections or extravasation of contrast is appreciated. 6. Induration of the superficial soft tissues overlying the left flank and extending to the left inguinal region with foci of air are nonspecific, but may reflect recent surgical change. Infectious etiologies are not excluded. Clinical correlation is recommended. 7. Critical results were called by Dr. Jeffy Soares to Trinidad Ruiz on 10/06/2017 at 13:17. D/ / Jeffy Soares / Jeffy Soares Interpreting Provider: Jeffy Soares Chest X-Ray 10/09/17 12:33 IMPRESSION: Stable chest. Mild bibasilar atelectasis. D/ / Celso Ambrosio MD / Celso Ambrosio MD Interpreting Provider: Celso Ambrosio MD - Patient Status Disposition: Home, Self-Care Condition: Good Functional capacity at discharge: independent ambulation Overall status at discharge: patient is progressing back to baseline - Discharge Instructions Instructions: Colectomy (DC), Bacterial Pneumonia (DC) Follow Up With: Papi Birmingham MD [Partnered Physician] - 10/14/17 10:00 am Additional Instructions: 1. No pushing, pulling, or lifting greater than 15 lbs for 4 weeks (depending upon procedure). 2. You may shower beginning today, but no tub baths, soaking, or swimming for 2 weeks. 3. You may resume driving when you are off narcotics and are safe to react in a car. 4. Take ibuprofen every 8 hours for discomfort. If this does not relieve discomfort, you may take the as needed Percocet. Take narcotics as directed. Do not take more narcotics then directed and do not share your narcotics with any other person. Do not drink alcohol while on narcotics. 5. Take stool softeners (Colace) or a water based laxative (Miralax) while taking narcotics. You may hold for loose stools. 6. Report any fevers greater than 100.5F, increase abdominal discomfort, drainage that looks like pus, increased redness or pain at the surgical site, or any vomiting. 7. Report any pain in the calves, shortness of breath, or rapid heartbeat. 8. Follow-up in the office as directed. 9. If you were prescribed antibiotics, do not stop them without talking to your provider. - Diet and Activity Activity: increase activity as tolerated Diet: advance to your usual diet <Papi Birmingham - Last Filed: 10/10/17 12:29> Orders not resulted at time of discharge: Pending orders 10/05/17 09:11 Culture,Blood [BC] Stat 10/05/17 09:16 Culture,Blood,Additional [BC] Stat 10/06/17 08:49 Culture,Blood [BC] Stat 10/06/17 10:00 Culture,Blood,Additional [BC] Stat Date of Encounter: 10/10/17 General Surgery Exam Initial Vital Signs Temp Pulse Resp BP Pulse Ox 99.2 F 81 24 137/80 94 09/29/17 19:42 09/29/17 19:42 09/29/17 19:42 09/29/17 19:42 09/29/17 19:42 - Hospital Course Hospital course: Mr. Zamora is a 72 year old male - Time Spent with Patient Total time spent providing and/or coordinating discharge services: Date of admission: 09/29/17 20:49 Primary care physician: Mariano Ascencio Jr, MD Consults: 10/05/17 08:11 Consult to Occupational Therapy [CONS] Routine Comment: Evaluate, develop and implement POC Reason for Consult: Mobilization and DC planning Does patient have active BEDREST order?: No Is patient medically & hemodynamically stable?: Yes Patient assessed for mobility or mobilized this visit?: No Consult to Physical Therapy [CONS] Routine Comment: Evaluate, develop and implement POC Reason for Consult: Mobilization and DC planning Does patient have active BEDREST order?: No Is patient medically & hemodynamically stable?: Yes Patient assessed for mobility or mobilized this visit?: No 10/05/17 08:12 consult to franchise development manager [Consult to Nutrition] [CONS] Routine Comment: total IVF (MIV and TPN) titrate to TPN goal Consulting Provider: NUTRITION Reason for Dietary Consult: TPN Start and Manage 10/05/17 08:40 Consult to Invasive Line Access Team [CONS] Routine Reason for Consult: Picc Line Insertion Line Type: PICC PICC line indications: Parental nutrition 10/05/17 08:57 Consult to Respiratory Therapy [CONS] Stat Reason for Consult: Scheduled duonebs in the setting of PNA and atalectasis. Aggressive pulmonary toileting Time Notified: 08:58 Call Completed: No Labs on day of discharge: Labs from last 24 hours 10/10/17 10/10/17 10/10/17 11:30 09:20 07:58 WBC RBC Hgb Hct MCV MCH MCHC RDW Plt Count MPV Immature Gran % Seg Neutrophils % Lymphocytes % Monocytes % Eosinophils % Basophils % Neutrophils # Lymphocytes # Monocytes # Eosinophils # Basophils # Nucleated RBCs/100 WBC Sodium Potassium Chloride Carbon Dioxide BUN Creatinine Est GFR ( Amer) Est GFR (Non-Af Amer) BUN/Creatinine Ratio Glucose POC Glucose 122 H 135 H Calculated Osmolality Calcium Phosphorus Magnesium Urine Color Yellow Urine Clarity Clear Urine pH 5.5 Ur Specific [place] 1.029 H Urine Protein Negative Urine Glucose (UA) Normal Urine Ketones Negative Urine Blood Negative Urine Nitrite Negative Urine Bilirubin Negative Urine Urobilinogen Normal Ur Leukocyte Esterase Negative Ur Culture Indicated? NO 10/10/17 10/10/17 10/10/17 04:04 04:00 04:00 WBC RBC Hgb Hct MCV MCH MCHC RDW Plt Count MPV Immature Gran % Seg Neutrophils % Lymphocytes % Monocytes % Eosinophils % Basophils % Neutrophils # Lymphocytes # Monocytes # Eosinophils # Basophils # Nucleated RBCs/100 WBC Sodium 138 Potassium 4.0 Chloride 109 H Carbon Dioxide 24 BUN 16 Creatinine 0.88 Est GFR ( Amer) > 60 Est GFR (Non-Af Amer) > 60 BUN/Creatinine Ratio 18 Glucose 115 H POC Glucose 103 H Calculated Osmolality 288 Calcium 8.8 Phosphorus 3.5 Magnesium 2.1 Urine Color Urine Clarity Urine pH Ur Specific [place] Urine Protein Urine Glucose (UA) Urine Ketones Urine Blood Urine Nitrite Urine Bilirubin Urine Urobilinogen Ur Leukocyte Esterase Ur Culture Indicated? 10/10/17 10/10/17 10/09/17 04:00 00:05 19:45 WBC 15.4 H RBC 3.61 L Hgb 11.4 L Hct 34.6 L MCV 95.8 MCH 31.6 MCHC 32.9 RDW 13.8 Plt Count 325 MPV 10.2 Immature Gran % 3.9 Seg Neutrophils % 73.1 Lymphocytes % 10.2 Monocytes % 8.1 Eosinophils % 4.0 Basophils % 0.7 Neutrophils # 11.2 H Lymphocytes # 1.6 Monocytes # 1.2 Eosinophils # 0.6 Basophils # 0.1 Nucleated RBCs/100 WBC 0.1 H Sodium Potassium Chloride Carbon Dioxide BUN Creatinine Est GFR ( Amer) Est GFR (Non-Af Amer) BUN/Creatinine Ratio Glucose POC Glucose 129 H 152 H Calculated Osmolality Calcium Phosphorus Magnesium Urine Color Urine Clarity Urine pH Ur Specific [place] Urine Protein Urine Glucose (UA) Urine Ketones Urine Blood Urine Nitrite Urine Bilirubin Urine Urobilinogen Ur Leukocyte Esterase Ur Culture Indicated? 10/09/17 10/09/17 10/08/17 15:55 03:42 19:35 WBC RBC Hgb Hct MCV MCH MCHC RDW Plt Count MPV Immature Gran % Seg Neutrophils % Lymphocytes % Monocytes % Eosinophils % Basophils % Neutrophils # Lymphocytes # Monocytes # Eosinophils # Basophils # Nucleated RBCs/100 WBC Sodium Potassium Chloride Carbon Dioxide BUN Creatinine Est GFR ( Amer) Est GFR (Non-Af Amer) BUN/Creatinine Ratio Glucose POC Glucose 98 H 137 H 155 H Calculated Osmolality Calcium Phosphorus Magnesium Urine Color Urine Clarity Urine pH Ur Specific [place] Urine Protein Urine Glucose (UA) Urine Ketones Urine Blood Urine Nitrite Urine Bilirubin Urine Urobilinogen Ur Leukocyte Esterase Ur Culture Indicated? Preliminary micro results at discharge 10/06/17 10:00 Blood Culture - Preliminary Peripheral Venipuncture No growth. 10/06/17 08:49 Blood Culture - Preliminary Peripheral Venipuncture No growth. 10/05/17 09:16 Blood Culture - Preliminary Peripheral Venipuncture No growth. 10/05/17 09:11 Blood Culture - Preliminary Peripheral Venipuncture No growth. - Impressions ITS Impressions Chest X-Ray 10/01/17 08:03 IMPRESSION: Right lower lobe airspace disease suspicious for an infiltrate. Small right effusion. Small left effusion. D/ / 10/01/2017 12:01:23 Qiana Grimm MD / Flavia Rey Interpreting Provider: Qiana Grimm MD Abdomen/Pelvis CT 10/01/17 09:45 IMPRESSION: 1. Status post partial colectomy. No extravasated contrast at the anastomosis. 2. Small amount of free intraperitoneal air and free fluid is likely postsurgical. Correlate for any peritoneal signs. 3. Wedge-shaped delayed enhancement in the left peripheral zone of the prostate gland. This can be seen with prostatitis. Prostate cancer is difficult to exclude. Prostate MRI may be considered after resolution of acute illness. 4. Indeterminate left adrenal nodules. These could be further assessed with MRI or pre and postcontrast CT scan of the abdomen on a non urgent basis. 5. Bibasilar atelectasis. D/ / Herminio Ashby MD / Herminio Ashby MD Interpreting Provider: Herminio Ashby MD Chest/Abdomen X-ray 10/02/17 10:40 IMPRESSION: Dilated loops of small bowel with air-fluid levels could be related to a partial small bowel obstruction or small bowel ileus. Right basilar airspace disease is similar to the prior exam. D/ / Celso Villa MD / Celso Villa MD Interpreting Provider: Celso Villa MD Chest/Abdomen X-ray 10/04/17 12:24 IMPRESSION: Findings may reflect severe adynamic ileus, however a partial or early complete small bowel obstruction cannot be excluded, with decompressed colon favoring this differential. The appearance is more severe than previously. Minimal bibasilar atelectasis. Probable small bilateral pleural effusion. D/ / Kenny Mei / Kenny Mei Interpreting Provider: Kenny Mei X-Ray 10/04/17 14:37 IMPRESSION: Appropriate positioning of NGT. D/ / Kwabena Brennan MD / Kwabena Brennan MD Interpreting Provider: Kwabena Brennan MD Chest/Abdomen X-ray 10/05/17 09:41 IMPRESSION: Stable appearance of the abdomen which may represent postoperative ileus or underlying obstruction. Interval placement of NG tube. D/ / Kwabena Brennan MD / Kwabena Brennan MD Interpreting Provider: Kwabena Brennan MD X-Ray 10/06/17 08:55 IMPRESSION: Enteric tube tip and side port project over the distal stomach. There are a few air-filled dilated loops of bowel in the left upper quadrant. D/ / 10/06/2017 10:09:10 Yael Sales MD / [email or web address] Interpreting Provider: Yael Sales MD Abdomen/Pelvis CT 10/06/17 12:00 IMPRESSION: 1. Somewhat limited evaluation for pulmonary artery emboli. No large central, lobar or segmental pulmonary artery emboli. There is a questionable filling defect at a branch point in a subsegmental right upper lobe pulmonary artery. This location at a branch point can cause the appearance of an artifactual pulmonary artery embolus; however, on the sagittal reconstructions there is still question of a subsegmental pulmonary artery embolus at this level. 2. Increasing area of consolidation in the lung bases, particularly the right lower lobe is compatible with worsening pneumonia. 3. Increasing dilation of small bowel loops in the abdomen with suggestion of transition point at the level of the ileocolonic anastomosis may reflect partial/early small bowel obstruction. Ileus is not excluded. Continued imaging follow-up is recommended. 4. Layering sludge/small gallstones versus vicarious excretion of contrast within the gallbladder. 5. Minimal mesenteric edema is likely reactive. No significant free fluid, fluid collections or extravasation of contrast is appreciated. 6. Induration of the superficial soft tissues overlying the left flank and extending to the left inguinal region with foci of air are nonspecific, but may reflect recent surgical change. Infectious etiologies are not excluded. Clinical correlation is recommended. 7. Critical results were called by Dr. Jeffy Soares to Trinidad Ruiz on 10/06/2017 at 13:17. D/ / Jeffy Soares / Jeffy Soares Interpreting Provider: Jeffy Soares Chest CTA 10/06/17 12:00 IMPRESSION: 1. Somewhat limited evaluation for pulmonary artery emboli. No large central, lobar or segmental pulmonary artery emboli. There is a questionable filling defect at a branch point in a subsegmental right upper lobe pulmonary artery. This location at a branch point can cause the appearance of an artifactual pulmonary artery embolus; however, on the sagittal reconstructions there is still question of a subsegmental pulmonary artery embolus at this level. 2. Increasing area of consolidation in the lung bases, particularly the right lower lobe is compatible with worsening pneumonia. 3. Increasing dilation of small bowel loops in the abdomen with suggestion of transition point at the level of the ileocolonic anastomosis may reflect partial/early small bowel obstruction. Ileus is not excluded. Continued imaging follow-up is recommended. 4. Layering sludge/small gallstones versus vicarious excretion of contrast within the gallbladder. 5. Minimal mesenteric edema is likely reactive. No significant free fluid, fluid collections or extravasation of contrast is appreciated. 6. Induration of the superficial soft tissues overlying the left flank and extending to the left inguinal region with foci of air are nonspecific, but may reflect recent surgical change. Infectious etiologies are not excluded. Clinical correlation is recommended. 7. Critical results were called by Dr. Jeffy Soares to [place] Ruiz on 10/06/2017 at 13:17. D/ / Jeffy Soares / Jeffy Soares Interpreting Provider: Jeffy Soares Chest X-Ray 10/09/17 12:33 IMPRESSION: Stable chest. Mild bibasilar atelectasis. D/ / Celso Ambrosio MD / Celso Ambrosio MD Interpreting Provider: Celso Ambrosio MD - Attending Attestation I examined this patient and my medical decision-making was reviewed with the Resident Physician. I agree with the documented findings, disposition and treatment plan as described except to the extent set forth below. I reviewed the above assessment and evaluation and agree with the above- mentioned plan.
== END 2017-10-10 19:27 | disposition home or self-care (01) | DRG 329 ==
LOC: SAMDAY 10:27 → 3ANU 20:49
PROVIDERS: ADMIT Surgery; ATTEND Surgery

== ENCOUNTER 2018-04-21 12:49 | Observation (INO) ==
--- NOTE | 2018-04-21 13:21 | Emergency Department Note ---
Disposition Clinical Impression: Pre-syncope, Weakness Dyspnea Qualifiers: Dyspnea type: unspecified Qualified Code(s): R06.00 - Dyspnea, unspecified Disposition: Admitted As Inpatient Condition: Fair General Adult HPI - General Chief complaint: ED Syncope Stated complaint: Lightheaded Time Seen by Provider: 04/21/18 12:57 Source: patient, family Limitations: no limitations Nursing Notes Reviewed: Yes Vital Signs Reviewed: Yes - History of Present Illness HPI Narrative: 72-year-old male with significant past medical history of COPD and coronary artery disease with 2 stents and CABG presenting to the emergency department with chief complaint of dyspnea and presyncope. According to the patient today while he was out on his tractor he felt very weak and felt that he was going to pass out. He sat down. He did not hit his head. He felt very short of breath at that time. He denied any chest pain or pressure. Family members were concerned he could be having a stroke or heart attack and brought him to the emergency department further evaluation. At this time patient is complaining of shortness of breath but denies any chest pain, abdominal pain, dizziness or headache. Patient does not normally wear oxygen at home. According to family members the symptoms have been happening on and off for the past 3-4 weeks. Pain Scale: 0 - Related Data Home Medications Medication Instructions Recorded Confirmed Captopril [Capoten] 25 mg PO BID 04/24/17 04/21/18 Gabapentin [Neurontin] 300 mg PO TID 04/24/17 04/21/18 Metoprolol [Lopressor] 25 mg PO BID 04/24/17 04/21/18 Aspirin [Ecotrin] 325 mg PO DAILY 09/07/17 04/21/18 Simvastatin [Zocor] 20 mg PO HS 04/21/18 04/21/18 levoFLOXacin [Levofloxacin] 500 mg PO DAILY 04/21/18 04/21/18 Allergies Allergy/AdvReac Type Severity Reaction Status Date / Time No Known Allergies Allergy Verified 09/29/17 10:54 All systems ED: reviewed and negative except as stated. Constitutional: Reports: weakness. Denies: fever, chills Eyes: Reports: as per HPI ENT ED: Reports: as per HPI Cardiovascular: Reports: dyspnea on exertion. Denies: chest pain, palpitations Respiratory: Reports: dyspnea. Denies: cough, wheezes, hemoptysis Gastrointestinal: Denies: abdominal pain, nausea, vomiting Genitourinary: Reports: as per HPI Musculoskeletal: Reports: as per HPI Integumentary: Reports: as per HPI Neurological: Reports: weakness. Denies: numbness, paresthesias Psychiatric: Reports: as per HPI Endocrine: Reports: as per HPI Hematological/Lymphatic: Reports: as per HPI Allergic/Immunologic: Reports: as per HPI Past Medical History - Past Medical History Attestation: Yes The following information was validated with the patient. Medical history: Reports: COPD, coronary artery disease, hyperlipidemia, hypertension, myocardial infarction Surgical history: Reports: angioplasty/stent, appendectomy Psychiatric history: Reports: no psych history - Social History Smoking Status: Never smoker Smokeless Tobacco Status: No Alcohol use: Reports: none Drug use: Reports: none Physical Exam - General Limitations: no limitations General appearance: alert - Head Head exam: atraumatic, normocephalic, normal inspection - Eye Eye exam: Present: normal appearance. Absent: scleral icterus, conjunctival injection - ENT ENT exam: normal exam, mucous membranes moist - Neck Neck exam: Present: normal inspection, full ROM. Absent: tenderness, meningismus - Chest Chest inspection: Present: normal inspection, symmetric chest wall rise. Absent : tenderness, rash - Respiratory Respiratory exam: Present: normal lung sounds bilaterally. Absent: respiratory distress, wheezes - Cardiovascular Cardiovascular exam: Present: regular rate, normal rhythm, normal heart sounds - Abdominal Exam Abdominal exam: Present: soft, Non-Tender. Absent: distention, guarding, rebound - Extremities Exam Extremities exam: Present: normal inspection, full ROM - Neurological Exam Neurological exam: Present: alert, oriented X3 - Psychiatric Psychiatric exam: Present: normal affect, normal mood - Skin Skin exam: Present: warm, intact Course Course Narrative: 72-year-old male presenting for dyspnea and presyncope. In the room patient is alert and oriented 3. Hemodynamically stable. He is dyspneic and conversation but otherwise his physical exam is benign. NIH score of 0. Able to move all 4 extremities without difficulty. Able to answer all questions appropriately. Concern for multiple etiologies including cardiac versus respiratory at this time. We will obtain laboratory analysis including troponin , EKG, chest x-ray along with a CT of the head. Patient's disposition most likely admission due to his conversational dyspnea and weakness at home but pending results. Patient agrees with this plan. - Reevaluation(s) Reevaluation #1: Laboratory analysis baseline except for elevated d-dimer. CTA of the chest was ordered that did not show any sign of pulmonary embolus. Patient remains alert and oriented 3 with stable vital signs. Due to patient's cardiac history, conversational dyspnea and presyncope at home we will plan to admit him for further evaluation. I spoke with the hospitalist on-call who agrees to accept the patient at this time. Patient agrees with this plan. Vital Signs Temperature 97.8 F 04/21/18 12:55 Pulse Rate 61 04/21/18 12:55 Respiratory Rate 18 04/21/18 12:55 Blood Pressure 119/78 04/21/18 12:55 O2 Sat by Pulse Oximetry 99 04/21/18 12:55 Temperature 97.5 F L 04/21/18 19:28 Pulse Rate 63 04/21/18 19:28 Respiratory Rate 14 04/21/18 19:28 Blood Pressure 109/67 04/21/18 19:28 O2 Sat by Pulse Oximetry 97 04/21/18 19:28 Oxygen Delivery Oxygen Delivery Room Air Medical Decision Making - Lab Data Result diagrams: 04/21/18 13:03 04/21/18 13:03 Lab Results 04/21/18 04/21/18 04/21/18 Range/Units 12:45 13:03 13:03 WBC 10.4 (4.3-11.1) K/mcL RBC 4.22 (4.19-5.50) M/mcL Hgb 13.2 (12.9-16.9) g/dL Hct 39.9 (37.5-50.1) % MCV 94.5 (83.0-100.0) fL MCH 31.3 (28.0-33.3) pg MCHC 33.1 (31.6-35.5) g/dL RDW 13.3 (11.5-14.5) % Plt Count 312 (140-400) K/mcL MPV 10.2 (9.4-12.4) fL Immature Gran % 1.4 (0-4) % Seg Neutrophils % 70.7 % Lymphocytes % 15.5 % Monocytes % 7.8 % Eosinophils % 3.6 % Basophils % 1.0 % Neutrophils # 7.3 (1.6-8.9) K/mcL Lymphocytes # 1.6 (0.6-4.6) K/mcL Monocytes # 0.8 (0.0-1.3) K/mcL Eosinophils # 0.4 (0.0-0.6) K/mcL Basophils # 0.1 (0.0-0.2) K/mcL D-Dimer 717 H (0-500) ng/mLFEU Sodium 138 (136-145) mEq/L Potassium 4.6 (3.5-5.1) mEq/L Chloride 106 (98-107) mEq/L Carbon Dioxide 26 (23-29) mEq/L BUN 19 (8-23) mg/dL Creatinine 1.17 (0.70-1.30) mg/dL Est GFR ( Amer) > 60 (> 60) Est GFR (Non-Af Amer) > 60 (> 60) BUN/Creatinine Ratio 16 (6-26) Glucose 103 (70-105) mg/dL Calculated Osmolality 289 (280-300) Calcium 9.4 (8.6-10.3) mg/dL Troponin I < 0.03 (< 0.04) ng/mL Urine Color (Yellow) Urine Clarity (Clear) Urine pH (5.0-8.0) pH Units Ur Specific [place] (1.010-1.025) Urine Protein (Neg-Trace) mg/dL Urine Glucose (UA) (Normal) mg/dL Urine Ketones (Negative) mg/dL Urine Blood (Negative) Urine Nitrite (Negative) Urine Bilirubin (Negative) Urine Urobilinogen (Normal) mg/dL Ur Leukocyte Esterase (Negative) Urine Microscopic RBC (0-3) per hpf Urine Microscopic WBC (0-3) per hpf Ur Squamous Epith Cells (None-Few) per lpf Urine Bacteria (None-Few) per hpf Hyaline Casts (None-Few) per lpf Ur Culture Indicated? (NO) 04/21/18 Range/Units 16:05 WBC (4.3-11.1) K/mcL RBC (4.19-5.50) M/mcL Hgb (12.9-16.9) g/dL Hct (37.5-50.1) % MCV (83.0-100.0) fL MCH (28.0-33.3) pg MCHC (31.6-35.5) g/dL RDW (11.5-14.5) % Plt Count (140-400) K/mcL MPV (9.4-12.4) fL Immature Gran % (0-4) % Seg Neutrophils % % Lymphocytes % % Monocytes % % Eosinophils % % Basophils % % Neutrophils # (1.6-8.9) K/mcL Lymphocytes # (0.6-4.6) K/mcL Monocytes # (0.0-1.3) K/mcL Eosinophils # (0.0-0.6) K/mcL Basophils # (0.0-0.2) K/mcL D-Dimer (0-500) ng/mLFEU Sodium (136-145) mEq/L Potassium (3.5-5.1) mEq/L Chloride (98-107) mEq/L Carbon Dioxide (23-29) mEq/L BUN (8-23) mg/dL Creatinine (0.70-1.30) mg/dL Est GFR ( Amer) (> 60) Est GFR (Non-Af Amer) (> 60) BUN/Creatinine Ratio (6-26) Glucose (70-105) mg/dL Calculated Osmolality (280-300) Calcium (8.6-10.3) mg/dL Troponin I (< 0.04) ng/mL Urine Color Yellow (Yellow) Urine Clarity Clear (Clear) Urine pH 6.0 (5.0-8.0) pH Units Ur Specific [place] > 1.030 H (1.010-1.025) Urine Protein Negative (Neg-Trace) mg/dL Urine Glucose (UA) Normal (Normal) mg/dL Urine Ketones Negative (Negative) mg/dL Urine Blood Negative (Negative) Urine Nitrite Negative (Negative) Urine Bilirubin Negative (Negative) Urine Urobilinogen Normal (Normal) mg/dL Ur Leukocyte Esterase Small H (Negative) Urine Microscopic RBC 0-3 (0-3) per hpf Urine Microscopic WBC 30-50 H (0-3) per hpf Ur Squamous Epith Cells Many H (None-Few) per lpf Urine Bacteria None Seen (None-Few) per hpf Hyaline Casts Few (None-Few) per lpf Ur Culture Indicated? NO. A (NO) - EKG Data EKG #1 EKG attestation: Yes I reviewed and interpreted this EKG. EKG results narrative: Sinus rhythm. 61 beats for minute. RI interval 184, QRS 86, QTC 400. No sign of acute ST segment elevation or ischemia. Compared to previous EKG completed on 10/05/2017 no significant changes noted Attestation Statement - Attestation Attestation: I examined this patient and my medical decision-making was reviewed with the Resident Physician, Dr. Madrigal. I agree with the documented findings, disposition and treatment plan as described except to the extent set forth below. Patient is a 72-year-old white male who is brought to the emergency department by family and had to be brought from his vehicle outside of the ED due to weakness. Patient was brought to the trauma room and on arrival was stating that he was feeling short of breath and lightheaded. Patient states over the past 3 weeks he is been having intermittent episodes of lightheadedness with standing where he feels like he may pass out or fall and immediately sits down and the symptoms shortly resolved. Patient states the only associated symptom with this lightheadedness and shortness of breath and he feels like he has a really tough time breathing. Patient denies any chest pain pressure or heaviness, no palpitations, no syncopal episodes, no history of falls or trauma , no abdominal pain or flank pain. On arrival to the ED patient is only complaining of lightheadedness and shortness of breath. Patient with some mild conversational dyspnea but no hypoxia on arrival. Patient denies any focal weakness no slurred speech no headaches or visual changes. I agree with patient's physical exam findings as documented. Patient's hemodynamically stable on arrival. Patient has no focal neuro deficits. He was called by the charge nurse prior to arrival as a possible stroke alert but his NIH score on arrival was 0 he is having no focal deficits slurred speech vertigo or visual changes. Patient's EKG was normal sinus rhythm without acute ischemia. Patient underwent full cardiac evaluation in the ED had chest x-ray and head CT performed. Patient's labs are unremarkable with the exception of an elevation of his d-dimer. Chest x-ray was also unremarkable, head CT was negative. Patient was sent for CTA of the chest due to symptoms as well as elevated d- dimer. CT of the chest is also unremarkable. Remaining concerned in regards to patient's dyspnea whether or not this could be atypical angina for him, stating that usually he was exerting himself during these episodes of lightheadedness and dyspnea. Patient will be admitted for further evaluation of these symptoms and except to the hospitalist service. He is remained hemodynamically stable while in the ED.
[2018-04-21 13:27] LABS: Basophils # 0.1 K/mcL (0.0-0.2); Eosinophils # 0.4 K/mcL (0.0-0.6); Eosinophils % 3.6 %; Hematocrit 39.9 % (37.5-50.1); Hemoglobin 13.2 g/dL (12.9-16.9); Immature Granulocytes % 1.4 % (0-4); Lymphocytes # 1.6 K/mcL (0.6-4.6); Lymphocytes % 15.5 %; Mean Corpuscular HGB Conc 33.1 g/dL (31.6-35.5); Mean Corpuscular Hemoglobin 31.3 pg (28.0-33.3); Mean Corpuscular Volume 94.5 fL (83.0-100.0); Mean Platelet Volume 10.2 fL (9.4-12.4); Monocytes # 0.8 K/mcL (0.0-1.3); Monocytes % 7.8 %; Neutrophils # 7.3 K/mcL (1.6-8.9); Platelet Count 312 K/mcL (140-400); Red Blood Count 4.22 M/mcL (4.19-5.50); Red Cell Distribution Width 13.3 % (11.5-14.5); Segmented Neutrophils % 70.7 %
[2018-04-21 13:42] LABS: BUN/Creatinine Ratio 16 (6-26); Blood Urea Nitrogen 19 mg/dL (8-23); Calcium 9.4 mg/dL (8.6-10.3); Carbon Dioxide 26 mEq/L (23-29); Chloride 106 mEq/L (98-107); Glucose 103 mg/dL (70-105); Osmolality,Calculated 289 (280-300); Potassium 4.6 mEq/L (3.5-5.1); Sodium 138 mEq/L (136-145); Troponin I < 0.03 ng/mL (< 0.04); eGFR For Non-African Americans > 60 (> 60)
[2018-04-21] MEDS ORDERED: Isovue-370 500 ML INFUS..BTL IV ONE (14:12)
[2018-04-21 16:29] LABS: Bilirubin,Urine Negative (Negative); Blood,Urine Negative (Negative); Clarity,Urine Clear (Clear); Color,Urine Yellow (Yellow); Glucose,Urine (UA) Normal (Normal); Ketones,Urine Negative (Negative); Leukocyte Esterase,Urine Small (Negative); Nitrite,Urine Negative (Negative); Protein,Urine Negative (Neg-Trace); Specific Gravity,Urine > 1.030 (1.010-1.025); Urobilinogen,Urine Normal (Normal)
[2018-04-21 16:37] LABS: Bacteria,Urine None Seen per hpf (None-Few); Hyaline Casts,Urine Few per lpf (None-Few); RBC,Urine 0-3 per hpf (0-3); Squamous Epithelial Cell,Urine Many per lpf (None-Few); WBC,Urine 30-50 per hpf (0-3)
[2018-04-21] MEDS ORDERED: Gabapentin 300 MG CAPSULE PO ONE (17:01)
[2018-04-21] MEDS ORDERED: *HR* HYDROcodone/Acet 5/325 mg TABLET PO PRN (18:27)
--- NOTE | 2018-04-21 18:38 | Internal Med History&Physical ---
Date of Encounter: 04/21/18 Time of Encounter: 18:00 Internal Medicine - H&P: HPI Chief complaint: Dizzy spells Admitted From: Home Plans for Post Hospital Care: Home History of present illness: The patient is a 72-year-old male. It was about 15 years ago when he was diagnosed with myocardial infarction; had 1 stent inserted during her cardiac catheterization at that time. He has not had any cardiac testing cast since then. The patient tells me that he does have spells of dizziness/lightheadedness, when exerting himself. The problem started about 8 weeks ago; gets progressively worse. He has not experienced any syncope or near syncope recently. He has not experienced any resting or exertional chest pain recently. He has had difficulty voiding for about 1 week. Is associated with some hesitancy and dribbling but not pain/burning. He does urinate average 5-6 times per night. He has never been diagnosed with any problems related to his prostate. He has had the feeling of being heart or chills for the last year few days. He has not checked his temperature, yet. His medical problems include coronary artery disease (had myocardial infarction about 15 years ago), hypertension and COPD. He is also treated for chronic left shoulder pain. He started a few years ago after a fall from 10 feet. Recently (the last diffuse last several months) he has been suffering from mild right shoulder pain. He used tobacco quite a bit in the past. He quit smoking about 10 years ago. He quit chewing about 5 years ago. He has no history of alcohol drinking. He denies illicit drug use. REVIEW OF SYSTEMS: All 14 organ systems were reviewed by me with the patient. Positive and pertinent negative findings are listed above. The rest of organ systems is negative. PHYSICAL EXAM: Skin: Free of rash and discoloration. Eyes: Sclera is white. There is no discharge from eyes. ENMT: Oral/pharyngeal mucosa is normal in appearance. There is no discharge from nose or ears. Respiratory: Normal breath sounds with no crackles and wheezes bilaterally. CV: Heart is regular with no gallop or murmur. GI: Abdomen is flat and soft with no palpable mass or visceromegaly. : There is no tenderness in patient's flanks bilaterally. Neuro exam: He has good strength in upper and lower extremities. He has normal eye movements. Psychiatric: He has normal affect. His thought process is appropriate to the situation. ADDITIONAL DATA: His telemetry shows normal findings. EKG has been ordered. D-dimer is mildly elevated. It was followed by a chest x-ray and CT angio of chest. They did not show any particular abnormalities. CT of head shows normal findings. CBC is normal. BMP is normal, too. Troponin is below 0.03. His UA shows 30-50 urine microscopic WBC in the sediment. It shows small amount of her urine leukocyte esterase; is negative for nitrate. A/P: His spells of dizziness/lightheadedness may represent unstable angina. He may also have congestive heart failure. I am ordering an echocardiogram. I requested a cardiology consult. I will keep him on metoprolol, captopril, simvastatin and aspirin. Hypertension. Under control. We will continue metoprolol and captopril. Urinary tract obstruction. We will obtain bladder scan. I will put him on Flomax. I will treat him with IV Rocephin for possible urinary tract obstruction. Chronic left shoulder pain. We will continue gabapentin and when necessary [place]. Past Med Surg Social Fam HX - Past Medical History Medical history: COPD, coronary artery disease, hyperlipidemia, hypertension, myocardial infarction Additional medical history: Colon mass non cancerous Psychiatric history: no psych history - Past Surgical History Surgical History: angioplasty/stent, appendectomy Additional surgical history: cardiac cath/stenting 1 stent - Social History Smoking Status: Never smoker Smokeless Tobacco Status: No Alcohol use: none Drug use: none - Family History Father Adopted: No Living Status: Age at : 94 Cause of : older age Hx Family Cardiac Disorders: Yes (triple bypass at 80) Hx Family Respiratory Disorders: No Hx Family Cancer: No Hx Family GI Disorders: No Hx Family Genitourinary Disorders: No Hx Family Endocrine Disorder: No Hx Family Musculoskeletal Disorders: No Hx Family Neuromuscular Disorders: No Hx Family Neurologic Disorders: No Hx Family HEENT Disorders: No Hx Family Autoimmune Disorders: No Hx Family Reproductive Disorders: No Hx Family Psychosocial Disorders: No Hx Family Medical Disorders: No Mother Adopted: No Living Status: Age at : 76 Hx Family Cardiac Disorders: Yes (passed in sleep of heart attack) Hx Family Respiratory Disorders: No Hx Family Cancer: No Hx Family GI Disorders: No Hx Family Genitourinary Disorders: No Hx Family Endocrine Disorder: No Hx Family Musculoskeletal Disorders: No Hx Family Neuromuscular Disorders: No Hx Family Neurologic Disorders: No Hx Family HEENT Disorders: No Hx Family Autoimmune Disorders: No Hx Family Reproductive Disorders: No Hx Family Psychosocial Disorders: No Hx Family Medical Disorders: No Internal Medicine - H&P: Meds Captopril [Capoten] 25 mg PO BID 04/24/17 [History] Gabapentin [Neurontin] 300 mg PO TID 04/24/17 [History] Metoprolol [Lopressor] 25 mg PO BID 04/24/17 [History] Aspirin [Ecotrin] 325 mg PO DAILY 09/07/17 [History] Simvastatin [Zocor] 20 mg PO HS 04/21/18 [History] levoFLOXacin [Levofloxacin] 500 mg PO DAILY 04/21/18 [History] 3 Allergy/AdvReac Type Severity Reaction Status Date / Time No Known Allergies Allergy Verified 09/29/17 10:54 All Systems PM: A 10-system review of systems was performed and is negative for pertinent findings except as documented above in the HPI. - Constitutional Vitals: Temp Pulse Resp BP Pulse Ox 97.8 F 58 13 118/69 97 04/21/18 12:55 04/21/18 18:28 04/21/18 18:28 04/21/18 18:28 04/21/18 18:28 Exam: xx Internal Med - H&P Results - Labs CBC & Chem 7: 04/21/18 13:03 04/21/18 13:03 - Time Spent With Patient Total time spent is greater than 50% in coordination of care (as documented) at patient's floor/unit and/or counseling patient:
[2018-04-21] MEDS: Gabapentin 300 MG CAPSULE PO SCH (21:27)
[2018-04-21] MEDS: cefTRIAXone 1,000 MG in Water for inj. (sterile) 20 ML 10 ML IVP SCH (21:27)
[2018-04-22] MEDS: *HR* Heparin 5,000 UNIT/ML VIAL SQ SCH ×3 (04:56→21:17)
[2018-04-22] MEDS: Acetaminophen 325 MG TABLET PO PRN ×2 (05:00→16:54)
[2018-04-22] MEDS: Aspirin Enteric Coated 325 MG Tablet PO SCH (07:37)
[2018-04-22] MEDS: Gabapentin 300 MG CAPSULE PO SCH ×3 (07:37→21:17)
--- NOTE | 2018-04-22 10:16 | Cardiology Consult Note ---
Date of Encounter: 04/22/18 Time of Encounter: 10:08 Assessment and Plan (1) Pre-syncope Current Visit: Yes Status: Acute Presents with multiple complaints including weakness, dizziness, and SOB with activity. Symptoms do not always occur together. He denies chest pain. Cardiac work-up so far included troponin that was negative. EKG shows NSR with no acute ST changes. Telemetry review shows normal sinus rhythm to sinus bradycardia with average heart rate 62 bpm. Minimum heart rate was 52 bpm at 4: 03 AM. D-dimer was elevated with negative CT of the chest. TTE in 2017 showed EF 50%, moderate dilated left atrium, aortic root was dilated at 4.4 cm. Agree with repeat TTE. Recommend orthostatic vitals. He notes uncontrolled blood pressures at home. (2) CAD (coronary artery disease) Current Visit: No Status: Chronic History of AK and PCI 15 years ago. Aspirin, statin, and beta yuval. Qualifiers: Coronary Disease-Associated Artery/Lesion type: unspecified vessel or lesion type [place] vs. transplanted heart: [place] heart Associated angina: angina presence unspecified Qualified Code(s): I25.10 - Atherosclerotic heart disease of [place] coronary artery without angina pectoris (3) Shortness of breath Current Visit: No Status: Acute shortness of breath with exertion after recent surgery. May be secondary to deconditioning. Can consider stress test during stay or an outpatient setting. TTE is pending. Further recommendation to follow. Discussion w patient/family: The assessment and plan as outlined above was discussed with the patient and/or family members who expressed understanding and agreement. All questions were answered. Thank you for involving us in the care of your patient. Please call with any questions. History of Present Illness Consult date: 04/22/18 Requesting physician: Alessandro Sauceda Consult reason: unastable angina Chief complaint: dizziness for 6 weeks, SOB with exertion at times, weakness History of present illness: Mr. Zamora is a 72 year old male with past medical history significant for AK and PCI 15 years ago, HTN, HLD, and recent colon resection. He presents with the c/o feeling very week like his legs will not move after doing strenous activity. 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 He often feels fine. Some days he feels week. Denies syncope. Does c/o ongoing dizziness with position change and walking. He also has intermittent SOB with activity. Denies chest pain but does c/o chronic bilateral shoulder pain after falling off a 10 ft ladder. His symptoms started after he had a bowel resection for a benign mass earlier this year. He states he is eating and drinking normal. Denies diarrhea, N/V, or diaphoresis. Denies weight gain, orthopnea, PND, or edema. The symptoms are not what he experienced with his AK 15 years ago. Cardiology consulted for dizziness. Past Med Surg Social Fam HX - Past Medical History Medical history: COPD, coronary artery disease, hyperlipidemia, hypertension, myocardial infarction Additional medical history: Colon mass non cancerous Psychiatric history: no psych history - Past Surgical History Surgical History: angioplasty/stent, appendectomy Additional surgical history: cardiac cath/stenting 1 stent - Social History Smoking Status: Never smoker Smokeless Tobacco Status: No Alcohol use: none Drug use: none - Family History Father Adopted: No Living Status: Age at : 94 Cause of : older age Hx Family Cardiac Disorders: Yes (triple bypass at 80) Hx Family Respiratory Disorders: No Hx Family Cancer: No Hx Family GI Disorders: No Hx Family Genitourinary Disorders: No Hx Family Endocrine Disorder: No Hx Family Musculoskeletal Disorders: No Hx Family Neuromuscular Disorders: No Hx Family Neurologic Disorders: No Hx Family HEENT Disorders: No Hx Family Autoimmune Disorders: No Hx Family Reproductive Disorders: No Hx Family Psychosocial Disorders: No Hx Family Medical Disorders: No Mother Adopted: No Living Status: Age at : 76 Hx Family Cardiac Disorders: Yes (passed in sleep of heart attack) Hx Family Respiratory Disorders: No Hx Family Cancer: No Hx Family GI Disorders: No Hx Family Genitourinary Disorders: No Hx Family Endocrine Disorder: No Hx Family Musculoskeletal Disorders: No Hx Family Neuromuscular Disorders: No Hx Family Neurologic Disorders: No Hx Family HEENT Disorders: No Hx Family Autoimmune Disorders: No Hx Family Reproductive Disorders: No Hx Family Psychosocial Disorders: No Hx Family Medical Disorders: No Medications and Allergies Captopril [Capoten] 25 mg PO BID 04/24/17 [History] Gabapentin [Neurontin] 300 mg PO TID 04/24/17 [History] Metoprolol [Lopressor] 25 mg PO BID 04/24/17 [History] Aspirin [Ecotrin] 325 mg PO DAILY 09/07/17 [History] Simvastatin [Zocor] 20 mg PO HS 04/21/18 [History] levoFLOXacin [Levofloxacin] 500 mg PO DAILY 04/21/18 [History] 3 Allergy/AdvReac Type Severity Reaction Status Date / Time No Known Allergies Allergy Verified 09/29/17 10:54 All Systems Review: The remainder of the systems were reviewed and are negative Physical Examination Vital Signs, Last 4 Hours Temp Pulse Resp BP Pulse Ox 04/22/18 08:06 97.4 F L 55 19 106/66 95 04/22/18 07:00 116/72 General: Conversant, No Apparent Distress HEENT: Atraumatic, Normocephaly, Mucus Membranes Moist Neck: No JVD, Normal carotid pulses Cardiac: Reg Rate and Rhythm, Normal S1 and S2, No Murmur Lungs: Normal Breath Sounds, No Wheeze, Rales, Rhonchi Neuro: Alert and responsive, No focal deficits noted Abdomen: Soft, Non-Tender Skin: No rashes noted on visualized skin Musculoskeletal: No Chest Wall Tenderness Extremities: No Clubbing, No Cyanosis, No Edema, Normal Pulses Results 04/21/18 13:03 04/21/18 13:03 - Imaging and Cardiology Echo: pending - EKG Interpretation EKG results cardiology: personally reviewed (SR with no acute ST changes.) Consult Discharge Plan - Plan Referrals: Mariano Ascencio Jr, MD [Primary Care Provider] -
[2018-04-22] MEDS ORDERED: Perflutren Lipid Microsphere 1.3 ML in 0.9 % Sodium Chloride 8.7 ML IVP ONE (10:17)
[2018-04-22] MEDS: cefTRIAXone 1,000 MG in Water for inj. (sterile) 20 ML 10 ML IVP SCH (17:28)
--- NOTE | 2018-04-22 23:43 | Internal Med Progress Note ---
Hospitalist Progress Note - Encounter Date of Encounter: 04/22/18 Time of Encounter: 19:00 - Subjective Interval History: SUBJECTIVE: The patient feels good. However, he has not had any exertion since admitting him to the hospital floor. Denies chest pain. He denies resting dyspnea, coughing and wheezing. We did echocardiogram. His stress test is pending. OBJECTIVE: Skin: Free of rash and discoloration. ENMT: Oral/pharyngeal mucosa is normal in appearance. Eyes: Sclera is white. There is no discharge from eyes. Respiratory: Normal breath sounds; no crackles or wheezes. CV: Heart is regular; no gallop or murmur. GI: Abdomen is soft and not tender. There is no palpable mass or visceromegaly. Neuro: There is no focal deficits. ASSESSMENT AND PLAN: Dyspnea on exertion. His echocardiogram shows ejection fraction of 50-55%. Stress test is pending. This problem may be due to deconditioning; had appendectomy recently. He may also have equivalent of unstable angina. Hypertension. Under control. We will continue Lopressor and Capoten. Possible urinary tract infection. We will keep him on IV Rocephin. Urine culture is pending. - Exam Vitals: Temp Pulse Resp BP Pulse Ox 97.6 F 59 17 107/68 94 04/22/18 22:59 04/22/18 22:59 04/22/18 22:59 04/22/18 22:59 04/22/18 22:59 Exam: xx - Assessment and Plan (1) LAROSE (dyspnea on exertion) Current Visit: Yes Status: Acute (2) HTN (hypertension) Current Visit: Yes Status: Acute (3) UTI (urinary tract infection) Current Visit: Yes Status: Acute (4) Shoulder pain, left Current Visit: Yes Status: Chronic - Time Spent with Patient Total time spent is greater than 50% in coordination of care (as documented) at patient's floor/unit and/or counseling patient: Internal Medicine: Result - Labs CBC & Chem 7: 04/21/18 13:03 04/21/18 13:03 - ABG Interpretation ABG results: PT/INR, D-dimer D-Dimer 717 ng/mLFEU (0-500) H 04/21/18 12:45 - Impressions Impressions Echocardiogram 04/22/18 18:23 Impressions: LVEF 50-55%. Normal LV chamber size, wall thickness and function. Normal right ventricular structure and function. The aortic root is mildly dilated. No significant valvular dysfunction. Consult Discharge Plan - Plan Referrals: Mariano Ascencio Jr, MD [Primary Care Provider] - (2) HTN (hypertension) Qualifiers: Hypertension type: essential hypertension Qualified Code(s): I10 - Essential (primary) hypertension (3) UTI (urinary tract infection) Qualifiers: Urinary tract infection type: acute cystitis (4) Shoulder pain, left Qualifiers: Chronicity: chronic Qualified Code(s): M25.512 - Pain in left shoulder; G89.29 - Other chronic pain
[2018-04-23] MEDS ORDERED: Regadenoson 0.4 MG/5 ML SYRINGE IVP ONE (05:27)
[2018-04-23] MEDS: *HR* Heparin 5,000 UNIT/ML VIAL SQ SCH ×2 (05:28→15:30)
[2018-04-23] MEDS: Gabapentin 300 MG CAPSULE PO SCH ×2 (11:43→15:30)
[2018-04-23] MEDS: Aspirin Enteric Coated 325 MG Tablet PO SCH (11:43)
--- NOTE | 2018-04-23 15:10 | Cardiology Progress Note ---
Date of Encounter: 04/23/18 Time of Encounter: 15:07 Assessment and Plan (1) Pre-syncope Current Visit: Yes Status: Acute Presents with multiple complaints including weakness, dizziness, and SOB with activity. Symptoms do not always occur together. He denies chest pain. Reports similar event one year ago and negative work-up. Extensive cardiac work-up completed during his stay. Troponin negative x3. EKG shows NSR with no acute ST changes. Telemetry review shows normal sinus rhythm to sinus bradycardia with average heart rate 55 bpm. Minimum heart rate was 50 bpm. No significant bardyacardia seen. No pauses or other arrhythmias. D-dimer was elevated with negative CT of the chest. Orthostatic vitals were okay. Stress test is negative for ischemia. TTE shows preserved EF and no significant valvular disease. No further in- patient work-up. Will consider out-pt monitor at follow-up. Cardiology will sign off. Call with questions. (2) CAD (coronary artery disease) Current Visit: No Status: Chronic History of [place] and PCI 15 years ago. Aspirin, statin, and beta yuval. Stress test was negative for ischemia or infarct.. Qualifiers: Coronary Disease-Associated Artery/Lesion type: unspecified vessel or lesion type [place] vs. transplanted heart: [place] heart Associated angina: angina presence unspecified Qualified Code(s): I25.10 - Atherosclerotic heart disease of [place] coronary artery without angina pectoris (3) Shortness of breath Current Visit: No Status: Acute shortness of breath with exertion after recent surgery. May be secondary to deconditioning. See plan above, cardiac testing negative. Discussion w patient/family: The assessment and plan as outlined above was discussed with the patient and/or family members who expressed understanding and agreement. All questions were answered. Thank you for involving us in the care of your patient. Please call with any questions. Subjective Principal diagnosis: Dizziness, SOB Interval history: Mr. Zamora denies recurrent symptoms overnight. He underwent stress test today. Objective Vital Signs, Last 4 Hours Temp Pulse Resp BP Pulse Ox 04/23/18 12:36 98.2 F 69 16 125/79 97 General: Conversant, No Apparent Distress HEENT: Atraumatic, Normocephaly, Mucus Membranes Moist Neck: No JVD, Normal carotid pulses Cardiac: Reg Rate and Rhythm, Normal S1 and S2, No Murmur Lungs: Normal Breath Sounds, No Wheeze, Rales, Rhonchi Neuro: Alert and responsive, No focal deficits noted Abdomen: Soft, Non-Tender Skin: No rashes noted on visualized skin Musculoskeletal: No Chest Wall Tenderness Extremities: No Clubbing, No Cyanosis, No Edema, Normal Pulses Results 04/21/18 13:03 04/21/18 13:03 - Imaging and Cardiology Stress Test: report reviewed Echo: report reviewed - EKG Interpretation EKG results cardiology: personally reviewed Consult Discharge Plan - Plan Referrals: Mariano Ascencio Jr, MD [Primary Care Provider] - 04/29/18 10:30 am (Appointment made with SARAH Hardy NP)
--- NOTE | 2018-04-23 15:53 | Discharge Summary ---
Orders not resulted at time of discharge: Pending orders 04/22/18 16:03 NM tiffanie perf SPECT multi [NM] Routine Date of Encounter: 04/23/18 Time of Encounter: 15:50 - Discharge Diagnosis (1) LAROSE (dyspnea on exertion) Priority: Primary Status: Acute (2) Physical deconditioning Priority: Primary Status: Acute (3) COPD (chronic obstructive pulmonary disease) Priority: Secondary Status: Chronic Qualifiers: COPD type: unspecified COPD Qualified Code(s): J44.9 - Chronic obstructive pulmonary disease, unspecified (4) UTI (urinary tract infection) Priority: Primary Status: Acute Qualifiers: Urinary tract infection type: acute cystitis Qualified Code(s): N30.00 - Acute cystitis without hematuria (5) BPH with urinary obstruction Priority: Primary Status: Acute (6) HTN (hypertension) Priority: Secondary Status: Chronic Qualifiers: Hypertension type: essential hypertension Qualified Code(s): I10 - Essential (primary) hypertension (7) Shoulder pain, left Priority: Secondary Status: Chronic Qualifiers: Chronicity: chronic Qualified Code(s): M25.512 - Pain in left shoulder; G89.29 - Other chronic pain Hospital course: HOSPITAL COURSE: We admitted this 72-year-old man with complaints of being dizzy/lightheaded and short of breath with any type of exertion he was suffering from those symptoms in the last several weeks preceding this admission. They were not associated with any chest pain. He was diagnosed with myocardial infarction about 15 years ago; cardiac catheterization gave him 1 stent. Cardiology was consulted. EKG and troponins were normal. Echocardiogram revealed normal ejection fraction (no significant abnormalities). It was followed by Cardiolite stress test. The test was normal, too. We felt, that his symptoms described above were caused by deconditioning and developing emphysema. We advised him low level exercise twice a daylike walking 30 minutes twice a day. The patient complained of some burning and difficulty voiding at admission. We treated him with IV Rocephin. I offered him Flomax as he had symptoms suggesting developing urinary tract obstruction. By the time of discharge he is burning subsided. He voided only 2 times in the last night preceding the discharge. CONDITION AT DISCHARGE: He feels good at resting. He continues to be short of breath at medium level walking. Skin: Free of rash and discoloration. Respiratory: Normal breath sounds with no crackles and wheezes bilaterally. CV: Heart is regular with no gallop or murmur. GI: Abdomen is flat and soft with no palpable mass or visceromegaly. Neuro exam: There is no focal deficits. Normal speech, swallowing and gait. SEE DISCHARGE ORDERS/MEDICATIONS.. Discharge discussed with: patient, family - Time Spent with Patient Total time spent providing and/or coordinating discharge services: Greater than 30 minutes (40 minutes..) - Discharge Medications Prescriptions: levoFLOXacin [Levofloxacin] 500 mg PO DAILY 5 Days #5 tablet Tamsulosin [Flomax] 0.4 mg PO DAILY #30 capsule Home Medications: Captopril [Capoten] 25 mg PO BID 04/24/17 [History] Gabapentin [Neurontin] 300 mg PO TID 04/24/17 [History] Metoprolol [Lopressor] 25 mg PO BID 04/24/17 [History] Aspirin [Ecotrin] 325 mg PO DAILY 09/07/17 [History] Simvastatin [Zocor] 20 mg PO HS 04/21/18 [History] Acetaminophen [Tylenol] 650 mg PO Q6HR PRN tablet 04/23/18 [Rx] Tamsulosin [Flomax] 0.4 mg PO DAILY #30 capsule 04/23/18 [Rx] levoFLOXacin [Levofloxacin] 500 mg PO DAILY 5 Days #5 tablet 04/23/18 [Rx] Allergies/Adverse Reactions: 3 Allergy/AdvReac Type Severity Reaction Status Date / Time No Known Allergies Allergy Verified 09/29/17 10:54 Date of admission: 04/21/18 17:46 Primary care physician: Mariano Ascencio Jr, MD Consults: 04/21/18 18:16 Consult to Cardiology [CONS] Routine Comment: Consulting Provider: Cardiology [place] Reason for Consult: Dizzy/lightheaded, when exerting himself. ID/stent - about 15 years ago. Time Notified: 18:00 Call Completed: Yes Discharging clinician: Alessandro Sauceda Anticipated date of discharge: 04/23/18 - Constitutional Vitals: Temp Pulse Resp BP Pulse Ox 98.2 F 69 16 125/79 97 04/23/18 12:36 04/23/18 12:36 04/23/18 12:36 04/23/18 12:36 04/23/18 12:36 General appearance: Present: A&O X 3, no acute distress, answers questions appropriately Exam: xx - Patient Status Disposition: Home, Self-Care Condition: Fair Functional capacity at discharge: independent ambulation Overall status at discharge: patient is progressing back to baseline - Discharge Instructions Instructions: Syncope (DC), Dyspnea (GEN), Dizziness (GEN) Follow Up With: Mariano Ascencio Jr, MD [Primary Care Provider] - 04/29/18 10:30 am (Appointment made with SARAH Hardy NP) Additional Instructions: THE PATIENT WAS ADVISED TO DO TWICE A DAY WALKING; 30 MINUTES OR MORE PER ONE EXERCISE.. HE MAY NEED TO BE EVALUATED BY UROLOGY, IF HIS DIFFICULTY VOIDING DOES NOT GET BETTER IN THE NXT 1-2 WEEKS. Follow-up appointments: If there is not an appointment listed below, please call your physician and schedule a follow-up appointment. If you have congestive heart failure and your symptoms return, make an appointment with your physician. Medication List: Carry an up to date list of medications you are taking at all time. We have given you an updated medication list including any new medications that you have been prescribed. Please provide that list to your primary provider Symptoms: If your condition changes or you experience any of the following symptoms, notify your physician immediately: Unusual or worsening pain, fever, persistent nausea and vomiting, bleeding, increase in swelling (especially in your legs), sudden weight gain, extreme dizziness, chest pain, increased drainage or redness from a wound or incision. Go to the emergency department if you experience a problem with breathing. Weights: If you have a history of swelling or shortness of breath, weigh yourself daily and notify your physician if you have a weight gain of two or more pounds in one day or 5 or more pounds in a week. If you experience any of the warning signs for stroke: Sudden numbness or weakness of the face, arm or leg; especially on one side of the body, sudden confusion, trouble speaking or understanding, sudden trouble seeing in one or both eyes, sudden trouble walking, dizziness, loss of balance or coordination, sudden sever headache with no cause; Call 911 or go to the emergency room. Stroke is a medical emergency. Some risk factors for stroke: Age, cigarette smoking, diabetes, excessive alcohol consumption, family history , high blood pressure, overweight, physical inactivity, prior stroke, heart attack, diagnosis of carotid artery stenosis or other artery disease. If you smoke, STOP: Smoking or tobacco use significantly increases your risk of heart and lung disease. Your chance of disease greatly increases if you continue to smoke. For more information, call the [place] tobacco quit line for smoking cessation - QUIT-NOW ( ) - Diet and Activity Activity: increase activity as tolerated Diet: low fat, low cholesterol - VTE Reasons for not Prescribing Prophylaxis: Treatment not Indicated - Low risk for VTE Deep Vein Thrombosis/Pulmonary Embolism Present on Admission: No
[2018-04-23 16:11] VITALS: BP 110/68
--- NOTE | 2018-04-24 11:31 | Electrocardiograph Report ---
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
== END 2018-04-23 17:20 | disposition home or self-care (01) ==
LOC: 3BNU 12:49 → EMEROOARM 12:49 → SUATTDRO 17:46 → 3BNU 18:43
PROVIDERS: ADMIT Internal Medicine; ATTEND Internal Medicine

== ENCOUNTER 2020-07-13 10:46 | Observation (INO) ==
[2020-07-13 11:21] LABS: Basophils % 0.2 %; Eosinophils # 0.1 K/mcL (0.0-0.6); Eosinophils % 1.4 %; Hematocrit 42.3 % (37.5-50.1); Immature Granulocytes % 0.2 % (0-4); Lymphocytes # 1.1 K/mcL (0.6-4.6); Lymphocytes % 25.2 %; Mean Corpuscular HGB Conc 33.1 g/dL (31.6-35.5); Mean Corpuscular Hemoglobin 32.5 pg (28.0-33.3); Mean Corpuscular Volume 98.1 fL (83.0-100.0); Mean Platelet Volume 10.3 fL (9.4-12.4); Monocytes # 0.7 K/mcL (0.0-1.3); Monocytes % 15.6 %; Neutrophils # 2.4 K/mcL (1.6-8.9); Platelet Count 165 K/mcL (140-400); Red Blood Count 4.31 M/mcL (4.19-5.50); Red Cell Distribution Width 14.1 % (11.5-14.5); Segmented Neutrophils % 57.4 %; White Blood Count 4.2 K/mcL (4.3-11.1)
[2020-07-13] MEDS ORDERED: dexAMETHasone 4 MG TABLET PO STA (11:40)
[2020-07-13 11:42] LABS: BUN/Creatinine Ratio 16 (6-26); Blood Urea Nitrogen 22 mg/dL (8-23); Calcium 8.5 mg/dL (8.6-10.3); Carbon Dioxide 23 mEq/L (23-29); Chloride 105 mEq/L (98-107); Glucose 138 mg/dL (70-105); Osmolality,Calculated 288 (280-300); Potassium 4.3 mEq/L (3.5-5.1); Sodium 136 mEq/L (136-145); eGFR For African Americans > 60 (> 60); eGFR For Non-African Americans 50 (> 60)
[2020-07-13 12:58] LABS: Troponin I < 0.03 ng/mL (< 0.04)
[2020-07-13] MEDS ORDERED: Naloxone 0.4 MG/ML INJ IVP PRN (15:01)
[2020-07-13 17:48] LABS: Fibrinogen 439 mg/dL (169-393)
[2020-07-13 17:52] LABS: D-Dimer 371 ng/mLFEU (0-500)
[2020-07-13 17:59] LABS: Albumin 3.9 g/dL (3.5-5.7); Albumin/Globulin Ratio 1.1 (1.1-2.2); Bilirubin,Direct 0.1 mg/dL (0.0-0.2); Bilirubin,Indirect 0.3 mg/dL (0.0-1.0); Bilirubin,Total 0.4 mg/dL (0.3-1.0); Globulin 3.4 g/dL (2.4-3.5); Total Protein 7.3 g/dL (6.4-8.9)
[2020-07-14] MEDS: *HR* Enoxaparin 40 MG/0.4 ML SYRINGE SQ SCH (05:42)
[2020-07-14 06:24] LABS: Basophils % 0.3 %; Hematocrit 43.9 % (37.5-50.1); Hemoglobin 14.3 g/dL (12.9-16.9); Immature Granulocytes % 0.3 % (0-4); Lymphocytes # 0.8 K/mcL (0.6-4.6); Lymphocytes % 20.9 %; Mean Corpuscular HGB Conc 32.6 g/dL (31.6-35.5); Mean Corpuscular Hemoglobin 31.9 pg (28.0-33.3); Mean Platelet Volume 10.7 fL (9.4-12.4); Monocytes # 0.5 K/mcL (0.0-1.3); Monocytes % 12.7 %; Neutrophils # 2.6 K/mcL (1.6-8.9); Platelet Count 176 K/mcL (140-400); Red Blood Count 4.48 M/mcL (4.19-5.50); Segmented Neutrophils % 65.8 %; White Blood Count 3.9 K/mcL (4.3-11.1)
[2020-07-14 06:51] LABS: BUN/Creatinine Ratio 23 (6-26); Blood Urea Nitrogen 28 mg/dL (8-23); Calcium 8.9 mg/dL (8.6-10.3); Carbon Dioxide 21 mEq/L (23-29); Chloride 105 mEq/L (98-107); Glucose 161 mg/dL (70-105); Osmolality,Calculated 293 (280-300); Potassium 4.5 mEq/L (3.5-5.1); Sodium 137 mEq/L (136-145); eGFR For African Americans > 60 (> 60); eGFR For Non-African Americans 58 (> 60)
[2020-07-14] MEDS: Lacri-Lube 3.5 GM TUBE OP SCH ×2 (08:00→20:28)
[2020-07-14] MEDS: Sulfacetamide Sodium 10% OPTH 15 ML BOTTLE LEFT EYE SCH ×4 (09:00→20:29)
[2020-07-14] MEDS: Gabapentin 300 MG CAPSULE PO SCH ×3 (10:38→20:13)
[2020-07-14] MEDS: Aspirin Enteric Coated 325 MG Tablet PO SCH (10:38)
[2020-07-14] MEDS: Ipratropium 1 PUFF INHALER IH SCH ×3 (16:55→22:54)
[2020-07-15 03:24] VITALS: BP 137/86
[2020-07-15] MEDS: Ipratropium 1 PUFF INHALER IH SCH ×4 (03:34→15:36)
[2020-07-15] MEDS: Acetaminophen 325 MG TABLET PO PRN ×2 (03:50→15:41)
[2020-07-15] MEDS: *HR* Enoxaparin 40 MG/0.4 ML SYRINGE SQ SCH (05:08)
[2020-07-15 08:01] LABS: Basophils % 0.2 %; Hematocrit 40.1 % (37.5-50.1); Hemoglobin 13.2 g/dL (12.9-16.9); Immature Granulocytes % 0.6 % (0-4); Lymphocytes # 0.8 K/mcL (0.6-4.6); Lymphocytes % 6.8 %; Mean Corpuscular HGB Conc 32.9 g/dL (31.6-35.5); Mean Corpuscular Hemoglobin 31.1 pg (28.0-33.3); Mean Corpuscular Volume 94.6 fL (83.0-100.0); Mean Platelet Volume 10.8 fL (9.4-12.4); Monocytes # 0.9 K/mcL (0.0-1.3); Monocytes % 7.2 %; Neutrophils # 10.6 K/mcL (1.6-8.9); Platelet Count 183 K/mcL (140-400); Red Blood Count 4.24 M/mcL (4.19-5.50); Segmented Neutrophils % 85.2 %
[2020-07-15 08:08] LABS: White Blood Count 12.4 K/mcL (4.3-11.1)
[2020-07-15 08:20] LABS: BUN/Creatinine Ratio 22 (6-26); Blood Urea Nitrogen 24 mg/dL (8-23); Calcium 8.6 mg/dL (8.6-10.3); Carbon Dioxide 25 mEq/L (23-29); Chloride 105 mEq/L (98-107); Glucose 130 mg/dL (70-105); Magnesium 1.8 mg/dL (1.6-2.6); Osmolality,Calculated 290 (280-300); Phosphorous 2.9 mg/dL (2.7-4.5); Potassium 4.3 mEq/L (3.5-5.1); Sodium 137 mEq/L (136-145); eGFR For African Americans > 60 (> 60); eGFR For Non-African Americans > 60 (> 60)
[2020-07-15] MEDS: Gabapentin 300 MG CAPSULE PO SCH (09:49)
[2020-07-15] MEDS: Lacri-Lube 3.5 GM TUBE OP SCH (09:51)
[2020-07-15] MEDS: Sulfacetamide Sodium 10% OPTH 15 ML BOTTLE LEFT EYE SCH (09:51)
[2020-07-15] MEDS: Aspirin Enteric Coated 325 MG Tablet PO SCH (11:18)
== END 2020-07-15 16:50 | disposition home health service (06) ==
LOC: EMEROOARM 10:46 → 2NENU 10:46 → SUATTDRO 14:59 → 2NENU 15:02
PROVIDERS: ADMIT Internal Medicine; ATTEND Student in an Organized Health Care Education/Training Program

== ENCOUNTER 2020-07-16 16:43 | Inpatient (IN) ==
[2020-07-16] MEDS ORDERED: Isovue-370 500 ML BOTTLE IVP ONE (17:19)
[2020-07-16] MEDS ORDERED: Pantoprazole 40 MG VIAL IVP ONE (17:29)
[2020-07-16] MEDS ORDERED: Metoclopramide 10 MG/2 ML VIAL IVP ONE (17:29)
[2020-07-16 17:55] LABS: Basophils # 0.1 K/mcL (0.0-0.2); Basophils % 0.6 %; Hematocrit 43.1 % (37.5-50.1); Hemoglobin 13.9 g/dL (12.9-16.9); Immature Granulocytes % 1.2 % (0-4); Lymphocytes # 0.9 K/mcL (0.6-4.6); Lymphocytes % 9.5 %; Mean Corpuscular HGB Conc 32.3 g/dL (31.6-35.5); Mean Corpuscular Hemoglobin 31.7 pg (28.0-33.3); Mean Corpuscular Volume 98.2 fL (83.0-100.0); Mean Platelet Volume 11.1 fL (9.4-12.4); Monocytes # 0.8 K/mcL (0.0-1.3); Monocytes % 9.2 %; Neutrophils # 7.2 K/mcL (1.6-8.9); Platelet Count 164 K/mcL (140-400); Red Blood Count 4.39 M/mcL (4.19-5.50); Red Cell Distribution Width 14.6 % (11.5-14.5); Segmented Neutrophils % 79.5 %
[2020-07-16 18:02] LABS: INR 1.1
[2020-07-16 18:16] LABS: Alanine Aminotransferase 22 Units/L (7-52); Albumin 3.6 g/dL (3.5-5.7); Albumin/Globulin Ratio 1.1 (1.1-2.2); Alkaline Phosphatase 64 Units/L (34-104); Aspartate Amino Transferase 27 Units/L (13-39); BUN/Creatinine Ratio 18 (6-26); Bilirubin,Direct 0.1 mg/dL (0.0-0.2); Bilirubin,Indirect 0.4 mg/dL (0.0-1.0); Bilirubin,Total 0.5 mg/dL (0.3-1.0); Blood Urea Nitrogen 23 mg/dL (8-23); C-Reactive Protein 52 mg/L (Less than 10); Calcium 8.2 mg/dL (8.6-10.3); Carbon Dioxide 24 mEq/L (23-29); Chloride 105 mEq/L (98-107); Globulin 3.4 g/dL (2.4-3.5); Glucose 135 mg/dL (70-105); Lactate Dehydrogenase 224 Units/L (140-271); Osmolality,Calculated 288 (280-300); Phosphorous 2.1 mg/dL (2.7-4.5); Potassium 4.4 mEq/L (3.5-5.1); Sodium 136 mEq/L (136-145); Troponin I < 0.03 ng/mL (< 0.04); eGFR For African Americans > 60 (> 60); eGFR For Non-African Americans 54 (> 60)
[2020-07-16 18:31] LABS: Ferritin 399 ng/mL (20-250)
[2020-07-16] MEDS ORDERED: Acetaminophen 325 MG TABLET PO ONE (20:12)
[2020-07-16] MEDS ORDERED: Dexamethasone 4 MG/ML VIAL IVP ONE (21:06)
[2020-07-16] MEDS ORDERED: Naloxone 0.4 MG/ML INJ IVP PRN (21:25)
[2020-07-16] MEDS ORDERED: Benzonatate 100 MG CAPSULE PO PRN (21:29)
[2020-07-16] MEDS: cefTRIAXone 1,000 MG in Water for inj. (sterile) 10 ML IVP SCH (23:00)
[2020-07-16] MEDS ORDERED: Acetaminophen IV 1,000 MG/100 ML BAG IVPB ONE (23:05)
[2020-07-17 06:05] LABS: Basophils % 0.3 %; Hematocrit 42.2 % (37.5-50.1); Hemoglobin 13.6 g/dL (12.9-16.9); Immature Granulocytes % 0.9 % (0-4); Lymphocytes # 0.6 K/mcL (0.6-4.6); Lymphocytes % 6.7 %; Mean Corpuscular HGB Conc 32.2 g/dL (31.6-35.5); Mean Corpuscular Hemoglobin 31.3 pg (28.0-33.3); Mean Platelet Volume 11.1 fL (9.4-12.4); Monocytes # 0.4 K/mcL (0.0-1.3); Monocytes % 4.4 %; Neutrophils # 7.5 K/mcL (1.6-8.9); Platelet Count 163 K/mcL (140-400); Red Blood Count 4.35 M/mcL (4.19-5.50); Red Cell Distribution Width 14.6 % (11.5-14.5); Segmented Neutrophils % 87.7 %; White Blood Count 8.6 K/mcL (4.3-11.1)
[2020-07-17 06:09] LABS: INR 1.1; Prothrombin Time 12.5 Seconds (9.4-12.1)
[2020-07-17 06:19] LABS: BUN/Creatinine Ratio 22 (6-26); Blood Urea Nitrogen 28 mg/dL (8-23); Calcium 8.2 mg/dL (8.6-10.3); Carbon Dioxide 21 mEq/L (23-29); Chloride 105 mEq/L (98-107); Glucose 202 mg/dL (70-105); Magnesium 2.1 mg/dL (1.6-2.6); Osmolality,Calculated 291 (280-300); Phosphorous 3.9 mg/dL (2.7-4.5); Potassium 4.8 mEq/L (3.5-5.1); Sodium 135 mEq/L (136-145); eGFR For African Americans > 60 (> 60); eGFR For Non-African Americans 55 (> 60)
[2020-07-17] MEDS: Ipratropium 1 PUFF INHALER IH SCH ×5 (08:25→23:18)
[2020-07-17] MEDS: Dexamethasone 4 MG/ML VIAL IVP SCH (08:37)
[2020-07-17] MEDS: cefTRIAXone 1,000 MG in Water for inj. (sterile) 10 ML IVP SCH (08:41)
[2020-07-17] MEDS: Doxycycline 100 MG in 0.9 % Sodium Chloride Mini Bag 100 ML IVPB SCH ×2 (11:41→17:06)
[2020-07-17] MEDS: *HR* Enoxaparin 40 MG/0.4 ML SYRINGE SQ SCH (11:43)
[2020-07-17] MEDS ORDERED: Pantoprazole 40 MG VIAL IVP SCH (12:15)
[2020-07-17] MEDS: Acetaminophen 325 MG TABLET PO PRN (21:56)
[2020-07-18] MEDS: Ipratropium 1 PUFF INHALER IH SCH ×4 (03:37→11:26)
[2020-07-18] MEDS: Acetaminophen 325 MG TABLET PO PRN (03:45)
[2020-07-18] MEDS: Ondansetron 4 MG/2 ML VIAL IVP PRN ×2 (04:20→17:11)
[2020-07-18] MEDS ORDERED: Pantoprazole 40 MG VIAL IVP ONE (04:21)
[2020-07-18 04:55] LABS: Hematocrit 43.6 % (37.5-50.1); Hemoglobin 14.3 g/dL (12.9-16.9); Mean Corpuscular HGB Conc 32.8 g/dL (31.6-35.5); Mean Corpuscular Volume 97.5 fL (83.0-100.0); Mean Platelet Volume 11.3 fL (9.4-12.4); Platelet Count 201 K/mcL (140-400); Red Blood Count 4.47 M/mcL (4.19-5.50); Red Cell Distribution Width 14.3 % (11.5-14.5); White Blood Count 22.9 K/mcL (4.3-11.1)
[2020-07-18 05:15] LABS: BUN/Creatinine Ratio 23 (6-26); Blood Urea Nitrogen 25 mg/dL (8-23); Calcium 8.3 mg/dL (8.6-10.3); Carbon Dioxide 20 mEq/L (23-29); Chloride 104 mEq/L (98-107); Glucose 175 mg/dL (70-105); Osmolality,Calculated 291 (280-300); Phosphorous 2.3 mg/dL (2.7-4.5); Potassium 4.3 mEq/L (3.5-5.1); Sodium 136 mEq/L (136-145); eGFR For African Americans > 60 (> 60); eGFR For Non-African Americans > 60 (> 60)
[2020-07-18] MEDS: Doxycycline 100 MG in 0.9 % Sodium Chloride Mini Bag 100 ML IVPB SCH (05:40)
[2020-07-18] MEDS: *HR* Enoxaparin 40 MG/0.4 ML SYRINGE SQ SCH (05:40)
[2020-07-18] MEDS: Dexamethasone 4 MG/ML VIAL IVP SCH (07:56)
[2020-07-18] MEDS: Aspirin Enteric Coated 81 MG Tablet PO SCH (07:56)
[2020-07-18] MEDS: cefTRIAXone 1,000 MG in Water for inj. (sterile) 10 ML IVP SCH (07:57)
[2020-07-18] MEDS ORDERED: Pantoprazole 40 MG VIAL IVP SCH (09:00)
[2020-07-18] MEDS ORDERED: Dexamethasone Sodium Phos/PF 10 MG/ML VIAL IVP ONE (11:28)
[2020-07-18] MEDS ORDERED: Ipratropium 1 PUFF INHALER IH PRN (13:57)
[2020-07-18 20:09] LABS: ABG Base Excess -2 mEq/L (-2 to 3); ABG HCO3 22 mEq/L (21-27); ABG Oxygen Saturation 92 % (95-98); ABG PCO2 34 mmHg (35-45); ABG PH 7.42 pH Units (7.32-7.45); ABG PO2 61 mmHg (85-104); ABG TCO2 23 mEq/L (20-26)
[2020-07-19] MEDS: *HR* Enoxaparin 40 MG/0.4 ML SYRINGE SQ SCH (05:16)
[2020-07-19] MEDS: Aspirin Enteric Coated 81 MG Tablet PO SCH (08:32)
[2020-07-19] MEDS: cefTRIAXone 1,000 MG in Water for inj. (sterile) 10 ML IVP SCH (08:33)
[2020-07-19] MEDS: Dexamethasone Sodium Phos/PF 10 MG/ML VIAL IVP SCH (08:33)
[2020-07-20 02:28] LABS: Hematocrit 38.7 % (37.5-50.1); Mean Corpuscular HGB Conc 33.6 g/dL (31.6-35.5); Mean Corpuscular Hemoglobin 32.1 pg (28.0-33.3); Mean Corpuscular Volume 95.6 fL (83.0-100.0); Mean Platelet Volume 11.1 fL (9.4-12.4); Platelet Count 258 K/mcL (140-400); Red Blood Count 4.05 M/mcL (4.19-5.50); Red Cell Distribution Width 13.9 % (11.5-14.5); White Blood Count 20.1 K/mcL (4.3-11.1)
[2020-07-20 02:34] LABS: Prothrombin Time 11.6 Seconds (9.4-12.1)
[2020-07-20 02:48] LABS: BUN/Creatinine Ratio 36 (6-26); Blood Urea Nitrogen 32 mg/dL (8-23); Carbon Dioxide 23 mEq/L (23-29); Chloride 106 mEq/L (98-107); Glucose 192 mg/dL (70-105); Magnesium 2.4 mg/dL (1.6-2.6); Osmolality,Calculated 292 (280-300); Potassium 4.6 mEq/L (3.5-5.1); Sodium 135 mEq/L (136-145); eGFR For African Americans > 60 (> 60); eGFR For Non-African Americans > 60 (> 60)
[2020-07-20] MEDS: *HR* Enoxaparin 40 MG/0.4 ML SYRINGE SQ SCH (06:31)
[2020-07-20] MEDS: cefTRIAXone 1,000 MG in Water for inj. (sterile) 10 ML IVP SCH (08:46)
[2020-07-20] MEDS: Aspirin Enteric Coated 81 MG Tablet PO SCH (08:46)
[2020-07-20] MEDS: Dexamethasone Sodium Phos/PF 10 MG/ML VIAL IVP SCH (08:47)
[2020-07-21] MEDS: *HR* Enoxaparin 40 MG/0.4 ML SYRINGE SQ SCH (06:03)
[2020-07-21] MEDS: Dexamethasone Sodium Phos/PF 10 MG/ML VIAL IVP SCH (08:47)
[2020-07-21] MEDS: cefTRIAXone 1,000 MG in Water for inj. (sterile) 10 ML IVP SCH (08:47)
[2020-07-21] MEDS: Aspirin Enteric Coated 81 MG Tablet PO SCH (08:48)
[2020-07-22] MEDS: *HR* Enoxaparin 40 MG/0.4 ML SYRINGE SQ SCH (05:49)
[2020-07-22 06:03] LABS: Hematocrit 39.9 % (37.5-50.1); Hemoglobin 13.2 g/dL (12.9-16.9); Mean Corpuscular HGB Conc 33.1 g/dL (31.6-35.5); Mean Corpuscular Hemoglobin 31.7 pg (28.0-33.3); Mean Corpuscular Volume 95.7 fL (83.0-100.0); Platelet Count 338 K/mcL (140-400); Red Blood Count 4.17 M/mcL (4.19-5.50); Red Cell Distribution Width 13.8 % (11.5-14.5); White Blood Count 17.3 K/mcL (4.3-11.1)
[2020-07-22 06:48] LABS: BUN/Creatinine Ratio 33 (6-26); Blood Urea Nitrogen 30 mg/dL (8-23); Calcium 8.4 mg/dL (8.6-10.3); Carbon Dioxide 27 mEq/L (23-29); Chloride 108 mEq/L (98-107); Glucose 138 mg/dL (70-105); Magnesium 2.3 mg/dL (1.6-2.6); Osmolality,Calculated 296 (280-300); Potassium 5.1 mEq/L (3.5-5.1); Sodium 139 mEq/L (136-145); eGFR For African Americans > 60 (> 60); eGFR For Non-African Americans > 60 (> 60)
[2020-07-22] MEDS: Aspirin Enteric Coated 81 MG Tablet PO SCH (08:55)
[2020-07-22] MEDS: cefTRIAXone 1,000 MG in Water for inj. (sterile) 10 ML IVP SCH (08:55)
[2020-07-22] MEDS: Dexamethasone Sodium Phos/PF 10 MG/ML VIAL IVP SCH (08:55)
[2020-07-22 15:10] VITALS: BP 123/81
[2020-07-22] MEDS ORDERED: *HR* Enoxaparin 100 MG/ML SYRINGE SQ SCH (18:00)
[2020-07-23] MEDS ORDERED: *HR* Enoxaparin 40 MG/0.4 ML SYRINGE SQ SCH (06:00)
[2020-07-23] MEDS ORDERED: Dexamethasone Sodium Phos/PF 10 MG/ML VIAL IVP SCH (09:00)
== END 2020-07-22 19:35 | disposition home health service (06) | DRG 871 ==
LOC: EMEROOARM 16:43 → 2NENU 16:43 → SUATTDRO 21:31 → 2NENU 22:19
PROVIDERS: ADMIT Student in an Organized Health Care Education/Training Program; ATTEND Internal Medicine